=== PATIENT | female | born 1985 | race Caucasian/White ===

== ENCOUNTER → 2023-02-08 | Outpatient (CLI) | payer BC, SELFPAY ==
[2023-02-08 08:32] LABS: Absolute Lymphocyte Count 1.43 X10^3/uL (0.83-4.51); Absolute Neutrophil Count 3.6 X10^3/uL (2.0-7.7); Basophil# 0.02 X10^3/uL; Basophil% 0.4 % (0-1); Eosinophils% 1.8 % (0-5); Hematocrit 41.8 % (37-47); Hemoglobin 13.5 g/dL (12.0-15.0); Lymphocyte # 1.43 X10^3/ul (0.83-4.51); Lymphocyte % 26.3 % (19-41); Mean Corp Hgb Conc 32.3 g/dL (32-36); Mean Corpuscular Hgb 29.8 pg (27.0-32.0); Mean Corpuscular Volume 92.3 fL (81-99); Mean Platelet Vol. 11.2 fl (6.2-12.0); Monocyte# 0.24 X10^3/uL; Monocyte% 4.4 % (0-10); NRBC Flagged by Analyzer 0 % (0-5); Neutrophil # 3.63 X10^3/uL (2.7-7.7); Neutrophil % 66.9 % (47-70); Platelet Count 192 K/mm3 (150-450); RBC Distribution Width CV 12.4 % (11.6-14.6); RBC Distribution Width SD 42.3 fl (35.1-43.9); Red Blood Count 4.53 M/mm3 (4.2-5.4); White Blood Count 5.4 K/mm3 (4.4-11.0)
[2023-02-08 08:48] LABS: Hemoglobin A1c 5.3 % (3.8-5.6)
[2023-02-08 08:54] LABS: ALB/GLOB Ratio 1.1 RATIO (0.9-2.4); AST(SGOT) 9 U/L (15-37); Alanine Aminotransfer ALT/SGPT 20 U/L (13-56); Albumin, Serum 3.9 g/dL (3.2-5.0); Alkaline Phosphatase 58 U/L (45-117); Anion Gap 2 (5-15); BUN 12 mg/dL (7-18); BUN/Creat Ratio 13.7 RATIO (10-20); Calcium,Total 8.8 mg/dL (8.5-10.1); Chloride 106 mmol/L (98-107); Cholesterol 203 mg/dL (200); Creatinine, Serum 0.88 mg/dL (0.55-1.02); EST Glomerular Filtration Rate 76 mL/min (>60); Est Glom Filt Rate - Afr Amer 92 mL/min (>60); Globulin 3.6 g/dL (2.2-4.2); Glucose 108 mg/dL (74-106); High Density Lipoprotein 49 mg/dL; Protein, Total 7.5 g/dL (6.4-8.2); Sodium Level 137 mmol/L (136-145); Thyroid Stim Hormone (TSH) 2.91 uIU/mL (0.358-3.74); Triglycerides 168 mg/dL; Very Low Density Lipoprotein 34 mg/dL (5-40)
[2023-02-08 09:48] LABS: Vitamin D,25 Hydroxy 54.4 ng/mL
== END | disposition home or self-care (01) ==
PROVIDERS: PCP Internal Medicine; Referring Provider Obstetrics & Gynecology; Visit Provider Obstetrics & Gynecology
DX: E66.9 Obesity, unspecified (principal)
CPT/HCPCS: 36415; 80053; 80061; 82306; 83036; 84443; 85025

== ENCOUNTER → 2023-07-21 | Outpatient (CLI) | payer BC, SELFPAY ==
[2023-07-21 10:57] LABS: Absolute Lymphocyte Count 1.24 X10^3/uL (0.83-4.51); Absolute Neutrophil Count 2.8 X10^3/uL (2.0-7.7); Basophil# 0.02 X10^3/uL; Basophil% 0.5 % (0-1); Eosinophil# 0.05 X10^3/uL; Eosinophils% 1.2 % (0-5); Hematocrit 42.1 % (37-47); Hemoglobin 13.3 g/dL (12.0-15.0); Lymphocyte # 1.24 X10^3/ul (0.83-4.51); Lymphocyte % 28.6 % (19-41); Mean Corp Hgb Conc 31.6 g/dL (32-36); Mean Corpuscular Hgb 28.8 pg (27.0-32.0); Mean Corpuscular Volume 91.1 fL (81-99); Mean Platelet Vol. 11.7 fl (6.2-12.0); Monocyte# 0.27 X10^3/uL; Monocyte% 6.2 % (0-10); NRBC Flagged by Analyzer 0 % (0-5); Neutrophil # 2.75 X10^3/uL (2.7-7.7); Neutrophil % 63.3 % (47-70); Platelet Count 212 K/mm3 (150-450); Red Blood Count 4.62 M/mm3 (4.2-5.4); White Blood Count 4.3 K/mm3 (4.4-11.0)
[2023-07-21 11:28] LABS: Vitamin D,25 Hydroxy 55.3 ng/mL
[2023-07-21 11:46] LABS: ALB/GLOB Ratio 1.1 RATIO (0.9-2.4); AST(SGOT) 14 U/L (15-37); Alanine Aminotransfer ALT/SGPT 16 U/L (13-56); Alkaline Phosphatase 58 U/L (45-117); Anion Gap 4 (5-15); BUN 15 mg/dL (7-18); BUN/Creat Ratio 19.8 RATIO (10-20); Calcium,Total 9.7 mg/dL (8.5-10.1); Chloride 107 mmol/L (98-107); Creatinine, Serum 0.76 mg/dL (0.55-1.02); EST Glomerular Filtration Rate 90 mL/min (>60); Est Glom Filt Rate - Afr Amer 109 mL/min (>60); Globulin 3.6 g/dL (2.2-4.2); Glucose 97 mg/dL (74-106); Potassium 3.6 mmol/L (3.5-5.1); Protein, Total 7.6 g/dL (6.4-8.2); Sodium Level 140 mmol/L (136-145)
== END | disposition home or self-care (01) ==
LOC: LAB 09:56
PROVIDERS: PCP Internal Medicine; Referring Provider Nurse Practitioner Family; Visit Provider Nurse Practitioner Family
DX: E88.810 Metabolic syndrome (principal)
CPT/HCPCS: 36415; 80053; 82306; 85025

== ENCOUNTER → 2024-03-05 | Outpatient (CLI) | payer BC, SELFPAY ==
--- NOTE | 2024-03-05 11:46 | RAD_ITS ---
HISTORY: sick. TECHNIQUE: XR Chest 2 Views. COMPARISON: 03/09/2016. FINDINGS: CARDIOMEDIASTINAL BORDERS: Cardiac silhouette within normal limits in size. Mediastinal contour unremarkable. LUNGS: Radiographically clear. PLEURA: No pleural effusion or pneumothorax seen. OSSEOUS STRUCTURES: Unremarkable. RAD/Chest PA and Lateral IMPRESSION: No acute cardiopulmonary process identified. Electronically Signed: Babita Mistry MD at 12:45 EST ,
== END | disposition home or self-care (01) ==
PROVIDERS: PCP Internal Medicine; Referring Provider Physician Assistant; Visit Provider Physician Assistant
DX: R05.9 Cough, unspecified (principal)
CPT/HCPCS: 71046

== ENCOUNTER → 2024-05-02 | Outpatient (CLI) | payer BC, SELFPAY ==
[2024-05-02 08:29] LABS: Absolute Lymphocyte Count 1.18 X10^3/uL (0.83-4.51); Absolute Neutrophil Count 2.3 X10^3/uL (2.0-7.7); Basophil# 0.02 X10^3/uL; Basophil% 0.5 % (0-1); Eosinophil# 0.07 X10^3/uL; Eosinophils% 1.8 % (0-5); Hematocrit 41.7 % (37-47); Hemoglobin 13.4 g/dL (12.0-15.0); Lymphocyte # 1.18 X10^3/ul (0.83-4.51); Mean Corp Hgb Conc 32.1 g/dL (32-36); Mean Corpuscular Hgb 28.9 pg (27.0-32.0); Mean Corpuscular Volume 90.1 fL (81-99); Mean Platelet Vol. 10.4 fl (6.2-12.0); Monocyte# 0.23 X10^3/uL; NRBC Flagged by Analyzer 0 % (0-5); Neutrophil # 2.31 X10^3/uL (2.7-7.7); Neutrophil % 60.7 % (47-70); Platelet Count 212 K/mm3 (150-450); RBC Distribution Width CV 13.2 % (11.6-14.6); RBC Distribution Width SD 43.5 fl (35.1-43.9); Red Blood Count 4.63 M/mm3 (4.2-5.4); White Blood Count 3.8 K/mm3 (4.4-11.0)
[2024-05-02 09:08] LABS: ALB/GLOB Ratio 1.1 RATIO (0.9-2.4); AST(SGOT) 12 U/L (15-37); Alanine Aminotransfer ALT/SGPT 19 U/L (13-56); Albumin, Serum 3.9 g/dL (3.2-5.0); Alkaline Phosphatase 55 U/L (45-117); Anion Gap 3 (5-15); BUN 14 mg/dL (7-18); BUN/Creat Ratio 19.1 RATIO (10-20); Chloride 108 mmol/L (98-107); Cholesterol 204 mg/dL (200); Creatinine, Serum 0.73 mg/dL (0.55-1.02); EST Glomerular Filtration Rate 93 mL/min (>60); Est Glom Filt Rate - Afr Amer 113 mL/min (>60); Globulin 3.5 g/dL (2.2-4.2); Glucose 100 mg/dL (74-106); High Density Lipoprotein 53 mg/dL; Potassium 3.9 mmol/L (3.5-5.1); Protein, Total 7.4 g/dL (6.4-8.2); Sodium Level 138 mmol/L (136-145); Triglycerides 127 mg/dL; Very Low Density Lipoprotein 25 mg/dL (5-40)
[2024-05-03 14:43] LABS: Vitamin D,25 Hydroxy 40.4 ng/mL
== END | disposition home or self-care (01) ==
LOC: PSN 07:52
PROVIDERS: PCP Internal Medicine; Referring Provider Nurse Practitioner Family; Visit Provider Nurse Practitioner Family
DX: E66.89 Other obesity not elsewhere classified (principal); E88.810 Metabolic syndrome; E78.9 Disorder of lipoprotein metabolism, unspecified; R53.83 Other fatigue
CPT/HCPCS: 36415; 80053; 80061; 82306; 85025; 93005

== ENCOUNTER → 2024-05-31 | Outpatient (CLI) | payer BC, SELFPAY ==
--- NOTE | 2024-05-31 09:33 | RAD_ITS ---
EXAM: XR Left Ribs, 2 Views CLINICAL INDICATION: RIB INJURY TECHNIQUE: Frontal and oblique views of the left ribs. COMPARISON: No relevant prior studies available. FINDINGS: LUNGS AND PLEURAL SPACES: Unremarkable as visualized. No consolidation. No pneumothorax. BONES/JOINTS: Unremarkable. No displaced rib fractures. RAD/Ribs Unil 2V No CXR IMPRESSION: No displaced rib fractures. Reading [facility]
== END | disposition home or self-care (01) ==
LOC: MTRAD 09:32
PROVIDERS: PCP Internal Medicine; Referring Provider Physician Assistant Surgical; Visit Provider Physician Assistant Surgical
DX: S29.9XXA Unspecified injury of thorax, initial encounter (principal)
CPT/HCPCS: 71100

== ENCOUNTER → 2024-11-02 | Outpatient (CLI) | payer BC, SELFPAY ==
--- NOTE | 2024-11-02 08:58 | BI_ITS ---
EXAM: DIAG MAMM W/CAD, BILAT; BREAST LIMITED UNILATERAL; BILAT BRST DAMARI STAND ALONE 11/02/2024 CLINICAL HISTORY: F, Age 39 y/o , SCREEN FOR BREAST CANCER; LUMP; ABN MAMM TECHNIQUE: DIAG MAMM W/CAD, BILAT; BREAST LIMITED UNILATERAL; BILAT BRST DAMARI STAND ALONE. COMPARISON: Baseline examination, no priors. FINDINGS: MAMMOGRAM: TISSUE DENSITY: The breasts are heterogeneously dense, which may obscure small masses. The mammogram demonstrates that the patient has dense breasts. Supplemental screening with whole breast ultrasound or MRI may be considered for further evaluation. Left breast: There are triangle skin markers indicating the area of palpable concern in the central lower left breast. Underlying the skin markers are no suspicious mammographic findings. Otherwise, there are no suspicious findings in the left breast. Right breast: There is an oval circumscribed mass in the retroareolar right breast. ULTRASOUND: Left breast: Ultrasound performed of the area of patient's palpable concern in the left breast at 5 o'clock to 5:30 o'clock 8 cm from the nipple demonstrates no suspicious sonographic findings. Right breast: Ultrasound performed of the retroareolar right breast demonstrates an oval circumscribed hypoechoic mass measuring 1.6 x 1.3 x 1.0 cm. This likely represents a fibroadenoma. This correlates with the mammographic finding. BI/DIAG MAMM W/CAD, BILAT IMPRESSION: 1. There are no suspicious mammographic or sonographic findings in the area of patient's concern in the left breast. There is no evidence of malignancy in the left breast. 2. Probably benign mass in the retroareolar right breast, which likely represe nts a fibroadenoma. Recommend short interval six-month diagnostic ultrasound of the right breast to further evaluate. OVERALL FINAL ASSESSMENT BI-RADS 3: PROBABLY BENIGN. RECOMMENDATION: 6 Month Follow-up A letter with findings and recommendations will be mailed to the patient. Reading Location: [id number]
--- OUTSIDE RECORDS SUMMARY | 2024-11-02 09:38 | XMS RPT_ITS | CCD ---
Author Organization [facility] Care Team Providers Care Director Of Sports Medicine Name Role Phone Ronnie Underwoodn Janes Admitting Unavailable DennisbradOrlando perez Attending Unavailable No Doctor Assigned, Nodr Primary Care Unavail able Oberhauser, Marlon L Attending Unavailable No Doctor Assigned, Nodr Primary Care Unavail able Oberhauser, Marlon L Attending Unavailable No Doctor Assigned, Nodr Primary Care Unavail able Oberhauser, Marlon L Attending Unavailable No Doctor Assigned, Nodr Primary Care Unavail able Oberhauser, Marlon L Unavailable Unavailable Unavailable Unavailable Unavailable Oberhauser, Marlon L Unavailable Roberto Manzano Unavailable Unavailable OBERHAUSER, MARLON L Primary Care Unavailable Oberhauser Marlon RUBIN Primary Care Provider Oberhauser Isaías RUBINn L Unavailable OBERHAUSER, MARLON L Attending Unavailable OBERHAUSER, MARLON L Referring Unavailable OBERHAUSER, MARLON L Primary Care Unavailable OBERHAUSER, MARLON L Primary Care Unavailable SUDHA, MARLON E Attending Unavailable OBERHAUSER, MARLON L Primary Care Unavailable SUDHA, MARLON E Attending Unavailable OBERHAUSER, MARLON L Primary Care Unavailable SUDHA, MARLON E Attending Unavailable Oberhauser Dr. Marlon RUBIN Primary Care Provider Dr. Marlon Shepherd DO Referring Provider Taylor Palma Attending Provider Brannon Pan Attending Provider [phone] Brannon Pan Referring Provider Taylor Palma Referring Provider Charly BASILIO, Dr. Stephenson Attending Provider Perry Mancia Attending Provider Perry Mancia Referring Provider Cora RUBIN, Dr. Gomez Primary Care Provider Obercastro RUBIN, Dr. Gomez Referring Provider Gracia NOLASCO-Taylor Murdock Attending Provider Obercastro RUBIN, Dr. Gomez Primary Care Provider Cora RUBIN, Dr. Gomez Referring Provider Gracia NOLASCO-CTaylor Attending Provider Obtaylor DO, Dr. Gomez Primary Care Provider Cora RUBIN, Dr. Gomez Referring Provider Gracia NOLASCO-Taylor Murdock Attending Provider Cora RUBIN, Dr. Gomez Primary Care Provider Cora RUBIN, Dr. Gomez Referring Provider Gracia NOLASCO-Taylor Murdock Attending Provider Taylor Fagan Attending Unavailable Oberhauser, Marlon Referring Unavailable Oberhauser, Marlon Primary Care Unavailable Oberhauser, Marlon Primary Care Unavailable Oberhauser, Marlon Referring Unavailable Taylor Fagan Attending Unavailable Oberhauser, Marlon Primary Care Unavailable Oberhauser, Marlon Referring Unavailable Seema Desir NP Attending Unavailable Taylor Fagan Referring Unavailable Seema Parks Attending Unavailable Oberhauser, Marlon Primary Care Unavailable Taylor Fagan Attending Unavailable Oberhauser, Marlon Referring Unavailable Oberhauser, Marlon Primary Care Unavailable Oberhauser, Marlon Referring Unavailable Taylor Fagan Attending Unavailable Oberhauser, Marlon Primary Care Unavailable Oberhauser, Marlon Primary Care Unavailable Oberhauser, Marlon Referring Unavailable Taylor Fagan Attending Unavailable Taylor Fagan Attending Unavailable Oberhauser, Marlon Primary Care Unavailable Oberhauser, Marlon Referring Unavailable Oberhauser, Marlon Referring Unavailable Oberhauser, Marlon Primary Care Unavailable Taylor Fagan Attending Unavailable Oberhauser, Marlon Referring Unavailable Oberhauser, Marlon Primary Care Unavailable Brannon Pan Attending Unavailable Oberhauser, Marlon Referring Unavailable Oberhauser, Marlon Primary Care Unavailable Taylor Fagan Attending Unavailable Taylor Fagan Referring Unavailable Oberhauser, Marlon Primary Care Unavailable Taylor Fagan Attending Unavailable Taylor Fagan Attending Unavailable Oberhauser, Marlon Referring Unavailable Oberhauser, Marlon Primary Care Unavailable Perry Mancia Attending Unavailable Oberhauser, Marlon Referring Unavailable Oberhauser, Marlon Primary Care Unavailable Taylor Fagan Referring Unavailable Care Physician, No Primary Primary Care Unava ilable Taylor Fagan Attending Unavailable Perry Mancia Referring Unavailable Perry Mancia Attending Unavailable Oberhauser, Marlon Primary Care Unavailable Oberhauser, Marlon Primary Care Unavailable Brannon Pan Referring Unavailable Brannon Pan Attending Unavailable Taylor Fagan Attending Unavailable Oberhauser, Marlon Primary Care Unavailable Oberhauser, Marlon Referring Unavailable Taylor Fagan Attending Unavailable Oberhauser, Marlon Primary Care Unavailable Oberhauser, Marlon Referring Unavailable Taylor Fagan Attending Unavailable Oberhauser, Marlon Primary Care Unavailable Oberhauser, Marlon Referring Unavailable Oberhauser, Marlon Primary Care Unavailable Taylor Fagan Attending Unavailable Oberhauser, Marlon Referring Unavailable Medications Current Medications Medication Drug Class(es) Dates Sig (Normalized) Sig (Original) [id number] 200 actuat albuterol 0.09 mg/actuat metered dose inhaler (5 sources) beta2-Adrenergic Agonist Start: 02-23-2024 take 1-2 puff(s) by inhalation every four hours in the evening for wheezing albuterol 90 mcg/actuation inhaler Indications: Acute bronchitis, unspecified organism Inhale 1-2 puffs every 4 hours if needed for wheezing or shortness of breath. 6.7 g 02/23/2024 3:38 PM EST 02/23/2024 Active Start: 03-21-2021 End: 03-30-2021 take 2 puff(s) by inhalation every four hours as needed for wheezing albuterol 90 mcg/inh inhalation aerosol ; 2 puff(s) inhaled every 4 hours, As Needed for wheezing or shortness of breath Quantity: 1 Refills: 0 Ordered: 21-Mar-2021 Marlon Presley Start: 21-Mar-2021 End: 30-Mar-2021 Generic Substitution Allowed Comments: For inhalation only.It is very important that you take or use this exactly as directed. Do not skip doses or discontinue unless directed by your doctor.Obtain medical advice before taking any non-prescription drugs as some may affect the action of this medication.Shake well before use. Start: 03-20-2021 End: 07-01-2021 take 1-2 puff(s) by inhalation every six hours as needed Albuterol Sulfate HFA 108 (90 Base) MCG/ACT Inhalation Aerosol Solution INHALE 1 TO 2 PUFFS EVERY 6 HOURS NEEDED. Quantity: 1 Refills: 0 Ordered: 20-Mar-2021 Marlon Shepherd DO Start : 20-Mar-2021 End : 01-Jul-2021 Complete Comment on above: For inhalation only. It is very important that you take or use this exactly as directed. Do not skip doses or discontinue unless directed by your doctor.Obtain medical advice before taking any non-prescription drugs as some may affect the action of this medication.Shake well before use. clobetasol propionate 0.5 mg/ml topical solution (2 sources) Corticosteroid Start: clobetasol (Temovate) 0.05 % external solution Apply to any areas of psoriasis on the scalp or ears 1x daily as needed 50 mL 6 07/21/2023 1:04 PM EDT 07/14/2023 Active dextromethorphan hydrobromide 3 mg/ml / promethazine hydrochloride 1.25 mg/ml oral solution (2 sources) Phenothiazine, Uncompetitive L-tctjmx-J-aspartate Receptor Antagonist, Sigma-1 Agonist Start: take 5 mL by mouth every six hours in the evening for cough promethazine-DM (Phenergan-DM) 6.25-15 mg/5 mL syrup Indications: Acute bronchitis, unspecified organism Take 5 mL by mouth every 6 hours if needed for cough. *caution - can cause drowsiness* 120 mL 02/23/2024 3:38 PM EST 02/23/2024 Active doxycycline monohydrate 100 mg oral capsule (3 sources) Tetracycline-class Drug Start: End: take 1 capsule by mouth twice daily in the evening doxycycline (Monodox) 100 mg capsule Indications: Acute bronchitis, unspecified organism Take 1 capsule (100 mg) by mouth 2 times a day for 10 days. Take with a full glass of water and do not lie down for at least 30 minutes after. 20 capsule 02/23/2024 3:38 PM EST 02/23/2024 03/04/2024 Active Start: 07-01-2021 take 1 tablet by ruben th twice daily Doxycycline Hyclate 100 MG Oral Tablet TAKE 1 TABLET TWICE DAILY UNTIL GONE. Quantity: 14 Refills: 0 Ordered: 01-Jul-2021 Orlando Underwood PA-C Start : 01-Jul-2021 Active Start: 02-07-2019 End: 02-13-2019 take 1 tablet by mouth twice daily doxycycline hyclate 100 mg oral tablet ; 1 tab(s) orally 2 times a day Quantity: 14 Refills: 0 Ordered: 07-Feb-2019 Dylan Denny Start: 07-Feb-2019 End: 13-Feb-2019 Status: Other Generic Substitution Allowed Comments: Avoid prolonged or excessive exposure to direct and/or artificial sunlight while taking this medication.Do not take this drug if you are .Finish all this medication unless otherwise directed by prescriber.Medication should be taken with plenty of water. Comment on above: Avoid prolonged or e xcessive exposure to direct and/or artificial sunlight while taking this medication.Do not take this drug if you are .Finish all this medication unless otherwise directed by prescriber.Medication should be taken with plenty of water. ELDERBERRY FRUIT (5 sources) ELDERBERRY FRUIT ORAL Take by mouth. Active ELDERBERRY FRUIT ORAL Take by mouth. 0 Active fluconazole 150 mg oral tablet (2 sources) Azole Antifungal Start: 02-23-2024 End: 02-24-2024 take 1 tablet by mouth once in the evening fluconazole (Diflucan) 150 mg tablet Indications: Acute bronchitis, unspecified organism Take 1 tablet (150 mg) by mouth 1 time for 1 dose. Take at first sign of yeast infection. 1 tablet 02/23/2024 3:38 PM EST 02/23/2024 02/24/2024 Active Start: 03-21-2021 End: 03-21-2021 take 1 tablet by mouth once Diflucan 150 mg oral table t ; 1 tab(s) orally once at first sign of yeast infection; can repeat in 72 hours if symptoms persist Quantity: 2 Refills: 0 Ordered: 21-Mar-2021 Marlon Presley Start: 21-Mar-2021 End: 21-Mar-2021 Generic Substitution Allowed Comments: Do not take this drug if you are .Finish all this medication unless otherwise directed by prescriber. Comment on above: Do not take this radha g if you are .Finish all this medication unless otherwise directed by prescriber. levocetirizine dihydrochloride 5 mg oral tablet (14 sources) Histamine-1 Receptor Antagonist Start: take 1 tablet by mouth once daily Levocetirizine (Xyzal) 5 mg tablet Active 5 mg PO DAILY September 09, 2021 12:00am Xyzal 5 MG TABS Use as directed. Quantity: 0 Refills: 0 Ordered: 01-Sep-2018 DO Active Multivitamin preparation (1 source) Start: 09-09-2021 take 1 tablet by mouth once daily Multivitamin Active 1 TABLET PO DAILY September 08, 2021 11:00pm Multivitamin tablet (5 sources) Start: 09-09-2021 Multivitamin t ablet Active 1 {tbl} PO DAILY September 09, 2021 12:00am multivitamin tablet,chewable (5 sources) multivitamin tablet,chewable Chew. Active multivitamin tab let,chewable Chew. 0 Active phentermine hydrochloride 37.5 mg oral tablet (20 sources) Sympathomimetic Amine Anorectic Start: 07-26-2024 End: 09-18-2024 take 1 tablet by mouth once daily Phentermine (Adipex-P) 37.5 mg tablet Active 37.5 mg PO daily 12 04September 18, 2024 9:17am BMI 29.7 Start: 03-29-2024 End: 07-26-2024 Phentermine (Adipex-P) 37.5 mg tablet Discontinued 18.75 mg PO daily 16 May 31, 2024 11:35am July 26, 2024 8:54am BMI 29.7 Start: 05-27-2023 End: 03-05-2024 take 1 tablet by mouth once daily Phentermine (Adipex-P) 37.5 mg tablet Discontinued 37.5 mg PO daily 30 0 February 08, 2024 5:34pm March 05, 2024 12:33pm BMI 30 Start: 02-14-2023 End: 05-27-2023 Phentermine (Adipex-P) 37.5 mg tablet Discontinued 18.75 mg PO daily 15 May 16, 2023 12:33pm May 27, 2023 10:09am BMI 31 predniSONE 10 mg oral tablet (3 sources) Start: 02-23-2024 predniSONE (De ltasone) 10 mg tablet Indications: Acute bronchitis, unspecified organism Take 6 tabs daily x1 day, then take 5 tabs daily x1 day, then take 4 tabs daily x1 day, then take 3 tabs daily x1 day, then take 2 tabs daily x1 day, then take 1 tab daily x1 day. Take with a meal. 21 tablet 02/23/2024 3:38 PM EST 02/23/2024 Active Start: 10-21-2022 End: 06-14-2023 take 2 tablets by mouth three times daily, then take 2 tablets by mouth twice daily, then take 2 tablets by mouth once daily predniSONE (Deltasone) 10 mg tablet TAKE 2 TABS ORALLY 3 TIMES A DAY FOR 4 DAYS, THEN TAKE 2 TABS 2 TIMES A DAY FOR 4 DAYS, THEN 2 TABS DAILY FOR 4 DAYS 48 tablet 0 10/21/2022 06/14/2023 Discontinued (Therapy completed) sulfamethoxazole 800 mg / trimethoprim 160 mg oral tablet (1 source) Dihydrofolate Reductase Inhibitor Antibacterial, Sulfonamide Antimicrobial Start: 03-22-2024 End: 04-01-2024 take 1 tablet by mouth twice daily in the evening sulfamethoxazole-trimethoprim (Bactrim DS) 800-160 mg tablet Indications: Cellulitis of right breast Take 1 tablet by mouth 2 times a day for 10 days. Take with a meal. 20 tablet 03/22/2024 5:12 PM EST 03/22/2024 04/01/2024 Active SUMAtriptan 50 mg oral tablet (4 sources) Serotonin-1b and Serotonin-1d Receptor Agonist End: 06-10-2022 SUMAtriptan (Imitrex) 50 mg tablet Take by mouth. 0 06/10/2022 Discontinued (Therapy completed) SUMAtriptan Succ inate 50 MG Oral Tablet TAKE DIRECTED. Quantity: 0 Refills: 0 Ordered: 01-Sep-2018 DO Active triamcinolone acetonide 0.055 mg/actuat metered dose nasal spray (16 sources) Corticosteroid Start: 06-27-2024 Triamcinolone Acetonide (Nasacort) 55 mcg aerosol,spray Active 2 NMA INTRANASAL daily June 27, 2024 12:00am administer into each nostril Start: 09-09-2021 End: 03-05-2024 Triamcinolone Acetonide (Adriano acort) 55 mcg aerosol,spray Discontinued 2 NMA INTRANASAL DAILY September 09, 2021 12:00am March 05, 2024 12:33pm administer into each nostril Start: 09-09-2021 take 1 spray(s) nasa l route once daily Triamcinolone Acetonide (Nasacort) 55 mcg aerosol,spray Active 2 SPRAY INTRANASAL DAILY September 08, 2021 11:00pm administer into each nostril Start: 07-01-2021 triamcinolone (Nasacort) 55 mcg nasal inhaler Administer into affected nostril(s). 07/01/2021 Active Start: 07-01-2021 Nasacort Aller gy 24HR 55 MCG/ACT Nasal Aerosol USE DIRECTED Quantity: 1 Refills: 0 Ordered: 01-Jul-2021 Orlando Underwood PA-C Start : 01-Jul-2021 Active zyzal (1 source) zyzal Quantity: 0 Refills: 0 Ordered: 07-Feb-2019 Stefani Dumas Status: Other Generic Substitution Allowed Completed/Discontinued Medications Medication Drug Class(es) Dates Sig (Normalized) Sig (Original) Albuterol Sulfate 90 mcg/actuation HFA aerosol inhaler (5 sources) Start: 03-05-2024 End: 06-27-2024 Albuterol Sulfate 90 mcg/actuation HFA aerosol inhaler Discontinued INHALATION March 05, 2024 1:00am June 27, 2024 8:36am Start: 03-05-2024 Albuterol Sulf ate 90 mcg/actuation HFA aerosol inhaler Active INHALATION March 05, 2024 1:00am amoxicillin 875 mg / clavulanate 125 mg oral tablet (2 sources) Penicillin-class Antibacterial Start: 01-25-2020 End: 01-15-2021 take 1 tablet by mouth once daily Amoxicillin-Pot Clavulanate 875-125 MG Oral Tablet TAKE 1 TABLET EVERY 12 HOURS DAILY. Quantity: 14 Refills: 0 Ordered: 30-May-2020 Marlon Shepherd DO Start : 30-May-2020 End : 15-Jan-2021 Complete APAP CAPS (3 sources) APAP CAPS Use as directed. Quantity: 0 Refills: 0 Ordered: 01-Sep-2018 DO Active Ascorbic Acid-Elderberry Fruit (Airborne (Elderberry)) 100-50 mg tablet,chewable (6 sources) Start: 09-09-2021 End: 09-15-2022 Ascorbic Acid-Elderberry Fruit (Airborne (Elderberry)) 100-50 mg tablet,chewable Discontinued {tbl} PO September 09, 2021 12:00am September 15, 2022 8:43am Start: 09-09-2021 End: 09-15-2022 Ascorbic Acid-Elderberry Fru it (Airborne (Elderberry)) 100-50 mg tablet,chewable Discontinued TABLET PO September 08, 2021 11:00pm September 15, 2022 7:43am azithromycin 250 mg oral tablet (7 sources) Macrolide Antimicrobial Start: 03-05-2024 End: 03-29-2024 Azithromycin 250 mg tablet Discontinued 250 mg PO .COMPLEX 12 0 March 05, 2024 1:00am March 29, 2024 12:07pm 2 tablets (500 mg) on day 1, then 1 tablet daily on days 2 through 11 Start: 03-21-2021 End: 03-25-2021 Zithromax Z-Jovon 250 mg oral tablet ; 2 tab(s) by mouth at once on day 1, then 1 tablet once a day on days 2-5 Quantity: 6 Refills: 0 Ordered: 21-Mar-2021 Marlon Presley Start: 21-Mar-2021 End: 25-Mar-2021 Generic Substitution Allowed Comments: Do not take dairy products, antacids, or iron preparations within one hour of this medication.Finish all this medication unless otherwise directed by prescriber. Comment on above: Do not take dairy pr oducts, antacids, or iron preparations within one hour of this medication.Finish all this medication unless otherwise directed by prescriber. benzonatate 200 mg oral capsule (9 sources) Non-narcotic Antitussive Start: 03-05-20 End: 03-29-19 take 1 capsule by mouth three times daily as needed for cough Benzonatate 200 mg capsule Discontinued 200 mg PO THREE TIMES A DAY as needed for cough 20 0 March 05, 2024 1:00am March 29, 2024 12:07pm Start: 03-21-2021 End: 03-30-2021 take 2 capsules by mouth every eight hours as needed benzonatate 100 mg oral capsule ; 1-2 cap(s) orally every 8 hours, As Needed for cough Quantity: 60 Refills: 0 Ordered: 21-Mar-2021 Marlon Presley Start: 21-Mar-2021 End: 30-Mar-2021 Generic Substitution Allowed Comments: May cause drowsiness. Alcohol may intensify this effect. Use care when operating dangerous machinery.Swallow whole. Do not crush. Start: 03-20-2021 End: 07-01-2021 take 1 capsule by mouth three times daily as needed Benzonatate 100 MG Oral Capsule TAKE 1 CAPSULE 3 TIMES DAILY NEEDED. Quantity: 30 Refills: 3 Ordered: 20-Mar-2021 Marlon Shepherd DO Start : 20-Mar-2021 End : 01-Jul-2021 Complete Comment on above: May cause drowsiness . Alcohol may intensify this effect. Use care when operating dangerous machinery.Swallow whole. Do not crush. biotin 5 mg oral capsule (6 sources) Start : 09-09 End: 03-05 take 1 capsule by mouth once daily Biotin 5 mg capsule Discontinued 5 mg PO DAILY September 09, 2021 12:00am March 05, 2024 12:33pm calcium carbonate 1500 mg / cholecalciferol 500 unt oral capsule (6 sources) Vitamin D Start : 09-09 End: 03-05 Calcium Carbonate-Vitamin D3 (Calcium 600 With Vitamin D3) 600 mg-12.5 mcg (500 unit) capsule Discontinued NMA PO September 09, 2021 12:00am March 05, 2024 12:33pm ciprofloxacin 500 mg oral tablet (1 source) Quinolone Antimicrobial Start : 05-03 End: 05-12 take 1 tablet by mouth twice daily Cipro 500 mg oral tablet ; 1 tab(s) orally 2 times a day Quantity: 20 Refills: 0 Ordered: 03-May-2020 Jose Daniels Start: 03-May-2020 End: 12-May-2020 Status: Other Generic Substitution Allowed Comments: Avoid prolonged or excessive exposure to direct and/or artificial sunlight while taking this medication.Check with your doctor before becoming .Do not take dairy products, antacids, or iron preparations within one hour of this medication.Finish all this medication unless otherwise directed by prescriber.Medication should be taken with plenty of water. Comment on above: Avoid prolonged or e xcessive exposure to direct and/or artificial sunlight while taking this medication.Check with your doctor before becoming .Do not take dairy products, antacids, or iron preparations within one hour of this medication.Finish all this medication unless otherwise directed by prescriber.Medication should be taken with plenty of water. cyclobenzaprine hydrochloride 10 mg oral tablet (5 sources) Muscle Relaxant Start : 05-31 End: 06-05 take 1 tablet by mouth three times daily as needed for muscle spasms Cyclobenzaprine 10 mg tablet Discontinued 10 mg PO THREE TIMES A DAY as needed for muscle spasm 20 5 0 May 31, 2024 12:00am June 04, 2024 12:00am June 05, 2024 12:12am 12 hr guaiFENesin 600 mg extended release oral tablet (5 sources) Start : 03-05 End: 06-27 take 1 tablet by mouth twice daily, then take 1 tablet by mouth every twelve hours Guaifenesin (Mucinex) 600 mg tablet extended release 12hr Discontinued 600 mg PO TWICE A DAY March 05, 2024 1:00am June 27, 2024 8:36am methylPREDNISolone 4 mg oral tablet (5 sources) Corticosteroid Start : 05-31 End: 06-06 take 1 tablet by mouth once Methylprednisolone (Medrol (Jovon)) 4 mg tablets,dose pack Discontinued 4 mg PO per package directions 21 6 0 May 31, 2024 12:00am June 05, 2024 12:00am June 06, 2024 12:11am mometasone furoate 0.05 mg/actuat metered dose nasal spray (3 sources) Corticosteroid End: 07-01 Nasonex 50 MCG/ACT SUSP Use as directed. Quantity: 0 Refills: 0 Ordered: 01-Jul-2021 DO End : 01-Jul-2021 Complete Nasonex 50 MCG/A CT SUSP Use as directed. Quantity: 0 Refills: 0 Ordered: 01-Sep-2018 DO Active naproxen 500 mg oral tablet (6 sources) Nonsteroidal Anti-inflammatory Drug Start: 03-09-2016 End: 09-09-2021 take 1 tablet by mouth twice daily Naproxen (Naprosyn) 500 MG tablet Discontinued 500 mg PO TWICE A DAY March 09, 2016 1:00am September 09, 2021 8:45am Problems Active Problems Problem Classification Problem Date Documented Da te Episodic/Chronic Abdominal pain (3 sources) Pain in pelvis; Translations: [Pelvic and perineal pain] Onset: 10-31-2024 09-18-2024 Episodic Comment on above: resolved as of today Acute bronchitis (5 sources) Acute bronchitis; Translations: [Acute bronchitis] Onset: 02-23-2024 03-21-2021 Episodic Asthma (10 sources) Reactive airway disease; Translations: [Asthma, unspecified type, unspecified] Onset: 06-01-2022 06-14-2023 Chronic Menstrual disorders (3 sources) Irregular menstruation, unspecified; Translations: [Irregular periods] Onset: 06-11-2022 Chronic Nonmalignant breast conditions (6 sources) Cellulitis of breast; Translations: [Mastitis without abscess] Onset: 03-22-2024 03-22-2024 Episodic Other lower respiratory disease (6 sources) Cough; Translations: [Cough] 03-05-2024 Episodic Other nervous system disorders (3 sources) H/O: migraine; Translations: [Personal history of other disorders of nervous system and sense organs] Episodic Other nutritional; endocrine; and metabolic disorders (9 sources) Obesity; Translations: [Other obesity] 07-21-2023 Chronic Comment on above: Nutrition plan: Anson snyder calorie restricted nutritional plan 1200 dulce. but no less than 1000. Currently at 1776. Discussed calorie deficit; Myfitnesspal-continue to track as able; protein Approx 95g protein maintain; carbs 200; limit carbs in the next month--doing better with this. Adding variety to her diet; doing okay with this. . Medication plan: Increase phentermine to full tab. EKG stable. Monitor for side effects. control- vasectomy. Behavior intervention: Continue myfitnesspal; limit caffeine intak e in morning until after breakfast. Sleep: routine; make so this is consistent in timing- doing well with this. Exercise plan: [place] steps [place] farm; tredmill occasionally; Added small weights; doing well with this. Getting about 7,000 steps in a day. NEAT activity; resistance training. Nutrition plan: [place]son wang[place]vin calorie restricted nutritional plan 1200 dulce. but no less than 1000. Currently at 1776. Discussed calorie deficit; (has not been able to track much) [employer]fitnesspal-continue to track as able; protein Approx 95g protein maintain; carbs 200; limit carbs in the next month. Adding variety to her diet; doing okay with this. . Medication plan: Phentermine full tab. EKG stable. Monitor for side effects. control- vasectomy. Behavior intervention: Continue myfitnesspal; limit caffeine intake in morning until after breakfast. Sleep: routine; make so this is consistent in timing- doing well with this. Exercise plan: Getting steps around the farm; Add in small weights when able; Getting about 7,000 steps in a day. NEAT activity. Other nutritional; endocrine; and metabolic disorders (20 sources) Cholesterol level - finding; Translations: [Disorder of lipoprotein metabolism, unspecified] 05-01-2024 Chronic Comment on above: recommend heart heal thy diet and weight reduction; last check remains stable. Other nutritional; endocrine; and metabolic disorders (20 sources) Metabolic syndrome X; Translations: [Metabolic syndrome] 02-14-2023 Chronic Comment on above: recommend 5-10% weig ht reduction. elevated fasting glucose, h/o GDM WC 97cm Other nutritional; endocrine; and metabolic disorders (18 sources) Body mass index 30+ - obesity; Translations: [Body mass index (BMI) 30.0-30.9, adult] 05-01-2024 Chronic Comment on above: SW- 211 02/14; 192 lb currently; back up to 201 today 05/01/24. Initial goal- s/p 5% weight reduction within 3 months of nutritional and medication intervention recommendations.initial obesity assessment lab panel reviewed-maintenance labs reviewed. nitial goal- 5% weight reduction within 3 months of nutritional and medication intervention recommendations.initial obesity assessment lab panel ordered SW- Initial goal- 5% weight reduction within 3 months of nutritional and medication intervention recommendations.initial obesity assessment lab panel ordered Other nutritional; endocrine; and metabolic disorders (1 source) Disorder of lipoprotein metabolism, unspecified; Translations: [Disorder of lipoprotein metabolism, unspecified] Onset: 03-05-2024 Chronic Other nutritional; endocrine; and metabolic disorders (1 source) Metabolic syndrome; Translations: [Metabolic syndrome] Onset: 03-05-2024 Chronic Other nutritional; endocrine; and metabolic disorders (1 source) Body mass index (BMI) 30.0-30.9, adult; Translations: [Body mass index [BMI] 30.0-30.9, adult] Onset: 03-05-2024 Chronic Other nutritional; endocrine; and metabolic disorders (3 sources) H/O: obesity; Translations: [Personal history of other endocrine, metabolic, and immunity disorders] Episodic Other nutritional; endocrine; and metabolic disorders (2 sources) Other symptoms and signs concerning food and fluid intake; Translations: [Other symptoms and signs concerning food and fluid intake] Onset: 06-11-2022 Episodic Other nutritional; endocrine; and metabolic disorders (20 sources) Overweight in adulthood with body mass index of 25 or more but less than 30; Translations: [Body mass index (BMI) 29.0-29.9, adult] Onset: 06-14-2023 06-14-2023 Episodic Comment on above: 02/14; 191 to day; down additional 3 pounds. Total loss 10%; 196lb; back up to 201lbs today (05/01/24)--down to 196lbs. Initial goal- s/p 5% weight reduction within 3 months of nutritional and medication intervention recommendations. Additional 5% goal within the next 3 months. initial obesity assessment lab panel reviewed; maintenance labs reviewed 04/2024; reviewed and stable. Nutrition plan: Balanced calorie restricted nutritional plan 1200 dulce. but no less than 1000. Currently at 1776. Discussed calorie deficit; Myfitnesspal-continue to track as able; protein Approx 95g protein; carbs 200; limit carbs in the next month--doing better with this. Switch up foods and add variety to her diet. Switch up to adding more vegetables to diet. Medication plan: Continue low dosing of phentermine (18.75mg) at this time. EKG stable; okay to increase if needed in the future. Monitor for side effects. control- vasectomy. Behavior intervention: Continue myfitnesspal; limit caffeine intake in morning until after breakfast. Sleep: routine; make so this is consistent in timing-doing well with this. Exercise plan: incorporate Treadmill at 3.5 currently; added small weights; doing well with this. Getting about 7,000 steps in a day. NEAT activity; resistance training. 02/14; 191 to day; down additional 3 pounds. Total loss 10%; 196lb; back up to 201lbs today (05/01/24)--down to 196lbs. Initial goal- s/p 5% weight reduction within 3 months of nutritional and medication intervention recommendations. Additional 5% goal within the next 3 months. initial obesity assessment lab panel reviewed; maintenance labs reviewed 04/2024; reviewed and stable. Nutrition plan: Balanced calorie restricted nutritional plan 1200 dulce. but no less than 1000. Currently at 1776. Discussed calorie deficit; Myfitnesspal-continue to track as able; protein Approx 95g protein maintain; carbs 200; limit carbs in the next month--doing better with this. Switch up foods and add variety to her diet. Switch up to adding more vegetables to diet. Medication plan: Continue low dosing of phentermine (18.75mg) at this time. EKG stable; okay to increase if needed in the future. Monitor for side effects. control- vasectomy. Behavior intervention: Continue myfitnesspal; limit caffeine intake in morning until after breakfast. Sleep: routine; make so this is consistent in timing- doing well with this. Exercise plan: Getting steps around the farm; tredmill occasionally; Added small weights; doing well with this. Getting about 7,000 steps in a day. NEAT activity; resistance training. 02/14; 191 to day; down additional 3 pounds. Total loss 10%; 196lb; back up to 201lbs today (05/01/24)--down to 196lbs. Initial goal- s/p 5% weight reduction within 3 months of nutritional and medication intervention recommendations. Additional 5% goal within the next 3 months. initial obesity assessment lab panel reviewed; maintenance labs reviewed 04/2024; reviewed and stable. Nutrition plan: Balanced calorie restricted nutritional plan 1200 dulce. but no less than 1000. Currently at 1776. Discussed calorie deficit; Myfitnesspal-continue to track as able; protein Approx 95g protein maintain; carbs 200; limit carbs in the next month--doing better with this. Adding variety to her diet; doing okay with this. . Medication plan: Increase phentermine to full tab. EKG stable. Monitor for side effects. control- vasectomy. Behavior intervention: Continue myfitnesspal; limit caffeine intake in morning until after breakfast. Sleep: routine; make so this is consistent in timing- doing well with this. Exercise plan: Getting steps around the farm; tredmill occasionally; Added small weights; doing well with this. Getting about 7,000 steps in a day. NEAT activity; resistance training. 02/14; 191 to day; down additional 3 pounds. Total loss 10%; 196lb; back up to 201lbs today (05/01/24)--down to 196lbs. Initial goal- s/p 5% weight reduction within 3 months of nutritional and medication intervention recommendations. Additional 5% goal within the next 3 months. initial obesity assessment lab panel reviewed; maintenance labs reviewed 04/2024; reviewed and stable. 02/14; curren t 197 lbs Initial goal- s/p 5% weight reduction within 3 months of nutritional and medication intervention recommendations. Additional 5% goal within the next 3 months. initial obesity assessment lab panel reviewed; maintenance labs reviewed 04/2024; reviewed and stable. Other screening for suspected conditions (not mental disorders or infectious disease) (4 sources) Encounter for screening for lipoid disorders; Translations: [Patient encounter status] Onset: 06-11-2022 Episodic Other upper respiratory disease (6 sources) Seasonal allergy; Translations: [Other seasonal allergic rhinitis] 09-09-2021 Chronic Unclassified (1 source) Other obesity not elsewhere classified; Translations: [Other obesity not elsewhere classified] Onset: 05-17-2024 Unclassified (1 source) Cough, unspecified; Translations: [Cough, unspecified] Onset: 03-29-2024 Viral infection (2 sources) Disease caused by 2019-nCoV 03-21-2021 Comment on above: COUGH POST COVID X 1 MONTH Past or Other Problems Problem Classification Problem Date Documented Date Episodic/Chronic Conditions associated with dizziness or vertigo (3 sources) Dizziness; Translations: [Dizziness and giddiness] Onset: 06-17-2023 06-17-2023 Episodic Diabetes mellitus without complication (20 sources) Hyperglycemia; Translations: [Impaired fasting glucose] Onset: 03-05-2024 02-14-2023 Episodic Comment on above: nl HgA1C. Headache; including migraine (8 sources) Migraine with aura; Translations: [Migraine with aura, not intractable, without status migrainosus] Onset: 09-15-2017 Resolved: 06-10-2022 06-14-2023 Chronic Malaise and fatigue (20 sources) Other fatigue; Translations: [Fatigue] Onset: 06-10-2022 Episodic Comment on above: nl cbc vit d and tsh Other injuries and conditions due to external causes (1 source) Unspecified injury of thorax, initial encounter; Translations: [Unspecified injury of thorax, initial encounter] Onset: 06-07-2024 Episodic Other nutritional; endocrine; and metabolic disorders (3 sources) Body mass index (BMI) 29.0-29.9, adult; Translations: [Body mass index (BMI) 29.0-29.9, adult] Onset: 06-14-2023 Episodic Other nutritional; endocrine; and metabolic disorders (1 source) Failure to lose weight; Translations: [Other symptoms and signs concerning food and fluid intake] 06-10-2022 Episodic Other skin disorders (6 sources) Folliculitis; Translations: [Other specified diseases of hair and hair follicles] Onset: 06-01-2022 Resolved: 06-10-2022 06-10-2022 Episodic Other upper respiratory infections (8 sources) Sinusitis; Translations: [Unspecified sinusitis (chronic)] Onset: 06-01-2022 Resolved: 06-10-2022 06-10-2022 Chronic Other upper respiratory infections (14 sources) Streptococcal sore throat; Translations: [Streptococcal sore throat] Onset: 06-01-2022 Resolved: 06-10-2022 06-10-2022 Episodic Superficial injury; contusion (10 sources) Contusion of chest; Translations: [Contusion of unspecified front wall of thorax, initial encounter] Onset: 05-31-2024 05-31-2024 Episodic Unclassified (6 sources) Normal hemoglobin A1c level; Translations: [Normal hemoglobin A1c level] 02-08-2023 Unclassified (5 sources) Onset: 06-10-2022 06-10-2022 Results Test Name Value Interpretation Reference Range Facility Senior Analytical Chemist Office Visit Reporton 10-31-2024 Senior Analytical Chemist Office Visit Report [facility] [address], [address] [place] [address] OFFICE VISIT Date of Service: 10/31/24 MR#: [id number] Acct: [id number] Name: STEFANI SANTOS Rep #: [id number] : 1985 Provider: AALIYAH Roberts Age/Sex: 39/F Location: [facility] [place], [place] Status: Signed Intake Vital Signs 09/18/24 08:37 10/31/24 13:03 Height 5 ft 8 in 5 ft 8 in Weight: 197 lb 6 oz 194 lb BMI 29.9 29.5 BP 124/82 H 138/92 H Pulse 80 87 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 Is patient in pain?: No Allergies No Known Allergies Allergy (Verified 10/31/24 13:06) Medications ???Medication ???Instructions ???Recorded ???Confirmed ???Type levocetirizine 5 mg tablet (Xyzal) 5 mg PO DAILY 09/09/21 10/31/24 History multivitamin 1 tab PO DAILY 09/09/21 10/31/24 H istory triamcinolone acetonide 55 mcg 2 spray intranasal QDAY 06/27/24 0 10/31/24 History nasal spray aerosol (Nasacort) phentermine 37.5 mg tablet 37.5 mg PO QDAY #30 tabs 10/31/24 10/31/24 Rx (Adipex-P) Is last menstrual period known: Yes Last Menstrual Period: 10/16/24 Post menopausal: No Patient : No : No [facility] Medical History Normal hemoglobin A1c level ASCUS with positive high risk HPV SERA I (cervical intraepithelial neoplasia I) Surgical History S/P S/P wisdom tooth extraction S/P cholecystectomy Family History Mother Hypertension Kidney disease CLL (chronic lymphocytic leukemia) Melanoma Father Hyperlipidemia Grandfather Myocardial infarction Grandmother Dementia Other Colon cancer Social History Smoking Status: Former smoker alcohol intake: current details: occasionally substance use type: does not use caffeine: Yes what type of physical activity do you participate in: walking and weight training frequency: 3-4 times per week seatbelt use: always do you feel safe at home: Yes additional social history: - Rufino History 3 Elective abortions Hx Para 2 Spontaneous abortions Hx # Term Pregnancies Ectopic pregnancies Hx # Pregnancies Multiple births # of living children Past Pregnancies Del. Date Name GA/Weeks Outcome Route Bth Weight Gen Labor Lgth Anesthesia Del [facility] Provider FOB Unknown Sergey Unknown Cruz HPI Encounter for routine gynecological examination Details: STEFANI SANTOS is a 39 year old who presents for annual exam. She is also in weight management program; continues to take Phentermine full tab and doing well with this--she is in need of refills. She reports no side effects for this and doing well. Taking compliantly. She continues with her formal nutrition plan as well as exercise. Last PAP: 2020; normal. HPV neg History of abnormal PAP: SERA I in 2014 with hx HPV positive per patient; normal PAPs since. Last mammogram: due History of abnormal mammogram: n/a Colon cancer screening: age 44 Other preventative health care screenings: Marlon Shepherd. Female Reproductive History Last Menstrual Period: 10/16/24 Cycle Length: 21-35 Bleeding Duration: 5 Questions: metrorrhagia: No, sexually active: Yes (vasectomy), dyspareunia: No and PCB: No ROS Const Constitutional: Denies chills, fatigue, fever(s), headache(s) or weight loss Eyes Eyes: Denies change in vision ENT ENT: Denies dizziness Cardio Card: Denies chest pain at rest or palpitations Resp Resp: Denies cough or dyspnea GI GI: Denies abdominal pain, constipation or nausea : Denies difficulty voiding, dysuria, hematuria, pelvic pain, prolapse symptoms, urinary incontinence, vaginal discharge, vaginal dryness, vaginal odor or vaginal pruritus Skin Skin/Breast: Denies alopecia or rash Neuro Neuro: Denies dizziness Psych Psych: Denies anxiety or depression Endo Endo: Denies cold intolerance, excessive sweating or heat intolerance Exam Const General: cooperative, healthy appearing, comfortable and no acute distress Nutritional Appearance: well nourished Orientation: alert HENMT Head: normal to inspection and normocephalic Ears: hearing grossly normal bilaterally and external ears normal Nose: external nose normal Face and sinus: normal facial exam Eyes General: appearance normal, both eyes and all related structures Neck Neck: normal visual inspection, full ROM and no lymphadenopathy Thyroid: thyroid normal Chest Chest palpation inspection: normal inspection of the chest Breast inspection: normal inspection of the breasts and normal inspection of the axillae Breast palpation: norm (more content not included)... Normal [facility] Senior Analytical Chemist Office Visit Reporton 09-18-2024 Senior Analytical Chemist Office Visit Report [facility]'s [address], [address] [place] [address] OFFICE VISIT Date of Service: 09/18/24 MR#: [id number] Acct: [id number] Name: STEFANI SANTOS Rep #: [id number] : 1985 Provider: AALIYAH Roberts Age/Sex: 39/F Location: [facility] [place] [place] Status: Signed with Addenda ADDENDUM by AALIYAH Fagan on 09/18/24 at 0920 Assessment and Plan Assessment and Plan (1) Elevated fasting glucose: Status: Acute Comment: nl HgA1C. (2) Borderline high cholesterol: Status: Acute Comment: recommend heart healthy diet and weight reduction; last check remains stable. (3) Metabolic syndrome: Status: Acute Comment: recommend 5-10% weight reduction. elevated fasting glucose, h/o GDM WC 97cm (4) Fatigue: Status: Acute Comment: nl cbc vit d and tsh (5) BMI 29.0-29.9,adult: Status: Acute Comment: SW- 211 02/14; current 197 lbs Initial goal- s/p 5% weight reduction within 3 months of nutritional and medication intervention recommendations. Additional 5% goal within the next 3 months. initial obesity assessment lab panel reviewed; maintenance labs reviewed 04/2024; reviewed and stable. (6) Obesity, unspecified: Status: Acute Comment: Nutrition plan: Balanced calorie restricted nutritional plan 1200 dulce. but no less than 1000. Currently at 1776. Discussed calorie deficit; (has not been able to track much) Myfitnesspal- continue to track as able; protein Approx 95g protein maintain; carbs 200; limit carbs in the next month. Adding variety to her diet; doing okay with this. . Medication plan: Phentermine full tab. EKG stable. Monitor for side effects. control- vasectomy. Behavior intervention: Continue myfitnesspal; limit caffeine intake in morning until after breakfast. Sleep: routine; make so this is consistent in timing- doing well with this. Exercise plan: Getting steps around the farm; Add in small weights when able; Getting about 7,000 steps in a day. NEAT activity. (7) Pelvic pain: Status: Acute Comment: resolved as of today Plan: Ultrasound ordered; symptoms associated with possible ovarian rupture. Ensure stability. 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 Required: No Is patient in pain?: No Allergies No Known Allergies Allergy (Verified 09/18/24 08:34) Medications ???Medication ???Instructions ???Recorded ???Confirmed ???Type levocetirizine 5 mg tablet (Xyzal) 5 mg PO DAILY 09/09/21 09/18/24 History multivitamin 1 tab PO DAILY 09/09/21 09/18/24 H istory triamcinolone acetonide 55 mcg 2 spray intranasal QDAY 06/27/24 0 09/18/24 History nasal spray aerosol (Nasacort) phentermine 37.5 mg tablet 37.5 mg PO QDAY #30 tabs 09/18/24 09/18/24 Rx (Adipex-P) Last Menstrual Period: 12/14/23 Zika: Zika virus screening: Negative : No Have you fallen in the past year?: No PFSH PFSH Medical History Normal hemoglobin A1c level ASCUS with positive high risk HPV SERA I (cervical intraepithelial neoplasia I) Surgical History S/P S/P wisdom tooth extraction S/P cholecystectomy Family History Mother Hypertension Kidney disease CLL (chronic lymphocytic leukemia) Melanoma Father Hyperlipidemia Grandfather Myocardial infarction Grandmother Dementia Other Colon cancer Social History Smoking Status: Former smoker alcohol intake: current details: occasionally substance use type: does not use caffeine: Yes what type of physical activity do you participate in: walking and weight training frequency: 3-4 times per week seatbelt use: always do you feel safe at home: Yes additional social history: - Rufino History 3 Elective abortions Hx Para 2 Spontaneous abortions Hx # Term Pregnancies Ectopic pregnancies Hx # Pregnancies Multiple births # of living children Past Pregnancies Del. Date Name GA/Weeks Outcome Route Bth Weight Gen Labor Lgth Anesthesia Del Locatn Provider FOB Unknown Sergey Unknown Cruz HPI 8 wk f/u Details: STEFANI SANTOS is a 39 year old Female presenting for a weight management follow up; she has had a hard time keep track (more content not included)... Normal [facility] Office Visit Reporton 2024 Office Visit Report [facility] [address] [place] [address] OFFICE VISIT Date of Service: 08/23/24 MR#: [id number] Acct: [id number] Patient: STEFANI SANTOS Rep #: [id number] : 1985 Provider: AALIYAH Roberts Age/Sex: 39/F Location: [facility] [place] [place] Status: Signed Intake Vital Signs 07/26/24 08:15 08/23/24 08:31 Height 5 ft 8 in 5 ft 8 in Weight: 198 lb 195 lb BMI 30.1 29.6 BP 132/82 H 137/85 H Pulse 90 80 Intake Visit Reasons: 4 wk FU Chief Complaint: BP/HR/Weight check Tomb Maker Helper Required: No Is patient in pain?: No Allergies No Known Allergies Allergy (Verified 08/23/24 08:30) Medications ???Medication ???Instructions ???Recorded ???Confirmed ???Type levocetirizine 5 mg tablet (Xyzal) 5 mg PO DAILY 09/09/21 08/23/24 History multivitamin 1 tab PO DAILY 09/09/21 08/23/24 H istory triamcinolone acetonide 55 mcg 2 spray intranasal QDAY 06/27/24 0 08/23/24 History nasal spray aerosol (Nasacort) phentermine 37.5 mg tablet 37.5 mg PO QDAY #30 tabs 07/26/24 08/23/24 Rx (Adipex-P) Post menopausal: No Patient : No Have you fallen in the past year?: No Nurse's Note: Patient came into office for HR/BP/Weight check. She has continued to decrease her weight. She is not sure if she needs refill on Adipex. She will go home and look at pill bottle and will send portal message if she does. Questionnaires Weight Management Follow-Up What nutritional plan/diet are you following?: Low carb How are you tracking your food intake?: MyFitnessPal On average, how many days a week are you recording your food intake?: 3 How many days a week are you staying within your recommended intake goals?: 3 What is your current weekly exercise?: Weights/kettlebell On a scale of 1-10, how difficult is it to follow your current weight management plan?: 3 What are you struggling most with right now in following your weight loss plan?: Seeing a difference in appearance Are there any changes we need to make to your current plan right now?: No Side Effects: No Chest Pain, No Palpitations, No Increased Heart Rate, No Irregular Heart Rhythm, No Increased Blood Pressure, No Change in breathing patterns, No Kidney Stones, No Change in vision, No Insomnia, No Difficulty with memory/speech, No Numbness in hands/feet, No New onset severe fatigue, No Nausea/vomiting, No Constipation and No Depressed mood Are there any side effects interfering with quality of life enough you would want to stop medication?: No What's improved for you since losing weight and making your lifestyle change?: Overall energy is still increasing Is there anything else we can help you with on your weight loss journey today?: No 08/23/24 1102 Date Taylor Costa Signature: Date (if applicable) CC: Normal [facility] Senior Analytical Chemist Office Visit Reporton 07-26-2024 Senior Analytical Chemist Office Visit Report [facility], [facility] [address] [place] [address] OFFICE VISIT Date of Service: 07/26/24 MR#: [id number] Acct: [id number] Name: TOMSTEFANI DE LEON Rep #: [id number] : 1985 Provider: AALIYAH Roberts Age/Sex: 39/F Location: [facility] [place], [place] Status: Signed Intake Vital Signs 05/31/24 10:52 05/31/24 11:27 07/26/24 08:13 07/26/24 08:15 Height 5 ft 8 in 5 ft 8 in 5 ft 8 in 5 ft 8 in Weight: 196 lb 199 lb 6 oz 198 lb BMI 29.7 30.3 30.1 BP 137/85 H 128/87 H 132/82 H Pulse 97 77 90 Pulse Source Monitor Intake Visit Reasons: 8wk check 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 Maker Helper Required: No Is patient in pain?: No Allergies No Known Allergies Allergy (Verified 07/26/24 08:12) Medications ???Medication ???Instructions ???Recorded ???Confirmed ???Type levocetirizine 5 mg tablet (Xyzal) 5 mg PO DAILY 09/09/21 07/26/24 History multivitamin 1 tab PO DAILY 09/09/21 07/26/24 H istory triamcinolone acetonide 55 mcg 2 spray intranasal QDAY 06/27/24 0 07/26/24 History nasal spray aerosol (Nasacort) phentermine 37.5 mg tablet 37.5 mg PO QDAY #30 tabs 07/26/24 07/26/24 Rx (Adipex-P) Last Menstrual Period: 12/14/23 PFSH PFSH Medical History Normal hemoglobin A1c level ASCUS with positive high risk HPV SERA I (cervical intraepithelial neoplasia I) Surgical History S/P S/P wisdom tooth extraction S/P cholecystectomy Family History Mother Hypertension Kidney disease CLL (chronic lymphocytic leukemia) Melanoma Father Hyperlipidemia Grandfather Myocardial infarction Grandmother Dementia Other Colon cancer Social History Smoking Status: Former smoker alcohol intake: current details: occasionally substance use type: does not use caffeine: Yes what type of physical activity do you participate in: walking and weight training frequency: 3-4 times per week seatbelt use: always do you feel safe at home: Yes additional social history: - Rufino History 3 Elective abortions Hx Para 2 Spontaneous abortions Hx # Term Pregnancies Ectopic pregnancies Hx # Pregnancies Multiple births # of living children Past Pregnancies Del. Date Name GA/Weeks Outcome Route Bth Weight Infant Gen Labor Lgth Anesthesia Del Locatn Provider FOB Unknown Sergey Unknown Cruz HPI 8wk check Details: STEFANI SANTOS is a 39 year old Female presenting for a weight management follow up; she has been focusing on resistance training the past 8 weeks. She reports she is also going to do some measurements. She has been keeping mindful tracking of her nutrition. 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 Taking phentermine 1/2 tab--occasionally takes a full tab. She is doing well with this. Denies side effects and feeling well. Female Reproductive History Last Menstrual Period: 12/14/23 ROS Const Reports as per HPI, Denies difficulty sleeping, Denies excessive sweating, Denies fatigue and Denies fever(s) Eyes Denies change in vision and Denies diplopia ENT Denies dizziness Card Denies chest pain, Denies dyspnea, Denies dyspnea on exertion and Denies palpitations Resp Denies chest congestion, Denies cough, Denies dyspnea and Denies dyspnea on exertion GI Reports as per HPI, Denies abdominal pain and Denies constipation Musc Denies numbness Neuro No confusion, No dizziness, No memory loss and No numbness Psych Denies confusion, Denies depression, Denies memory loss, Denies mood swings and Denies suicidal ideation Endo Denies excessive sweating, Denies fatigue, Denies palpitations and Reports other (denies symptoms of hypoglycemia) Exam Const General: cooperative, healthy appearing, comfortable and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 Fasting Glucose resu lt from 100 to 125 mg/dL suggests IMPAIRED HOMEOSTASIS per A.D.A. criteria. Hematocrit Auto (Bld) [Volum e fraction]Ordered By: Taylor Fagan on 05-02-2024 Hematocrit (Bld) [Volume fraction] 41.7 % 37-47 [facility] Hemoglobin measurementOrdere d By: Taylor Fagan on 05-02-2024 Hemoglobin (Bld) [Mass/Vol] 13.4 g/dL 12.0-15.0 [facility] High density lipoprotein (HD L) measurementOrdered By: Taylor Fagan on 05-02-2024 Cholesterol in HDL [Mass/Vol] 53 mg/dL >40 [facility] Comment on above: The drugs N-Acetylcy steine and Metamizole may falsely depress this assay. Reference Range HDL <40 mg/dL Low HDL Cholesterol HDL >or= 60 mg/dL High HDL Cholesterol Immature granulocytes/100 WB C Auto (Bld)Ordered By: Taylro Fagan on 05-02-2024 Immature granulocytes/100 WBC (Bld) 0.000 % 0.0-0.9 [facility] Comment on above: IG% - Immature Granu locytes (promyelocytes, myelocytes and metamyelocytes) > 1% indicates that a LEFT SHIFT is Present. Laboratory - Chemistry and C hemistry - challengeOrdered By: Taylor Fagan on 05-02-2024 AST [Catalytic activity/Vol] 12 U/L Low 15-37 [facility] Lipid Profileon 05-02-2024 Cholesterol [Mass/Vol] 204 mg/dL High 200 [facility] Comment on above: Result Comment: <200 mg/dL Desirable 200-240 mg/dL Borderline >240 mg/dL High Risk Performed By: #### L 506.1000, L100.0100, L500.4100, L500.4050 ####[facility] [address] [place], [address] Cholesterol in HDL [Mass/Vol] 53 mg/dL Normal [facility] Comment on above: Result Comment: The drugs N-Acetylcysteine and Metamizole may falsely depress this assay. Reference Range HDL <40 mg/dL Low HDL Cholesterol HDL >or= 60 mg/dL High HDL Cholesterol Performed By: #### L 506.1000, L100.0100, L500.4100, L500.4050 ####[facility] [address] [place], [address] Cholesterol in LDL [Mass/Vol] 126 mg/dL Normal 0-130 [facility] Comment on above: Performed By: #### L 506.1000, L100.0100, L500.4100, L500.4050 ####[facility] [address] [place], [address] Cholesterol in VLDL [Mass/Vol] 25 mg/dL Normal 5-40 [facility] Comment on above: Performed By: #### L 506.1000, L100.0100, L500.4100, L500.4050 ####[facility] [address] [place], [address] Triglyceride [Mass/Vol] 127 mg/dL Normal [facility] Comment on above: Result Comment: The drugs N-Acetylcysteine and Metamizole may falsely depress this assay. Serum Triglycerides Reference Interval Normal <150 mg/dL Borderline high 150 - 199 mg/dL High 200 - 499 mg/dL Very High > or = 500 mg/dL Performed By: #### L 506.1000, L100.0100, L500.4100, L500.4050 ####[facility] [address] [place], [address] Low density lipoprotein (LDL ) cholesterol measurementOrdered By: Taylor Fagan on 05-02-2024 Cholesterol in LDL [Mass/Vol] 126 mg/dL 0-130 [facility] Lymphocytes Auto (Unsp spec) [#/Vol]Ordered By: Taylor Fagan on 05-02-2024 Lymphocytes (Bld) [#/Vol] 1.18 10*3/uL 0.83-4.51 [facility] Lymphocytes/100 WBC Auto (Un sp spec)Ordered By: Talyor Fagan on 05-02-2024 Lymphocytes/100 WBC (Bld) 31.0 % 19-41 [facility] MCV (mean corpuscular volume ) determinationOrdered By: Taylor Fagan on 05-02-2024 MCV (RBC) [Entitic vol] 90.1 fL 81-99 [facility] Mean corpuscular hemoglobin (MCH) determinationOrdered By: Taylor Fagan on 05-02-2024 MCH (RBC) [Entitic mass] 28.9 pg 27.0-32.0 [facility] Mean corpuscular hemoglobin concentration (MCHC) determinationOrdered By: Taylor Fagan on 05-02-2024 MCHC (RBC) [Mass/Vol] 32.1 g/dL 32-36 [facility] Mean platelet volume determi nationOrdered By: Taylor Fagan on 05-02-2024 Platelet mean volume (Bld) [Entitic vol] 10.4 fL 6.2-12.0 [facility] Monocyte percentageOrdered B y: Taylor Fagan on 05-02-2024 Monocytes/100 WBC (Bld) 6.0 % 0-10 [facility] Neutrophil percentageOrdered By: Taylor Fagan on 05-02-2024 Neutrophils/100 WBC (Bld) 60.7 % 47-70 [facility] Nucleated red blood cell per centageOrdered By: Taylor Fagan on 05-02-2024 Nucleated RBC/100 WBC (Bld) [Ratio] 0 % 0-5 [facility] Platelet countOrdered By: Kat Fagan on 05-02-2024 Platelets (Bld) [#/Vol] 212 10*3/uL 150-450 [facility] Potassium measurementOrdered By: Taylor Fagan on 05-02-2024 Potassium [Moles/Vol] 3.9 mmol/L 3.5-5.1 [facility] RBC Auto (Bld) [#/Vol]Ordere d By: Taylor Fagan on 05-02-2024 RBC (Bld) [#/Vol] 4.63 10*6/uL 4.2-5.4 [facility] Serum anion gap measurementO rdered By: Taylor Fagan on 05-02-2024 Anion gap [Moles/Vol] 3 mmol/L Low 5-15 [facility] Serum globulin measurementOr dered By: Taylor Fagan on 05-02-2024 Globulin (S) [Mass/Vol] 3.5 g/dL 2.2-4.2 [facility] Serum or plasma alanine forbes otransferase (ALT) measurementOrdered By: Taylor Fagan on 05-02-2024 ALT [Catalytic activity/Vol] 19 U/L 13-56 [facility] Serum or plasma albumin georgina urement (mass/volume)Ordered By: Taylor Fagan on 05-02-2024 Albumin [Mass/Vol] 3.9 g/dL 3.2-5.0 [facility] Serum or plasma alkaline kun sphatase measurementOrdered By: Taylor Fagan on 05-02-2024 ALP [Catalytic activity/Vol] 55 U/L 45-117 [facility] Serum or plasma calcium georgina urement (mass/volume)Ordered By: Taylor Fagan on 05-02-2024 Calcium [Mass/Vol] 9.0 mg/dL 8.5-10.1 [facility] Serum or plasma cholesterol measurement (mass/volume)Ordered By: Taylor Fagan on 05-02-2024 Cholesterol [Mass/Vol] 204 mg/dL High <200 [facility] Comment on above: <200 mg/dL Desirable 200-240 mg/dL Borderline >240 mg/dL High Risk Serum or plasma creatinine m easurement (mass/volume)Ordered By: Taylor Fagan on 05-02-2024 Creatinine [Mass/Vol] 0.73 mg/dL 0.55-1.02 [facility] Comment on above: The validity of the calculated GFR & GFRAA in patients over 70 years has not been determined. Clinical correlation is essential. Serum or plasma urea nitroge n measurement (mass/volume)Ordered By: Taylor Fagan on 05-02-2024 Urea nitrogen [Mass/Vol] 14 mg/dL 7-18 [facility] Sodium levelOrdered By: Lynda Fagan on 05-02-2024 Sodium [Moles/Vol] 138 mmol/L 136-145 [facility] Total proteinOrdered By: Shaheen Fagan on 05-02-2024 Protein [Mass/Vol] 7.4 g/dL 6.4-8.2 [facility] Triglycerides measurementOrd ered By: Taylor Fagan on 05-02-2024 Triglyceride [Mass/Vol] 127 mg/dL <199 [facility] Comment on above: The drugs N-Acetylcy steine and Metamizole may falsely depress this assay.Serum Triglycerides Reference Interval Normal <150 mg/dL Borderline high 150 - 199 mg/dL High 200 - 499 mg/dL Very High > or = 500 mg/dL Very low density lipoprotein (VLDL) cholesterol measurementOrdered By: Taylor Fagan on 05-02-2024 Very low density lipoprotein (VLDL) cholesterol measurement 25 mg/dL 5-40 [facility] VLDL Cholesterol 25 mg/dL -40 [facility] White blood cell (WBC) count Ordered By: Taylor Fagan on 05-02-2024 WBC (Bld) [#/Vol] 3.8 10*3/uL Low 4.4-11.0 [facility] Senior Analytical Chemist Office Visit Reporton 05-01-2024 Senior Analytical Chemist Office Visit Report [facility]'[address], [address] [place] [address] OFFICE VISIT Date of Service: 05/01/24 MR#: [id number] Acct: [id number] Name: STEFANI SANTOS Rep #: [id number] : 1985 Provider: AALIYAH Roberts Age/Sex: 39/F Location: [facility] [place], [place] Status: Signed Intake Vital Signs 03/29/24 10:41 05/01/24 10:38 05/01/24 10:43 Height 5 ft 8 in 5 ft 8 in 5 ft 8 in Weight: 201 lb 4 oz BMI 30.6 BP 115/81 H 133/87 H 129/84 H Pulse 90 118 H 94 Intake Visit Reasons: 1 M FU Tomb Maker Helper Required: No Is patient in pain?: No Allergies No Known Allergies Allergy (Verified 05/01/24 10:38) Medications ???Medication ???Instructions ???Recorded ???Confirmed ???Type levocetirizine 5 mg tablet (Xyzal) 5 mg PO DAILY 09/09/21 05/01/24 History multivitamin 1 tab PO DAILY 09/09/21 05/01/24 H istory albuterol sulfate 90 mcg/actuation inhalation 03/05/24 05/01/24 His tory aerosol inhaler guaifenesin 600 mg tablet, 600 mg PO BID 03/05/24 05/01/24 Hi story extended release 12 hr (Mucinex) phentermine 37.5 mg tablet 18.75 mg (1/2 x 37.5 mg) PO QDAY 0 05/01/24 05/01/24 Rx (Adipex-P) #16 tabs Last Menstrual Period: 12/14/23 Zika: Zika virus screening: Negative Have you fallen in the past year?: No PFSH PFSH Medical History Normal hemoglobin A1c level ASCUS with positive high risk HPV SERA I (cervical intraepithelial neoplasia I) Surgical History S/P S/P wisdom tooth extraction S/P cholecystectomy Family History Mother Hypertension Kidney disease CLL (chronic lymphocytic leukemia) Melanoma Father Hyperlipidemia Grandfather Myocardial infarction Grandmother Dementia Other Colon cancer Social History Smoking Status: Former smoker alcohol intake: current details: occasionally substance use type: does not use caffeine: Yes what type of physical activity do you participate in: walking and weight training frequency: 3-4 times per week seatbelt use: always do you feel safe at home: Yes additional social history: - Rufino History 3 Elective abortions Hx Para 2 Spontaneous abortions Hx # Term Pregnancies Ectopic pregnancies Hx # Pregnancies Multiple births # of living children Past Pregnancies Del. Date Name GA/Weeks Outcome Route Bth Weight Infant Gen Labor Lgth Anesthesia Del [facility] Provider FOB Unknown Sergey Unknown Cruz HPI 1 M FU Details: STEFANI SANTOS is a 39 year old Female presenting for a weight management follow up. She is discouraged today as she feels she is making good nutrition changes/choices; engaging in the recommended exercise; and following good sleep/behavior modifications--yet--h er weight is climbing. She is taking 1/2 tab phent. compliantly. No side effects associated with this but she is feeling down due to weight gain. Female Reproductive History Last Menstrual Period: 12/14/23 ROS Const Reports as per HPI, Denies difficulty sleeping, Denies excessive sweating, Denies fatigue and Denies fever(s) Eyes Denies change in vision and Denies diplopia ENT Denies dizziness Card Denies chest pain, Denies dyspnea, Denies dyspnea on exertion and Denies palpitations Resp Denies chest congestion, Reports cough (post viral), Denies dyspnea and Denies dyspnea on exertion GI Reports as per HPI, Denies abdominal pain and Denies constipation Musc Denies numbness Neuro No confusion, No dizziness, No memory loss and No numbness Psych Denies confusion, Denies depression, Denies memory loss, Denies mood swings and Denies suicidal ideation Endo Denies excessive sweating, Denies fatigue, Denies palpitations and Reports other (denies symptoms of hypoglycemia) Exam Const General: cooperative, healthy appearing, comfortable and no acute distress Orientation: alert [facility] Head: normal to inspection and normocephalic Ears: hearing grossly normal bilaterally and external ears normal Nose: external nose normal Face and sinus: normal facial exam Eyes General: appearance normal, both eyes and all related structures Resp Effort Inspection: normal respiratory effort Auscultation: clear to auscultation bilaterally Cardio Rate: regular rate Rhythm: regular rhythm Heart Sounds: S1 normal and S2 normal GI Inspection: normal to inspection and non-distended Palpation: soft, no hepatosplenomegaly and no guarding Musc Other: gross motor intact no deficits, full bilateral strength Skin General: no rashes or lesions noted Neuro General: patient alert, moves all extremit (more content not included)... Normal [facility] Senior Analytical Chemist Office Visit Reporton 03-29-2024 Senior Analytical Chemist Office Visit Report [facility]'[address], [address] [place] [address] OFFICE VISIT Date of Service: 03/29/24 MR#: [id number] Acct: [id number] Name: STEFANI SANTOS Rep #: [id number] : 1985 Provider: AALIYAH Roberts Age/Sex: 38/F Location: [facility] [place], [place] Status: Signed Intake Vital Signs 03/05/24 11:40 03/29/24 10:34 03/29/24 10:41 Height 5 ft 8 in 5 ft 8 in 5 ft 8 in Weight: 192 lb 196 lb BMI 29.2 29.7 BP 132/84 H 140/83 H 115/81 H Position Sitting Pulse 117 H 105 H 90 Temp 98.1 F Pulse Oximetry (%) 98 Oxygen Delivery Method room air Intake Visit Reasons: WEIGHT MANAGEMENT CHECK Tomb Maker Helper Required: No Is patient in pain?: No Allergies No Known Allergies Allergy (Verified 03/29/24 10:34) Medications ???Medication ???Instructions ???Recorded ???Confirmed ???Type levocetirizine 5 mg tablet (Xyzal) 5 mg PO DAILY 09/09/21 03/29/24 History multivitamin 1 tab PO DAILY 09/09/21 03/29/24 History albuterol sulfate 90 mcg/actuation inhalation 03/05/24 03/29/24 History aerosol inhaler guaifenesin 600 mg tablet, 600 mg PO BID 03/05/24 03/29/24 History extended release 12 hr (Mucinex) phentermine 37.5 mg tablet 18.75 mg (1/2 x 37.5 mg) PO QDAY 03/29/24 03/29/24 Rx (Adipex-P) #16 tabs Last Menstrual Period: 12/14/23 [facility] PFS Medical History Normal hemoglobin A1c level ASCUS with positive high risk HPV SERA I (cervical intraepithelial neoplasia I) Surgical History S/P S/P wisdom tooth extraction S/P cholecystectomy Family History Mother Hypertension Kidney disease CLL (chronic lymphocytic leukemia) Melanoma Father Hyperlipidemia Grandfather Myocardial infarction Grandmother Dementia Other Colon cancer Social History Smoking Status: Former smoker alcohol intake: current details: occasionally substance use type: does not use caffeine: Yes what type of physical activity do you participate in: walking and weight training frequency: 3-4 times per week seatbelt use: always do you feel safe at home: Yes additional social history: - Rufino History 3 Elective abortions Hx Para 2 Spontaneous abortions Hx # Term Pregnancies Ectopic pregnancies Hx # Pregnancies Multiple births # of living children Past Pregnancies Del. Date Name GA/Weeks Outcome Route Bth Weight Gen Labor Lgth Anesthesia Del Locatn Provider FOB Unknown Sergey Unknown Cruz HPI WEIGHT MANAGEMENT CHECK Details: STEFANI SANTOS is a 38 year old Female presenting for a weight management overall feeling better from an illness standpoint. She is now currently on treatment for an infection from a bite (bactr im). She reports she has restarted taking the phentermine this past week and has finally been able to restart focusing on tracking her nutrition as well as slowly getting back into exercise as she can tolerate. Female Reproductive History Last Menstrual Period: 12/14/23 ROS Const Reports as per HPI, Denies difficulty sleeping, Denies excessive sweating, Denies fatigue and Denies fever(s) Eyes Denies change in vision and Denies diplopia ENT Denies dizziness Card Denies chest pain, Denies dyspnea, Denies dyspnea on exertion and Denies palpitations Resp Denies chest congestion, Reports cough (post viral), Denies dyspnea and Denies dyspnea on exertion GI Reports as per HPI, Denies abdominal pain and Denies constipation Musc Denies numbness Neuro No confusion, No dizziness, No memory loss and No numbness Psych Denies confusion, Denies depression, Denies memory loss, Denies mood swings and Denies suicidal ideation Endo Denies excessive sweating, Denies fatigue, Denies palpitations and Reports other (denies symptoms of hypoglycemia) Exam Const General: cooperative, healthy appearing, comfortable and no acute distress Orientation: alert [facility] Head: normal to inspection and normocephalic Ears: hearing grossly normal bilaterally and external ears normal Nose: external nose normal Face and sinus: normal facial exam Eyes General: appearance normal, both eyes and all related structures Resp Effort Inspection: normal respiratory effort Auscultation: clear to auscultation bilaterally Cardio Rate: regular rate Rhythm: regular rhythm Heart Sounds: S1 normal and S2 normal GI Inspection: normal to inspection and non-distended Palpation: soft, no hepatosplenomegaly and no guarding Musc Other: gross motor intact no deficits, full bilateral strength Skin General: no rashes or lesions noted Ne (more content not included)... Normal [facility] Chest PA and Lateralon 03-05 Chest PA and Lateral [facility] [address] [place], [place] [id number] Chest PA and Lateral MR#: [id number] Acct: [id number] Name: STEFANI SANTOS Rep #: [id number] : 1985 F 38 From: Babita simpson MD PCP: Dr. Marlon Shepherd, DO Status: REG CLI Study: Chest PA and Lateral Date of Exam: 03/05/24 Exam# [id number] Ordering Dr: Brannon Pacheco [id number] HISTORY: sick. TECHNIQUE: XR Chest 2 Views. COMPARISON: 03/09/2016. FINDINGS: CARDIOMEDIASTINAL BORDERS: Cardiac silhouette within normal limits in size. Mediastinal contour unremarkable. LUNGS: Radiographically clear. PLEURA: No pleural effusion or pneumothorax seen. OSSEOUS STRUCTURES: Unremarkable. RAD/Chest PA and Lateral IMPRESSION: No acute cardiopulmonary process identified. Electronically Signed: Babita Mistry MD at 12:45 EST , CC: Dr. Marlon Shepherd DO; ARCELIA Navarrete Hand Coper: Signed Normal [facility] Senior Analytical Chemist Office Visit Reporton 03-05-2024 Senior Analytical Chemist Office Visit Report [facility]'s [address], [address] [place] [address] OFFICE VISIT Date of Service: 03/05/24 MR#: [id number] Acct: [id number] Name: STEFANI SANTOS Rep #: [id number] : 1985 Provider: AALIYAH Roberts Age/Sex: 38/F Location: [facility] [place], [place] Status: Signed Intake Vital Signs 02/07/24 08:30 03/05/24 10:00 03/05/24 10:06 Height 5 ft 8 in 5 ft 8 in 5 ft 8 in Weight: 192 lb 8 oz 192 lb 6 oz BMI 29.2 29.2 BP 132/81 H 143/90 H Pulse 93 102 H Intake Visit Reasons: 4 wk med check Chief Complaint: med check Tomb Maker Helper Required: No Is patient in pain?: No Allergies No Known Allergies Allergy (Verified 03/05/24 10:00) Medications ???Medication ???Instructions ???Recorded ???Confirmed ???Type biotin 5 mg capsule 5 mg PO DAILY 09/09/21 03/05/24 History calcium 600 mg (as cap PO 09/09/21 03/05/24 History carbonate)-vitamin D3 12.5 mcg (500 unit) capsule (Calcium with Vit D3) levocetirizine 5 mg tablet (Xyzal) 5 mg PO DAILY 09/09/21 03/05/24 History multivitamin 1 tab PO DAILY 09/09/21 03/05/24 History triamcinolone acetonide 55 mcg 2 spray intranasal DAILY 09/09/21 03/05/24 History nasal spray aerosol (Nasacort) phentermine 37.5 mg tablet 37.5 mg PO QDAY #30 tabs 02/08/24 03/05/24 Rx (Adipex-P) Last Menstrual Period: 12/14/23 Zika: Zika virus screening: Negative : No Have you fallen in the past year?: No PFSH PFSH Medical History Normal hemoglobin A1c level ASCUS with positive high risk HPV SERA I (cervical intraepithelial neoplasia I) Surgical History S/P S/P wisdom tooth extraction S/P cholecystectomy Family History Mother Hypertension Kidney disease CLL (chronic lymphocytic leukemia) Melanoma Father Hyperlipidemia Grandfather Myocardial infarction Grandmother Dementia Other Colon cancer Social History Smoking Status: Former smoker alcohol intake: current details: occasionally substance use type: does not use caffeine: Yes what type of physical activity do you participate in: walking and weight training frequency: 3-4 times per week seatbelt use: always do you feel safe at home: Yes additional social history: - Rufino History 3 Elective abortions Hx Para 2 Spontaneous abortions Hx # Term Pregnancies Ectopic pregnancies Hx # Pregnancies Multiple births # of living children Past Pregnancies Del. Date Name GA/Weeks Outcome Route Bth Weight Gen Labor Lgth Anesthesia Del Locatn Provider FOB Unknown Sergey Unknown Cruz HPI 4 wk med check Details: STEFANI SANTOS is a 38 year old Female presenting for a weight management follow up. She has been unable to follow nutritional plan due to being ill. She has also been sporadic in taking her medication due to illness. Was seen in urgent care for cough, congestion approx 2 weeks ago and given doxycycline and inhaler. Finished last dose yesterday. Continues with cough today. She was also given prednisone and inhaler. Female Reproductive History Last Menstrual Period: 12/14/23 ROS Const Reports as per HPI, Denies difficulty sleeping, Denies excessive sweating, Reports fatigue (illness) and Denies fever(s) Eyes Denies change in vision and Denies diplopia ENT Denies dizziness Card Denies chest pain, Denies dyspnea, Denies dyspnea on exertion, Denies palpitations and Reports rapid heart rate (since being ill; on steroids) Resp Reports chest congestion, Reports cough, Denies dyspnea and Denies dyspnea on exertion GI Reports as per HPI, Denies abdominal pain and Denies constipation Musc Denies numbness Neuro No confusion, No dizziness, No memory loss and No numbness Psych Denies confusion, Denies depression, Denies memory loss, Denies mood swings and Denies suicidal ideation Endo Denies excessive sweating, Reports fatigue (illness), Denies palpitations and Reports other (denies symptoms of hypoglycemia) Exam Const General: cooperative, comfortable, no acute distress and ill appearing Orientation: alert and awake HENMT Head: normal to inspection and normocephalic Ears: hearing grossly normal bilaterally and external ears normal Nose: external nose normal Face and sinus: normal facial exam Eyes General: appearance normal, both eyes and all related structures Resp Effort Inspection: normal respiratory effort, able to speak in complete sentences, symmetric chest movement and cough Auscultation: clear to auscultation bilaterally Cardio Rate: regular rate and tachycardic Rhythm: regu (more content not included)... Normal [facility] Urgent Care Visit Reporton 1 05-06-2023 Urgent Care Visit Report [facility] [address], [address] [place] [address] OFFICE VISIT Date of Service: 03/05/24 MR#: [id number] Acct: [id number] Name: STEFANI SANTOS Rep #: [id number] : 1985 Provider: ARCELIA Navarrete Age/Sex: 38/F Location: [facility] Status: Signed Intake Vital Signs 03/05/24 10:06 03/05/24 11:40 Height 5 ft 8 in 5 ft 8 in Weight: 192 lb BMI 29.2 BP 132/84 H Position Sitting Pulse 117 H Temp 98.1 F Temp Source Oral Pulse Oximetry (%) 98 Oxygen Delivery Method room air Intake Visit Reasons: COUGH/CHEST LAMBERTO Allergies No Known Allergies Allergy (Verified 03/05/24 11:40) Medications ???Medication ???Instructions ???Recorded ???Confirmed ???Type levocetirizine 5 mg tablet (Xyzal) 5 mg PO DAILY 09/09/21 03/05/24 History multivitamin 1 tab PO DAILY 09/09/21 03/05/24 History albuterol sulfate 90 mcg/actuation inhalation 03/05/24 03/05/24 History aerosol inhaler azithromycin 250 mg tablet 250 mg PO .COMPLEX #12 tabs 03/05/24 03/05/24 Rx benzonatate 200 mg capsule 200 mg PO TID PRN cough #20 caps 03/05/24 03/05/24 Rx guaifenesin 600 mg tablet, 600 mg PO BID 03/05/24 03/05/24 History extended release 12 hr (Mucinex) Nurse's Note: Patient has cough, chest congestion. Patient was DX with Pneumonia 11 days ago and was placed on a AB. Patient took all her AB but still has this cough. [facility] Medical History Normal hemoglobin A1c level ASCUS with positive high risk HPV SERA I (cervical intraepithelial neoplasia I) Surgical History S/P S/P wisdom tooth extraction S/P cholecystectomy Family History Mother Hypertension Kidney disease CLL (chronic lymphocytic leukemia) Melanoma Father Hyperlipidemia Grandfather Myocardial infarction Grandmother Dementia Other Colon cancer Social History Smoking Status: Former smoker alcohol intake: current details: occasionally substance use type: does not use caffeine: Yes what type of physical activity do you participate in: walking and weight training frequency: 3-4 times per week seatbelt use: always do you feel safe at home: Yes additional social history: - Rufino HPI HPI Details: STEFANI SANTOS, is a 38 F who presents to the office today for [facility] evaluation at the [facility] for approximately 2-1/2-week history of progressively worsening right facial pressure/congestion with purulent postnasal drip/cough. No complaints of fever, chills, myalgias, fatigue, runny nose, or nausea/vomiting/diarr hea. No complaints of chest pain/shortness of breath/dyspnea on exertion. Previously treated and at another urgent care 11 days ago with doxycycline noticing some improvement though symptoms progressively started worsening once again about 4 5 days ago. Non-smoker. Declining all POC screening. No close contacts with similar complaints. No other associated symptoms and no other alleviating/aggravati ng factors. ROS Const Constitutional: No other (as above) Exam Const General: cooperative, healthy appearing and no acute distress Nutritional Appearance: average body habitus Orientation: alert, awake and oriented x3 HENMT Head: normal to inspection Ears: hearing grossly normal bilaterally, external ears normal, TM's normal bilaterally and EAC's normal Nose: external nose normal, nares normal, septum normal and no nasal discharge Face and sinus: normal facial exam, sinuses nontender (Though right maxillary fullness to palpation) and face symmetric Mouth: oral mucosae normal, lip normal, tongue normal and oropharynx normal Throat: posterior oropharynx normal, tonsils normal, uvula midline and postnasal drainage (Purulent) Eyes General: appearance normal, both eyes and all related structures Neck Neck: normal visual inspection, full ROM, no meningeal signs, supple and lymphadenopathy (Bilateral anterior cervical lymph node swelling/tender to palpation) Neck mass: No Thyroid: thyroid normal Chest Chest palpation inspection: normal inspection of the chest Resp Effort Inspection: normal respiratory effort and able to speak in complete sentences Auscultation: Bilateral: Clear to Auscultation Cardio Palpation: normal PMI Rate: regular rate Rhythm: regular rhythm Heart Sounds: S1 normal, S2 normal, no gallops, no murmurs and no rubs Pulses: radial pulses present GI Inspection: normal to inspection Skin General: no rashes or lesions noted Neuro General: patient alert, patient awake and patient oriented x3 Cognition: normal cognition Speech: speech normal Psych Appearance: grossly normal Men (more content not included)... Normal [facility] Office Visit Reporton 2023 Office Visit Report [facility] [address] [place] [address] OFFICE VISIT Date of Service: 02/07/24 MR#: [id number] Acct: [id number] Patient: STEFANI SANTOS Rep #: [id number] : 1985 Provider: AALIYAH Roberts Age/Sex: 38/F Location: [facility] [place] [place] Status: Signed Intake Vital Signs 01/11/24 08:22 02/07/24 08:30 Height 5 ft 8 in 5 ft 8 in Weight: 192 lb 8 oz BMI 29.2 BP 132/81 H Pulse 93 Intake Visit Reasons: 4 WK MED CHECK Chief Complaint: Weight/BP/HR check Tomb Maker Helper Required: No Is patient in pain?: No Allergies No Known Allergies Allergy (Verified 02/07/24 08:29) Medications ???Medication ???Instructions ???Recorded ???Confirmed ???Type biotin 5 mg capsule 5 mg PO DAILY 09/09/21 02/07/24 History calcium 600 mg (as cap PO 09/09/21 02/07/24 History carbonate)-vitamin D3 12.5 mcg (500 unit) capsule (Calcium with Vit D3) levocetirizine 5 mg tablet (Xyzal) 5 mg PO DAILY 09/09/21 02/07/24 History multivitamin 1 tab PO DAILY 09/09/21 02/07/24 History triamcinolone acetonide 55 mcg 2 spray intranasal DAILY 09/09/21 02/07/24 History nasal spray aerosol (Nasacort) phentermine 37.5 mg tablet 37.5 mg PO QDAY #30 tabs 02/08/24 02/08/24 Rx (Adipex-P) Post menopausal: No Patient : No Have you fallen in the past year?: No Nurse's Note: Patient was here today for weight/BP/HR check. There is not much change in weight loss in the last month and in her questionnaire this is what she said she struggled the most with is actually losing weight. She has been on Adipex for awhile now and a full tablet for several months. I talked to her about changing/adding medication. She states this has been briefly discussed. I did advise checking with her insurance if any other medication is covered with her insurance. She does have upcoming appointment with provider. Questionnaires Weight Management Follow-Up What nutritional plan/diet are you following?: low carb How are you tracking your food intake?: Myfitness pal On average, how many days a week are you recording your food intake?: 3 How many days a week are you staying within your recommended intake goals?: 3 What is your current weekly exercise?: weights and treadmill On a scale of 1-10, how difficult is it to follow your current weight management plan?: 2 What are you struggling most with right now in following your weight loss plan?: losing weight Are there any changes we need to make to your current plan right now?: NA Side Effects: No Chest Pain, No Palpitations, No Increased Heart Rate, No Irregular Heart Rhythm, No Increased Blood Pressure, No Change in breathing patterns, No Kidney Stones, No Change in vision, No Insomnia, No Difficulty with memory/speech, No Numbness in hands/feet, No New onset severe fatigue, No Nausea/vomiting, No Constipation and No Depressed mood Are there any side effects interfering with quality of life enough you would want to stop medication?: No What's improved for you since losing weight and making your lifestyle change?: Energy and ability to play with kids Is there anything else we can help you with on your weight loss journey today?: No 02/08/24 1636 Date Taylor Costa Signature: Date (if applicable) CC: Normal [facility] Senior Analytical Chemist Office Visit Reporton 01-11-2024 Senior Analytical Chemist Office Visit Report [facility] [address], [address] [place] [address] OFFICE VISIT Date of Service: 01/11/24 MR#: [id number] Acct: [id number] Name: STEFANI SANTOS Rep #: [id number] : 1985 Provider: AALIYAH Roberts Age/Sex: 38/F Location: [facility] [place] [place] Status: Signed Intake Vital Signs 11/03/23 13:07 12/14/23 13:13 01/11/24 08:21 01/11/24 08:22 Height 5 ft 8 in 5 ft 8 in 5 ft 8 in 5 ft 8 in Weight: 193 lb 6 oz BMI 29.4 BP 127/78 H Pulse 93 Intake Visit Reasons: 8 wk follow up Chief Complaint: 8 wk med check Tomb Maker Helper Required: No Is patient in pain?: No Allergies No Known Allergies Allergy (Verified 01/11/24 08:22) Medications ???Medication ???Instructions ???Recorded ???Confirmed ???Type biotin 5 mg capsule 5 mg PO DAILY 09/09/21 01/11/24 History calcium 600 mg (as cap PO 09/09/21 01/11/24 History carbonate)-vitamin D3 12.5 mcg (500 unit) capsule (Calcium with Vit D3) levocetirizine 5 mg tablet (Xyzal) 5 mg PO DAILY 09/09/21 01/11/24 History multivitamin 1 tab PO DAILY 09/09/21 01/11/24 History triamcinolone acetonide 55 mcg 2 spray intranasal DAILY 09/09/21 01/11/24 History nasal spray aerosol (Nasacort) phentermine 37.5 mg tablet 37.5 mg PO QDAY #30 tabs 01/11/24 01/11/24 Rx (Adipex-P) Last Menstrual Period: 12/14/23 PFSH PFSH Medical History Normal hemoglobin A1c level ASCUS with positive high risk HPV SERA I (cervical intraepithelial neoplasia I) Surgical History S/P S/P wisdom tooth extraction S/P cholecystectomy Family History Mother Hypertension Kidney disease CLL (chronic lymphocytic leukemia) Melanoma Father Hyperlipidemia Grandfather Myocardial infarction Grandmother Dementia Other Colon cancer Social History Smoking Status: Former smoker alcohol intake: current details: occasionally substance use type: does not use caffeine: Yes what type of physical activity do you participate in: walking and weight training frequency: 3-4 times per week seatbelt use: always do you feel safe at home: Yes additional social history: - Rufino History 3 Elective abortions Hx Para 2 Spontaneous abortions Hx # Term Pregnancies Ectopic pregnancies Hx # Pregnancies Multiple births # of living children Past Pregnancies Del. Date Name GA/Weeks Outcome Route Bth Weight Gen Labor Lgth Anesthesia Del Locatn Provider FOB Unknown Sergey Unknown Cruz HPI 8 wk follow up Details: STEFANI SANTOS is a 38 year old Female presenting for a weight management follow up. She is down 1 pound from her 4 week NV check. 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 She reports she is in a tractor for a good part of her day. She continues to exercise in the morning, has a routine diet. Eating a lot of the same foods every day. Female Reproductive History Last Menstrual Period: 12/14/23 Cycle Length: 21-35 ROS Const Reports as per HPI, Denies difficulty sleeping, Denies excessive sweating, Denies fatigue (new onset severe) and Denies fever(s) Eyes Denies change in vision and Denies diplopia ENT Denies dizziness Card Denies chest pain, Denies dyspnea, Denies dyspnea on exertion, Denies palpitations and Denies rapid heart rate Resp Denies dyspnea and Denies dyspnea on exertion GI Reports as per HPI, Denies abdominal pain and Denies constipation Musc Denies numbness Neuro No confusion, No dizziness, No memory loss and No numbness Psych Denies confusion, Denies depression, Denies memory loss, Denies mood swings and Denies suicidal ideation Endo Denies excessive sweating, Denies fatigue (new onset severe), Denies palpitations and Reports other (denies symptoms of hypoglycemia) Exam Const General: cooperative, healthy appearing, comfortable and no acute distress Orientation: alert HENAK Head: normal to inspection and normocephalic Ears: hearing grossly normal bilaterally and external ears normal Nose: external nose normal Face and sinus: normal facial exam Eyes General: appearance normal, both eyes and all related structures Resp Effort Inspection: normal respiratory effort Auscultation: clear to auscultation bilaterally Cardio Rate: regular rate Rhythm: regular rhythm Heart Sounds: S1 normal and S2 normal GI Inspection: normal to inspection and non-distended Palpation: soft, no hepatosplenomegaly and no guarding Musc Other: gross motor intact no deficits, full bilateral strength Skin Gener (more content not included)... Normal [facility] Senior Analytical Chemist Office Visit Reporton 12-14-2023 Senior Analytical Chemist Office Visit Report [facility] [address], [address] [place] [address] OFFICE VISIT Date of Service: 12/14/23 MR#: [id number] Acct: [id number] Name: STEFANI SANTOS Rep #: [id number] : 1985 Provider: AALIYAH Roberts Age/Sex: 38/F Location: [facility] [place] [place] Status: Signed Intake Vital Signs 11/03/23 13:07 12/14/23 13:13 Height 5 ft 8 in 5 ft 8 in Weight: 194 lb 4 oz BMI 29.5 BP 123/80 H Pulse 85 Intake Visit Reasons: 4 wk fu Chief Complaint: weight management Tomb Maker Helper Required: No Is patient in pain?: No Allergies No Known Allergies Allergy (Verified 12/14/23 13:12) Medications ???Medication ???Instructions ???Recorded ???Confirmed ???Type biotin 5 mg capsule 5 mg PO DAILY 09/09/21 12/14/23 History calcium 600 mg (as cap PO 09/09/21 12/14/23 History carbonate)-vitamin D3 12.5 mcg (500 unit) capsule (Calcium with Vit D3) levocetirizine 5 mg tablet (Xyzal) 5 mg PO DAILY 09/09/21 12/14/23 History multivitamin 1 tab PO DAILY 09/09/21 12/14/23 History triamcinolone acetonide 55 mcg 2 spray intranasal DAILY 09/09/21 12/14/23 History nasal spray aerosol (Nasacort) phentermine 37.5 mg tablet 37.5 mg PO QDAY #30 tabs 12/14/23 12/14/23 Rx (Adipex-P) Last Menstrual Period: 08/31/23 PFSH PFSH Medical History Normal hemoglobin A1c level ASCUS with positive high risk HPV SERA I (cervical intraepithelial neoplasia I) Surgical History S/P S/P wisdom tooth extraction S/P cholecystectomy Family History Mother Hypertension Kidney disease CLL (chronic lymphocytic leukemia) Melanoma Father Hyperlipidemia Grandfather Myocardial infarction Grandmother Dementia Other Colon cancer Social History Smoking Status: Former smoker alcohol intake: current details: occasionally substance use type: does not use caffeine: Yes what type of physical activity do you participate in: walking and weight training frequency: 3-4 times per week seatbelt use: always do you feel safe at home: Yes additional social history: - Rufino History 3 Elective abortions Hx Para 2 Spontaneous abortions Hx # Term Pregnancies Ectopic pregnancies Hx # Pregnancies Multiple births # of living children Past Pregnancies Del. Date Name GA/Weeks Outcome Route Bth Weight Gen Labor Lgth Anesthesia Del Locatn Provider FOB Unknown Sergey Unknown Cruz HPI 4 wk fu Details: STEFANI SANTOS is a 38 year old Female presenting for a weight management follow up; she recently was involved with the [facility]. 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 She reports she is still taking medication compliantly. Female Reproductive History Last Menstrual Period: 08/31/23 Assessment and Plan Assessment and Plan (1) BMI 29.0-29.9,adult: Status: Acute Comment: SW- 211 02/14; 191 today; down additional 3 pounds. Total loss 10%; today 12/14/23 up 194. Recently at [facility] with some hinderances to diet. Initial goal- s/p 5% weight reduction within 3 months of nutritional and medication intervention recommendations. Additional 5% goal within the next 3 months. initial obesity assessment lab panel reviewed; maintenance labs reviewed 08/04. Nutrition plan: Balanced calorie restricted nutritional plan [id number] dulce. Myfitnesspal-continue to track as able; protein approx 95g protein; carbs 200; limit carbs in the next month Medication plan: Continue full tab 37.5mg phentermine; tolerating well. Consider decrease of dose next appt. control- vasectomy. Behavior intervention: Continue myfitnesspal; limit caffeine intake in morning until after breakfast. Exercise plan: incorporate Treadmill; add weights. Limited cardio however foot improved; doing better from that standpoint and able to incorporate more steps. NEAT activity; resistance training. (2) BMI 30.0-30.9,adult: Status: Acute Comment: - 02/14 Initial goal- s/p 5% weight reduction within 3 months of nutritional and medication intervention recommendations. initial obesity assessment lab panel reviewed-maintenance labs ordered today. (3) Fatigue: Status: Acute Comment: nl cbc vit d and tsh (4) Metabolic syndrome: Status: Acute Comment: recommend 5-10% weight reduction. elevated fasting glucose, h/o GDM WC 97cm (5) Borderline high cholesterol: Status: Acute Comment: recommend heart healthy diet and weight reduction; will recheck labs at next visit in 3 months. (6) Elevated fasting glucose: Status: Acute Comment: nl HgA1C. (7) Other obes (more content not included)... Normal [facility] Senior Analytical Chemist Office Visit Reporton 11-03-2023 Senior Analytical Chemist Office Visit Report [facility] [address], [address] [place] [address] OFFICE VISIT Date of Service: 11/03/23 MR#: [id number] Acct: [id number] Name: STEFANI SANTOS Rep #: [id number] : 1985 Provider: AALIYAH Roberts Age/Sex: 38/F Location: [facility] [place] [place] Status: Signed Intake Vital Signs 07/21/23 09:00 09/22/23 11:25 11/03/23 13:06 11/03/23 13:07 Height 5 ft 8 in 5 ft 8 in 5 ft 8 in 5 ft 8 in Weight: 191 lb 2 oz BMI 29.0 BP 123/84 H Pulse 96 Intake Visit Reasons: 3 MO FU Chief Complaint: weight management Tomb Maker Helper Required: No Is patient in pain?: No Allergies No Known Allergies Allergy (Verified 11/03/23 13:06) Medications ???Medication ???Instructions ???Recorded ???Confirmed ???Type biotin 5 mg capsule 5 mg PO DAILY 09/09/21 11/03/23 History calcium carbonate 600 mg-vitamin cap PO 09/09/21 11/03/23 History D3 12.5 mcg (500 unit) capsule (Calcium 600 with Vitamin D3) levocetirizine 5 mg tablet (Xyzal) 5 mg PO DAILY 09/09/21 11/03/23 History multivitamin 1 tab PO DAILY 09/09/21 11/03/23 History triamcinolone acetonide 55 mcg 2 spray intranasal DAILY 09/09/21 11/03/23 History nasal spray aerosol (Nasacort) phentermine 37.5 mg tablet 37.5 mg PO QDAY #30 tabs 11/03/23 11/03/23 Rx (Adipex-P) Last Menstrual Period: 08/31/23 Have you fallen in the past year?: No PFSH PFSH Medical History Normal hemoglobin A1c level ASCUS with positive high risk HPV SERA I (cervical intraepithelial neoplasia I) Surgical History S/P S/P wisdom tooth extraction S/P cholecystectomy Family History Mother Hypertension Kidney disease CLL (chronic lymphocytic leukemia) Melanoma Father Hyperlipidemia Grandfather Myocardial infarction Grandmother Dementia Other Colon cancer Social History Smoking Status: Former smoker alcohol intake: current details: occasionally substance use type: does not use caffeine: Yes what type of physical activity do you participate in: walking and weight training frequency: 3-4 times per week seatbelt use: always do you feel safe at home: Yes additional social history: - Rufino History 3 Elective abortions Hx Para 2 Spontaneous abortions Hx # Term Pregnancies Ectopic pregnancies Hx # Pregnancies Multiple births # of living children Past Pregnancies Del. Date Name GA/Weeks Outcome Route Bth Weight Gen Labor Lgth Anesthesia Del Locatn Provider FOB Unknown Sergey Unknown Cruz HPI 3 MO FU Details: STEFANI SANTOS is a 38 year old Female presenting for a weight management follow up. She is doing well and down additional 3 pounds. She reports compliancy to medication intake. Happy with her results. Feels her clothes are fitting better and feeling good about herself. She reports no issues or concerns. Female Reproductive History Last Menstrual Period: 08/31/23 ROS Const Reports as per HPI, Denies difficulty sleeping, Denies excessive sweating, Denies fatigue (new onset severe) and Denies fever(s) Eyes Denies change in vision and Denies diplopia ENT Denies dizziness Card Denies chest pain, Denies dyspnea, Denies dyspnea on exertion, Denies palpitations and Denies rapid heart rate Resp Denies dyspnea and Denies dyspnea on exertion GI Reports as per HPI, Denies abdominal pain and Denies constipation Musc Denies numbness Neuro No confusion, No dizziness, No memory loss and No numbness Psych Denies confusion, Denies depression, Denies memory loss, Denies mood swings and Denies suicidal ideation Endo Denies excessive sweating, Denies fatigue (new onset severe), Denies palpitations and Reports other (denies symptoms of hypoglycemia) Exam Const General: cooperative, healthy appearing, comfortable and no acute distress Orientation: alert HENMT Head: normal to inspection and normocephalic Ears: hearing grossly normal bilaterally and external ears normal Nose: external nose normal Face and sinus: normal facial exam Eyes General: appearance normal, both eyes and all related structures Resp Effort Inspection: normal respiratory effort Auscultation: clear to auscultation bilaterally Cardio Rate: regular rate Rhythm: regular rhythm Heart Sounds: S1 normal and S2 normal GI Inspection: normal to inspection and non-distended Palpation: soft, no hepatosplenomegaly and no guarding Musc Other: gross motor intact no deficits, full bilateral strength Skin General: no rashes or lesions noted Neuro General: patient alert, moves all extremities (more content not included)... Normal [facility] POCT Group A Streptococcus, PCR manually resultedOrdered By: Lisa Fernandez on 06-17-2023 S. pyogenes DNA JEMIMA+probe Ql (Throat) Not detected Not Detected [facility] Absolute lymphocyte countOrd ered By: Elyssa Ruiz on 02-08-2023 Lymphocytes Auto (Unsp spec) [#/Vol] 1.43 10*3/uL 0.83-4.51 [facility] Basophil percentageOrdered B y: Elyssa Ruiz on 02-08-2023 Basophils/100 WBC (Bld) 0.4 % 0-1 [facility] Bilirubin [Mass/Vol] 0.60 mg/dL 0.20-1.00 [facility] Comment on above: For patients on eltr ombopag therapy, use of Dimension [place] TBIL is not recommended. Chloride [Moles/Vol] 106 mmol/L 98-107 [facility] Cholesterol [Mass/Vol] 203 mg/dL <200 [facility] Comment on above: <200 mg/dL Desirable 200-240 mg/dL Borderline >240 mg/dL High Risk Eosinophils/100 WBC (Bld) 1.8 % 0-5 [facility] Glucose [Mass/Vol] 108 mg/dL 74-106 [facility] Comment on above: Fasting Glucose resu lt from 100 to 125 mg/dL suggests IMPAIRED HOMEOSTASIS per A.D.A. criteria. Neutrophils (Bld) [#/Vol] 3.6 10*3/uL 2.0-7.7 [facility] Neutrophils/100 WBC (Bld) 66.9 % 47-70 [facility] [facility] Potassium [Moles/Vol] 4.0 mmol/L 3.5-5.1 [facility] Protein [Mass/Vol] 7.5 g/dL 6.4-8.2 [facility] Sodium [Moles/Vol] 137 mmol/L 136-145 [facility] Triglyceride [Mass/Vol] 168 mg/dL <199 [facility] Comment on above: The drugs N-Acetylcy steine and Metamizole may falsely depress this assay.Serum Triglycerides Reference Interval Normal <150 mg/dL Borderline high 150 - 199 mg/dL High 200 - 499 mg/dL Very High > or = 500 mg/dL WBC (Bld) [#/Vol] 5.4 10*3/uL 4.4-11.0 [facility] Blood erythrocytes count (nu mber/volume)Ordered By: Elyssa Ruiz on 02-08-2023 RBC (Bld) [#/Vol] 4.53 10*6/uL 4.2-5.4 [facility] Blood hemoglobin measurement (mass/volume)Ordered By: Elyssa Ruiz on 02-08-2023 Hemoglobin (Bld) [Mass/Vol] 13.5 g/dL 12.0-15.0 [facility] Blood lymphocytes/100 leukoc ytesOrdered By: Elyssa Ruiz on 02-08-2023 Lymphocytes/100 WBC (Bld) 26.3 % 19-41 [facility] Blood monocytes/100 leukocyt esOrdered By: Elyssa Ruiz on 02-08-2023 Monocytes/100 WBC (Bld) 4.4 % 0-10 [facility] Blood platelet mean volumeOr dered By: Elyssa Ruiz on 02-08-2023 Platelet mean volume (Bld) [Entitic vol] 11.2 fL 6.2-12.0 [facility] Determination of erythrocyte mean corpuscular volume (MCV)Ordered By: Elyssa Ruiz on 02-08-2023 MCV (RBC) [Entitic vol] 92.3 fL 81-99 [facility] Hematocrit Auto (Bld) [Volum e fraction]Ordered By: Elyssa Ruiz on 02-08-2023 Hematocrit (Bld) [Volume fraction] 41.8 % 37-47 [facility] Laboratory - Chemistry and C hemistry - challengeOrdered By: Elyssa Ruiz on 02-08-2023 ALP [Catalytic activity/Vol] 58 U/L 45-117 [facility] ALT [Catalytic activity/Vol] 20 U/L 13-56 [facility] CO2 [Moles/Vol] 29.0 mmol/L 21.0-32.0 [facility] Globulin (S) [Mass/Vol] 3.6 g/dL 2.2-4.2 [facility] Urea nitrogen/Creatinine [Mass ratio] 13.7 mg/mg 10-20 [facility] Laboratory - Hematology and Cell countsOrdered By: Elyssa Ruiz on 02-08-2023 Erythrocyte distribution width (RBC) [Entitic vol] 42.3 fL 35.1-43.9 [facility] Erythrocyte distribution width (RBC) [Ratio] 12.4 % 11.6-14.6 [facility] Immature granulocytes/100 WBC (Bld) 0.200 % 0.0-0.9 [facility] Comment on above: IG% - Immature Granu locytes (promyelocytes, myelocytes and metamyelocytes) > 1% indicates that a LEFT SHIFT is Present. MCH (RBC) [Entitic mass] 29.8 pg 27.0-32.0 [facility] Nucleated RBC/100 WBC (Bld) [Ratio] 0 % 0-5 [facility] ([facility]BC) [Mass/Vol]Or dered By: Elyssa Ruiz on 02-08-2023 MCHC (RBC) [Mass/Vol] 32.3 g/dL 32-36 [facility] No Panel InformationOrdered By: Elyssa Ruiz on 02-08-2023 Estimated GFR (MDRD) Amer 92 mL/min >60 [facility] Comment on above: GFR Calc Estimated GFR (MDRD) Non-Af Amer 76 mL/min >60 [facility] Comment on above: Non- GFR Calc Thyroid Stimulating Hormone (TSH) 2.91 uIU/mL 0.358-3.74 [facility] Vitamin D 25-Hydroxy 54.4 ng/mL [facility] Comment on above: Vitamin D 25(OH) Sta tus Range Deficiency <20 ng/mL (50nmol/L) Insufficiency 20 - 30 ng/mL (50 - 75 nmol/L) Sufficiency 30 - 100 ng/mL (75 - 250 nmol/L) Toxicity >100 ng/mL (>250 nmol/L) Platelets bldOrdered By: Cal Ruiz on 02-08-2023 Platelets (Bld) [#/Vol] 192 10*3/uL 150-450 [facility] Serum or plasma albumin georgina urement (mass/volume)Ordered By: Elyssa Ruiz on 02-08-2023 Albumin [Mass/Vol] 3.9 g/dL 3.2-5.0 [facility] Serum or plasma albumin/glob ulin mass ratioOrdered By: Elyssa Ruiz on 02-08-2023 Albumin/Globulin [Mass ratio] 1.1 {ratio} 0.9-2.4 [facility] Serum or plasma calcium georgina urement (mass/volume)Ordered By: Elyssa Ruiz on 02-08-2023 Calcium [Mass/Vol] 8.8 mg/dL 8.5-10.1 [facility] Serum or plasma cholesterol in HDL measurement (mass/volume)Ordered By: Elyssa Ruiz on 02-08-2023 Cholesterol in HDL [Mass/Vol] 49 mg/dL >40 [facility] Comment on above: The drugs N-Acetylcy steine and Metamizole may falsely depress this assay. Reference Range HDL <40 mg/dL Low HDL Cholesterol HDL >or= 60 mg/dL High HDL Cholesterol Serum or plasma cholesterol in VLDL measurement (mass/volume)Ordered By: Elyssa Ruiz on 02-08-2023 Cholesterol in VLDL [Mass/Vol] 34 mg/dL 5-40 [facility] Serum or plasma creatinine m easurement (mass/volume)Ordered By: Elyssa Ruiz on 02-08-2023 Creatinine [Mass/Vol] 0.88 mg/dL 0.55-1.02 [facility] Comment on above: The validity of the calculated GFR & GFRAA in patients over 70 years has not been determined. Clinical correlation is essential. Serum or plasma low density lipoprotein (LDL) cholesterol measurement (mass/volume)Ordered By: Elyssa Ruiz on 02-08-2023 Cholesterol in LDL [Mass/Vol] 120 mg/dL 0-130 [facility] Serum or plasma urea nitroge n measurement (mass/volume)Ordered By: Elyssa Ruiz on 02-08-2023 Urea nitrogen [Mass/Vol] 12 mg/dL 7-18 [facility] Thin prep Papanicolaou smear with manual screeningOrdered By: Elyssa Ruiz on 02-08-2023 Thin prep Papanicolaou smear with manual screening 9 U/L 15-37 [facility] Thin prep Papanicolaou smear with manual screening 2 5-15 [facility] Whole blood hemoglobin A1c/t otal hemoglobin ratio (mass fraction)Ordered By: Elyssa Ruiz on 02-08-2023 HbA1c (Bld) [Mass fraction] 5.3 % 3.8-5.6 [facility] Comment on above: Normal < 5.7 % Predi abetic 5.7 - 6.4 % Diabetic >or= 6.5 % Please note range changes. CBC AND DIFFERENTIALon 06-11 % AUTOMATED IMMATURE GRAN 0.2 % Normal 0.0 - 0.9 [facility] Comment on above: Result Comment: Tamie ture Granulocyte Count (IG) includes promyelocytes, myelocytes and metamyelocytes but does not include bands. Percent differential counts (%) should be interpreted in the context of the absolute cell counts (cells/L). Performed By: #### C BCDF #### [address] [address] Basophils (Bld) [#/Vol] 0.02 10*3/uL Normal 0.00 - 0.1 0 [facility] Comment on above: Performed By: #### C BCDF #### [address] [address] Basophils/100 WBC (Bld) 0.5 % Normal 0.0 - 2.0 [facility] Comment on above: Performed By: #### C BCDF #### [address] [address] Eosinophils (Bld) [#/Vol] 0.09 10*3/uL Normal 0.00 - 0.70 [facility] Comment on above: Performed By: #### C BCDF #### [address] [address] Eosinophils/100 WBC (Bld) 2.1 % Normal 0.0 - 6.0 [facility] Comment on above: Performed By: #### C BCDF #### [address] [address] Erythrocyte distribution width (RBC) [Ratio] 12.7 % Normal 11.5 - 14.5 [facility] Comment on above: Performed By: #### C BCDF #### [address] [address] Hematocrit (Bld) [Volume fraction] 40.7 % Normal 36.0 - 46.0 [facility] Comment on above: Performed By: #### C BCDF #### [address] [address] Hemoglobin (Bld) [Mass/Vol] 12.9 g/dL Normal 12.0 - 16.0 [facility] Comment on above: Performed By: #### C BCDF #### [address] [address] Lymphocytes (Bld) [#/Vol] 1.33 10*3/uL Normal 1.20 - 4.80 [facility] Comment on above: Performed By: #### C BCDF #### [address] [address] Lymphocytes/100 WBC (Bld) 30.7 % Normal 13.0 - 44.0 [facility] Comment on above: Performed By: #### C BCDF #### [address] [address] MCHC (RBC) [Mass/Vol] 31.7 g/dL Low 32.0 - 36.0 [facility] Comment on above: Performed By: #### C BCDF #### [address] [address] MCV (RBC) [Entitic vol] 92 fL Normal 80 - 100 [facility] Comment on above: Performed By: #### C BCDF #### [address] [address] Monocytes (Bld) [#/Vol] 0.20 10*3/uL Normal 0.10 - 1.0 0 [facility] Comment on above: Performed By: #### C BCDF #### [address] [address] Monocytes/100 WBC (Bld) 4.6 % Normal 2.0 - 10.0 [facility] Comment on above: Performed By: #### C BCDF #### [address] [address] Neutrophils (Bld) [#/Vol] 2.68 10*3/uL Normal 1.20 - 7.70 [facility] Comment on above: Result Comment: Perc ent differential counts (%) should be interpreted in the context of the absolute cell counts (cells/L). Performed By: #### C BCDF #### [address] [address] Neutrophils/100 WBC (Bld) 61.9 % Normal 40.0 - 80.0 [facility] Comment on above: Performed By: #### C BCDF #### [address] [address] Platelets (Bld) [#/Vol] 173 10*3/uL Normal 150 - 450 [facility] Comment on above: Performed By: #### C BCDF #### [address] [address] RBC 4.44 x10E12/L Normal 4.00 - 5.20 [facility] Comment on above: Performed By: #### C BCDF #### [address] [address] WBC (Bld) [#/Vol] 4.3 10*3/uL Low 4.4 - 11.3 [facility] Comment on above: Performed By: #### C BCDF #### [address] [address] COMPREHENSIVE PANELon 2022 Albumin [Mass/Vol] 4.4 g/dL Normal 3.4 - 5.0 [facility] Comment on above: Performed By: #### C MP #### [address] [address] ALP [Catalytic activity/Vol] 46 U/L Normal 33 - 110 [facility] Comment on above: Performed By: #### C MP #### [address] [address] ALT [Catalytic activity/Vol] 10 U/L Normal 7 - 45 [facility] Comment on above: Result Comment: Yvonne ents treated with Sulfasalazine may generate falsely decreased results for ALT. Performed By: #### C MP #### [address] [address] Anion gap [Moles/Vol] 10 mmol/L Normal 10 - 20 [facility] Comment on above: Performed By: #### C MP #### [address] [address] AST [Catalytic activity/Vol] 13 U/L Normal 9 - 39 [facility] Comment on above: Performed By: #### C MP #### [address] [address] Bilirubin [Mass/Vol] 0.5 mg/dL Normal 0.0 - 1.2 [facility] Comment on above: Performed By: #### C MP #### [address] [address] Calcium [Mass/Vol] 9.0 mg/dL Normal 8.6 - 10.3 [facility] Comment on above: Performed By: #### C MP #### [address] [address] Chloride [Moles/Vol] 107 mmol/L Normal 98 - 107 [facility] Comment on above: Performed By: #### C MP #### [address] [address] Creatinine [Mass/Vol] 0.67 mg/dL Normal 0.50 - 1.05 [facility] Comment on above: Performed By: #### C MP #### [address] [address] eGFR FEMALE >90 Normal >90 [facility] Comment on above: Result Comment: CALC ULATIONS OF ESTIMATED GFR ARE PERFORMED USING THE 2020 CKD-EPI STUDY REFIT EQUATION WITHOUT THE RACE VARIABLE FOR THE IDMS-TRACEABLE CREATININE METHODS. https://jasn.asnjournals.org/content//ASN.123 4069673 Performed By: #### C MP #### [address] [address] Glucose [Mass/Vol] 93 mg/dL Normal 74 - 99 [facility] Comment on above: Performed By: #### C MP #### [address] [address] HCO3 (Bld) [Moles/Vol] 27 mmol/L Normal 21 - 32 [facility] Comment on above: Performed By: #### C MP #### [address] [address] Potassium [Moles/Vol] 4.0 mmol/L Normal 3.5 - 5.3 [facility] Comment on above: Performed By: #### C MP #### [address] [address] Protein [Mass/Vol] 6.5 g/dL Normal 6.4 - 8.2 [facility] Comment on above: Performed By: #### C MP #### [address] [address] Sodium [Moles/Vol] 140 mmol/L Normal 136 - 145 [facility] Comment on above: Performed By: #### C MP #### [address] [address] Urea nitrogen [Mass/Vol] 14 mg/dL Normal 6 - 23 [facility] Comment on above: Performed By: #### C MP #### [address] [address] FOLLICLE STIM. HORMONEon FOLLICLE STIM. HORMONE 5.9 IU/L Normal [facility] Comment on above: Result Comment: REF VALUES FOLLICULAR 2-12 MID-CYCLE 12-25 LUTEAL PHASE 2-12 MENOPAUSE 30-150 PREPUBERTY 50% ADULT ADULT MALE 2-10 INFANTS 0-1 Performed By: #### F SH #### [facility] [address] [place] [address] HEMOGLOBIN A1Con 06-11-2022 Glucose [Mass/Vol] 105 mg/dL Normal [facility] Comment on above: Performed By: #### H BA1E #### [address] [address] HbA1c (Bld) [Mass fraction] 5.3 % Normal [facility] Comment on above: Result Comment: Diag nosis of Diabetes-Adults Non-Diabetic: < or = 5.6% Increased risk for developing diabetes: 5.7-6.4% Diagnostic of diabetes: > or = 6.5% . Monitoring of Diabetes Age (y) Therapeutic Goal (%) Adults: >18 <7.0 Pediatrics: 13-18 <7.5 7-12 <8.0 0- 6 7.5-8.5 [place] [employer]. Diabetes Care 33(S1), Mar 2009. Performed By: #### H BA1E #### [address] [address] LIPID PANEL (CORONARY RISK 2 )on 06-11-2022 Cholesterol [Mass/Vol] 187 mg/dL Normal 0 - 199 [facility] Comment on above: Result Comment: . AGE DESIRABLE BORDERLINE HIGH HIGH 0-19 Y 0 - 169 170 - 199 >/= 200 20-24 Y 0 - 189 190 - 224 >/= 225 >24 Y 0 - 199 200 - 239 >/= 240 All ranges are based on fasting samples. Specific therapeutic targets will vary based on patient-specific cardiac risk. . Pediatric guidelines reference:Pediatrics 2011, 128(S5). Adult guidelines reference: NCEP ATPIII Guidelines, [place] 2001, 258:2486-97 . Venipuncture immediately after or during the administration of Metamizole may lead to falsely low results. Testing should be performed immediately prior to Metamizole dosing. Performed By: #### L IPID #### [address] [address] Cholesterol in HDL [Mass/Vol] 44.0 mg/dL Normal [facility] Comment on above: Result Comment: . AGE VERY LOW LOW NORMAL HIGH 0-19 Y < 35 < 40 40-45 ---- 20-24 Y ---- < 40 >45 ---- >24 Y ---- < 40 40-60 >60 . Performed By: #### L IPID #### [address] [address] Cholesterol in LDL [Mass/Vol] 116 mg/dL High 0 - 99 [facility] Comment on above: Result Comment: . NEAR BORD AGE DESIRABLE OPTIMAL HIGH HIGH VERY HIGH 0-19 Y 0 - 109 --- 110-129 >/= 130 ---- 20-24 Y 0 - 119 --- 120-159 >/= 160 ---- >24 Y 0 - 99 100-129 130-159 160-189 >/=190 . Performed By: #### L IPID #### [address] [address] Cholesterol in VLDL [Mass/Vol] 27 mg/dL Normal 0 - 40 [facility] Comment on above: Performed By: #### L IPID #### [address] [address] Cholesterol.total/Choles terol in HDL [Mass ratio] 4.3 {ratio} Normal [facility] Comment on above: Result Comment: REF VALUES DESIRABLE < 3.4 HIGH RISK > 5.0 Performed By: #### L IPID #### [address] [address] Triglyceride [Mass/Vol] 133 mg/dL Normal 0 - 149 [facility] Comment on above: Result Comment: . AGE DESIRABLE BORDERLINE HIGH HIGH VERY HIGH 0 D-90 D 19 - 174 ---- ---- ---- 91 D- 9 Y 0 - 74 75 - 99 >/= 100 ---- 10-19 Y 0 - 89 90 - 129 >/= 130 ---- 20-24 Y 0 - 114 115 - 149 >/= 150 ---- >24 Y 0 - 149 150 - 199 200- 499 >/= 500 . Venipuncture immediately after or during the administration of Metamizole may lead to falsely low results. Testing should be performed immediately prior to Metamizole dosing. Performed By: #### L IPID #### [place] [id number] LUTEINIZING HORMONEon 2022 LUTEINIZING HORMONE 5.6 IU/L Normal [facility] Comment on above: Result Comment: REF VALUES FOLLICULAR PHASE 1.9-12.5 MID-CYCLE 8.7-76.3 LUTEAL PHASE 0.5-16.9 POST MENOPAUSE 5.0-55.2 CHILDREN 0- 6.0 ADULT MALE 18-70 1.5- 9.3 ADULT MALE >70 3.1-34.6 Performed By: #### L H #### [facility] [address] [place] [id number] Lab Specimen Source Normal [facility] Comment on above: Performed By: #### L H #### [facility] [address] [place] [address] Performed By: #### F SH #### [facility] [address] [place] [address] Performed By: #### C MP #### [address] [address] Performed By: #### L IPID #### [address] [address] Performed By: #### T HYDS #### [address] [address] Performed By: #### V TDOH #### [place] [id number] Performed By: #### C BCDF #### [place] [id number] Performed By: #### V TB12 #### [place] [id number] TSH WITH REFLEX TO FREE T4 I F ABNORMALon 06-11-2022 TSH Qn 1.67 m[IU]/L Normal 0.44 - 3.98 [facility] Comment on above: Result Comment: TSH testing is performed using different testing methodology at [facility] than at other [facility]. Direct result comparisons should only be made within the same method. Performed By: #### T HYDS #### [place] [id number] VITAMIN B12on 06-11-2022 Cobalamin (Vitamin B12) [Mass/Vol] 344 pg/mL Normal 211 - 911 [facility] Comment on above: Performed By: #### V TB12 #### [place] [id number] VITAMIN D, 25-HYDROXYon 05-14 VITAMIN D, 25-HYDROXY 55 ng/mL Normal [facility] Comment on above: Result Comment: . DEFICIENCY: < 20 NG/ML INSUFFICIENCY: 20-29 NG/ML SUFFICIENCY: 30-100 NG/ML THIS ASSAY ACCURATELY QUANTIFIES THE SUM OF VITAMIN D3, 25-HYDROXY AND VIT D2,25-HYDROXY. Performed By: #### V TDOH #### [address] [address] Office Visit (Internal Medic ine)on 07-01-2021 Follow-up visit Diagnoses/Problems Assessed Folliculitis (704.8) (L73.9) Orders Folliculitis Start: Doxycycline Hyclate 100 MG Oral Tablet; TAKE 1 TABLET TWICE DAILY UNTIL GONE Rx By: Orlando Underwood; Dispense: 7 Days ; #:14 Tablet; Refill: 0;For: Folliculitis; EZEQUIEL = N; Sent To: [facility] Patient Discussion/Summary Exam is consistent with folliculitis. Prescription for doxycycline. Recommend continue Bactroban on any that open. Follow-up as needed. Chief Complaint Patient here today to be seen for bilateral thigh AND leg skin irritation area with discomfort x 2 days. Patient states has been in the hot tub after shaving her legs. Patient has used OTC Mupirocin 2% cream last night that helped with the irritation. Patient denies any itching. History of Present IllnessPatient presents for evaluation of follicular eruptions. Patient reports shaving the legs and then entering a hot tub soon thereafter. Patient reports a couple painful, small, erythematous pustules in the bilateral medial thighs and lower legs. Patient started applying Bactroban which did improve symptoms. No other areas of concern. No other complaints. Review of Systems Constitutional: no fever. Skin: as noted in HPI. Active Problems Problems Pharyngitis due to Streptococcus pyogenes (034.0) (J02.0) Reactive airway disease (493.90) (J45.909) Sinus infection (473.9) (J32.9) Past Medical History Problems History of migraine (V12.49) (Z86.69) History of obesity (V12.29) (Z86.39) Surgical History Problems History of section History of Cholecystectomy History of [place] tooth extraction Family History Mother Family history of hypertension (V17.49) (Z82.49) Family history of kidney disease (V18.69) (Z84.1) Family history of leukemia (V16.6) (Z80.6) Social History Problems Alcohol use (V49.89) (Z72.89) Former smoker (V15.82) (Z87.891) Allergies NoKnown No Known Allergies Recorded By: Shelly Vieira; 09/01/2018 9:46:18 AM Current Meds Medication NameInstruction Albuterol Sulfate HFA 108 (90 Base) MCG/ACT Inhalation Aerosol SolutionINHALE 1 TO 2 PUFFS EVERY 6 HOURS NEEDED. APAP CAPSUse as directed. Benzonatate 100 MG Oral CapsuleTAKE 1 CAPSULE 3 TIMES DAILY NEEDED. Nasonex 50 MCG/ACT SUSPUse as directed. SUMAtriptan Succinate 50 MG Oral TabletTAKE DIRECTED. Xyzal 5 MG TABSUse as directed. Vitals Vital Signs Recorded: 01Jul2021 10:59AM Heart Rate82 [id number] Qocutqymc76 Height5 ft 8 in Xwyfrc039 lb 3.2 oz BMI Wzbaoevlzp70.29 kg/m2 BSA Calculated2.04 Tobacco Useb) No PHQ-2 #1. Over the last 2 weeks have you felt down, depressed or hopeless? (If yes, answer PHQ-9 below)No Fall Screeninga) No falls within the last year Physical Exam Constitutional General appearance: Alert and in no acute distress. Eyes Inspection of eyes: Sclera and conjunctiva were normal. Ears, Nose, Mouth, and Throat Ears: Auricles: Normal. Pulmonary Respiratory assessment: No respiratory distress, normal respiratory rhythm and effort. Skin Bilateral medial thighs with patches of small, tender, pustules; several other small patches on bilateral calves. Neurologic Cranial nerves: Nerves 2-12 were intact, no focal neuro defects. Signatures Electronically signed by : Orlando Underwood PA-C; Jul 01 2021 11:14AM EST (Author) Normal [facility] Tobacco Screening.on 022 Adult depression screening assessment No [facility] Work Phone: Fall risk assessment a) No falls within the last year [facility] Work Phone: Tobacco use status CP b) No M [facility] Work Phone: CNOVon 05-07-2020 CNOV Office Visit (OBGYWM ) STEFANI SANTOS ([id number]) 1985 F Date Time Provider Department 05/07/20 9:00 AM WENDI MEIER ([facility]) OBGYWM During your visit today, we recorded the following information about you: Blood pressure Weight Height Last Period 134/82 95.3 kg 1.727 m 03/28/20 Wendi Meier, SIDEROGRAPHER.ARIANNE 05/07/2020 9:59 AM Signed Lay Brother offered: Patient declines. Stefani is a 35 year old who presents for an annual gynecologic exam with complaints - abdominal cramping, not sure if it continuation of UTI symptoms or pre-menstrual. Treated for UTI last week, feels like she is now getting cramping like at the onset of UTI. Treated with Macrobid and symptoms resolved. Was prescribed Cipro for better coverage but did not take it. Menses: cycles every 30-35 days and 3-5 days of flow. Contraception: vasectomy HPV vaccine: No Last Pap: 2017 ASCUS HPV: 2017 HRHPV positive History of abnormal pap: Yes. 2017 Colposcopy CIN1 - did not have repeat Pap Last mammogram: never Sexually active: Yes Time with current partner: 13 years Pain with intercourse: No Postcoital bleeding: No OB History T2 L2 SAB1 TAB0 Ectopic0 Multiple0 Live Births2 PAST MEDICAL HISTORY Diagnosis Date - FRACTURE ELBOW - FRACTURE ANKLE - Gestational diabetes mellitus 01/11/2014 - Headache - Infertility, female - Miscarriage PAST SURGICAL HISTORY Procedure Laterality Date - DELIVERY ONLY 08/30/15 , low transverse - PAST SURGICAL HISTORY OF age 17 wisdom teeth extracted FAMILY HISTORY Problem Relation Age of Onset - Cancer Mother lymphoma - Hypertension Mother - Cancer Paternal Grandfather colon - Diabetes Paternal Grandfather - Lipids Paternal Grandfather - Heart Maternal Grandfather - Thyroid Maternal Grandmother SOCIAL HISTORY Social History Tobacco Use - Smoking status: Former Smoker Years: 2.00 Quit date: 08/14/2005 Years since quittin.7 - Smokeless tobacco: Never Used Substance Use Topics - Alcohol use: Yes Comment: occassional,NOT WHILE - Drug use: No REVIEW OF SYSTEMS Abdomen: No abdominal pain, nausea, vomiting, diarrhea, or constipation. No bloating, early satiety, indigestion, or increased flatulence. Bladder: No dysuria, gross hematuria, urinary frequency, urinary urgency, or incontinence. Breast: No breast lumps, nipple d/c, overlying skin changes, redness or skin retraction. Allergies and current medication updated:Yes EXAM: BP 134/82 Ht 5' 8 (1.73m) Wt 210 lb (95.3kg) LMP 03/28/2020 BMI 31.94 kg/(m2). GENERAL: pleasant, female in no apparent distress HEENT: Normocephalic, atraumatic, mucus membranes moist and no lesions NECK: Supple, full range of motion, no adenopathy and thyroid normal DERMATOLOGY: Normal, without lesions, non-icteric and non-hirsute BREAST: soft, non-tender, symmetric, no dominant mass, normal nipple-areolar complex, no lymphadenopathy and no nipple discharge CHEST: Normal inspiratory effort ABDOMEN: soft, non-tender and no masses PELVIC: external genitalia normal, normal Bartholin's glands, urethra, Yonah's glands, no vulvar lesions, no cervical lesions, good vaginal support, physiologic discharge present, normal appearing perineal body and perianal region, Nabothian cyst BIMANUAL: uterus normal size, shape and consistency, no adnexal masses and non-tender RECTOVAGINAL: deferred. NEURO: alert and oriented x3,exam grossly non-focal EXTREMITIES: normal ASSESSMENT/PLAN: 1) Health maintenance: Pap done with HPV. Mammogram starting age 40. Nutrition, exercise and routine health maintenance exams reviewed. Abdominal cramping - urine dip negative 2) Contraception: vasectomy. Contraceptive options reviewed and information provided. 3) STD screening: Declined STD check. 4) Follow up one year or sooner as needed Wendi Meier, LINDSEY.[employer]LING [employer] ASSEMBLER Referring Provider: SELF [200] Allergies As of Date: 05/07/2020 (No Known Allergies) Date Reviewed: 05/07/2020 Reviewed by: Wendi Meier - Fully Assessed Reason for Visit: Yearly Exam [187] Primary Visit Diagnosis:Encounter for gynecological examination (general) (routine) without abnormal findings [Z01.419] Other Visit Diagnoses:Papanicolao u smear of cervix with atypical squamous cells of undetermined significance (ASC-US) [R87.610] Cervical high risk human papillomavirus (HPV) DNA test positive [R87.810] Screening for HPV (human papillomavirus) [Z11.51] Abdominal cramping [R10.9] History of UTI [Z87.440] Order(s):PAP FLUID CERVICAL DIAGNOSTIC [8901520] Order #: [id number] UA DIP, URINE (POC) [[id number]] Order #: [id number]. #:[id number] Prescriptions as of 05/07/2020 Sig: ELDERBERRY ORAL Take by mouth. MULTIVITAMIN CHEWABLE TABLET Take by mouth. NASACORT NASAL Use in the nos (more content not included)... Normal [facility] HPV w/Genotypeon 05-07-2020 HPV HighRisk Other Negative for HPV DNA high risk types: 31,33,35,39,45,51,52, 56,58,59,66,68 by PCR. Normal [facility] Comment on above: Result Comment: This test was developed and its performance characteristics determined by [facility] [place] [facility] It has not been cleared or approved by the FDA. [facility] is regulated under CLIA as qualified to perform high-complexity testing. This test is used for clinical purposes. It should not be regarded as investigational or for research. Performed By: #### H PVHRR #### [place] [id number] [place] [phone] HPV HighRisk Type 16 Negative Normal [facility] Comment on above: Performed By: #### H PVHRR #### [place] [id number] [place] [phone] HPV HighRisk Type 18 Negative Normal [facility] Comment on above: Performed By: #### H PVHRR #### [place] [id number] [place] [phone] Vital Signs Date Time Vital Sign Value Performing Clinician Facility 10-31-2024 13:03-0400 Body height 172.[address] Marlon Shepherd DO Work Phone: [facility] 10-31-2024 13:03-0400 Body mass index (BMI) [Ratio] 29.5 kg/m2 Dr. Marlon Shepherd DO Work Phone: [facility] 10-31-2024 13:03-0400 Body weight 87.[address] Marlon Shepherd DO Work Phone: [facility] 10-31-2024 13:03-0400 Diastolic blood pressure 92 mm[Hg] Dr. Marlon Shepherd DO Work Phone: [facility] 10-31-2024 13:03-0400 Heart rate 87 /min Dr. Marlon Shepherd DO Work Phone: [facility] 10-31-2024 13:03-0400 Systolic blood pressure 138 mm[Hg] Dr. Marlon Shepherd DO Work Phone: [facility] 09-18-2024 08:37-0400 Body height 172.[address] Marlon Shepherd DO Work Phone: [facility] 09-18-2024 08:37-0400 Body mass index (BMI) [Ratio] 29.9 kg/m2 Dr. Marlon Shepherd DO Work Phone: [facility] 09-18-2024 08:37-0400 Body weight 89.[address] Marlon Shepherd DO Work Phone: [facility] 09-18-2024 08:37-0400 Diastolic blood pressure 82 mm[Hg] Dr. Marlon Shepherd DO Work Phone: [facility] 09-18-2024 08:37-0400 Heart rate 80 /min Dr. Marlon Shepherd DO Work Phone: [facility] 09-18-2024 08:37-0400 Systolic blood pressure 124 mm[Hg] Dr. aMrlon Shepherd DO Work Phone: [facility] 08-23-2024 08:31-0400 Body height 172.[address] Marlon Shepherd DO Work Phone: [facility] 08-23-2024 08:31-0400 Body mass index (BMI) [Ratio] 29.6 kg/m2 Dr. Marlon Shepherd DO Work Phone: [facility] 08-23-2024 08:31-0400 Body weight 88.[address] Marlon Shepherd DO Work Phone: [facility] 08-23-2024 08:31-0400 Diastolic blood pressure 85 mm[Hg] Dr. Marlon Shepehrd DO Work Phone: [facility] 08-23-2024 08:31-0400 Heart rate 80 /min Dr. Marlon Shepherd DO Work Phone: [facility] 08-23-2024 08:31-0400 Systolic blood pressure 137 mm[Hg] Dr. Marlon Shepherd DO Work Phone: [facility] 07-26-2024 08:15-0400 Body height 172.[address] Marlon Shepherd DO Work Phone: [facility] 07-26-2024 08:15-0400 Body mass index (BMI) [Ratio] 30.1 kg/m2 Dr. Marlon Shepherd DO Work Phone: [facility] 07-26-2024 08:15-0400 Body weight 89.[address] Marlon Shepherd DO Work Phone: [facility] 07-26-2024 08:15-0400 Diastolic blood pressure 82 mm[Hg] Dr. Marlon Shepherd DO Work Phone: [facility] 07-26-2024 08:15-0400 Heart rate 90 /min Dr. Marlon Shepherd DO Work Phone: [facility] 07-26-2024 08:15-0400 Systolic blood pressure 132 mm[Hg] Dr. Marlon Shepherd DO Work Phone: [facility] 05-31-2024 11:27-0400 Body mass index (BMI) [Ratio] 30.3 kg/m2 Dr. Marlon Shepherd DO Work Phone: [facility] 05-31-2024 11:27-0400 Body weight 90.[address] Marlon Shepherd DO Work Phone: [facility] 05-31-2024 11:27-0400 Diastolic blood pressure 87 mm[Hg] Dr. Marlon Shepherd DO Work Phone: [facility] 05-31-2024 11:27-0400 Heart rate 77 /min Dr. Marlon Shepherd DO Work Phone: [facility] 05-31-2024 11:27-0400 Systolic blood pressure 128 mm[Hg] Dr. Marlon Shepherd DO Work Phone: [facility] 05-31-2024 10:52-0400 Body mass index (BMI) [Ratio] 29.7 kg/m2 Dr. Marlon Shepherd DO Work Phone: [facility] 05-31-2024 10:52-0400 Body weight 88.[address] Marlon Shepherd DO Work Phone: [facility] 05-31-2024 10:52-0400 Diastolic blood pressure 85 mm[Hg] Dr. Marlon Shepherd DO Work Phone: [facility] 05-31-2024 10:52-0400 Heart rate 97 /min Dr. Marlon Shepherd DO Work Phone: [facility] 05-31-2024 10:52-0400 Systolic blood pressure 137 mm[Hg] Dr. Marlon Shepherd DO Work Phone: [facility] 05-31-2024 09:46-0400 Body temperature 98.3 [degF] Dr. Marlon Shepherd DO Work Phone: [facility] 05-31-2024 09:46-0400 Diastolic blood pressure 80 mm[Hg] Dr. Marlon Shepherd DO Work Phone: [facility] 05-31-2024 09:46-0400 Heart rate 100 /min Dr. Marlon Shepherd DO Work Phone: [facility] 05-31-2024 09:46-0400 SaO2% (BldA) [Mass fraction] 96 % Dr. Marlon Shepherd DO Work Phone: [facility] 05-31-2024 09:46-0400 Systolic blood pressure 124 mm[Hg] Dr. Marlon Shepherd DO Work Phone: [facility] 05-01-2024 10:43-0500 Diastolic blood pressure 84 mm[Hg] Dr. Marlon Shepherd DO Work Phone: [facility] 05-01-2024 10:43-0500 Heart rate 94 /min Dr. Marlon Shepherd DO Work Phone: [facility] 05-01-2024 10:43-0500 Systolic blood pressure 129 mm[Hg] Dr. Marlon Shepherd DO Work Phone: [facility] 05-01-2024 10:38-0500 Body mass index (BMI) [Ratio] 30.6 kg/m2 Dr. Marlon Shepherd DO Work Phone: [facility] 05-01-2024 10:38-0500 Body weight 91.[address] Marlon Shepherd DO Work Phone: [facility] 03-29-2024 10:41-0500 Diastolic blood pressure 81 mm[Hg] Dr. Marlon Shepherd DO Work Phone: [facility] 03-29-2024 10:41-0500 Heart rate 90 /min Dr. Marlon Shepherd DO Work Phone: [facility] 03-29-2024 10:41-0500 Systolic blood pressure 115 mm[Hg] Dr. Marlon Shepherd DO Work Phone: [facility] 03-29-2024 10:34-0500 Body mass index (BMI) [Ratio] 29.7 kg/m2 Dr. Marlon Shepherd DO Work Phone: [facility] 03-29-2024 10:34-0500 Body weight 88.[address] Marlon Shepherd DO Work Phone: [facility] 03-22-2024 16:27-0500 Body height 171.5 cm Marlon Presley SIDEROGRAPHER-[employer]SEMBLER Work Phone: 1(389)329-305745 [place] [address] 03-22-2024 16:27-0500 Body mass index (BMI) [Ratio] 29.32 kg/m2 Marlon Presley SIDEROGRAPHER-[employer]SEM[employer]ER Work Phone: 7(744)599-000550 [address] 03-22-2024 16:27-0500 Body temperature 98.01 [degF] Marlon Gilta SIDEROGRAPHER-[employer]SEMBLER Work Phone: 5(033)685-667550 [address] 03-22-2024 16:27-0500 Body weight 86.18 kg Marlon Presley SIDEROGRAPHER-[employer]SEM[employer]ER Work Phone: 4(605)280-[address] [place] [address] 03-22-2024 16:27-0500 Diastolic blood pressure 79 mm[Hg] Marlon Presley SIDEROGRAPHER-[employer] ASSEMBLER Work Phone: 5(431)811-646550 [address] 03-22-2024 16:27-0500 Heart rate 92 /min Marlon Presley SIDEROGRAPHER-[employer]ER Work Phone: 9(769)215-757358 [place] [address] 03-22-2024 16:27-0500 Respiratory rate 18 /min Marlon Presley SIDEROGRAPHER-[employer]ER Work Phone: 9(654)994-378058 [place] [address] 03-22-2024 16:27-0500 SaO2% (BldA) [Mass fraction] 98 % Marlon Presley SIDEROGRAPHER-[employer]SEMBLER Work Phone: 0(765)052-484150 [address] 03-22-2024 16:27-0500 Systolic blood pressure 132 mm[Hg] Marlon Presley SIDEROGRAPHER-[employer]ER Work Phone: 7(870)[phone] [place] [address] 03-05-2024 11:40-0500 Body mass index (BMI) [Ratio] 29.2 kg/m2 Dr. Marlon Shepherd DO Work Phone: [facility] 03-05-2024 11:40-0500 Body temperature 98.1 [degF] Dr. Marlon Shepherd DO Work Phone: [facility] 03-05-2024 11:40-0500 Body weight 87.[address] Marlon Shepherd DO Work Phone: [facility] 03-05-2024 11:40-0500 Diastolic blood pressure 84 mm[Hg] Dr. Marlon Shepherd DO Work Phone: [facility] 03-05-2024 11:40-0500 Heart rate 117 /min Dr. Marlon Shepherd DO Work Phone: [facility] 03-05-2024 11:40-0500 SaO2% (BldA) [Mass fraction] 98 % Dr. Marlon Shepherd DO Work Phone: [facility] 03-05-2024 11:40-0500 Systolic blood pressure 132 mm[Hg] Dr. Marlon Shepherd DO Work Phone: [facility] 03-05-2024 10:00-0500 Body mass index (BMI) [Ratio] 29.2 kg/m2 Dr. Marlon Shepherd DO Work Phone: [facility] 03-05-2024 10:00-0500 Body weight 87.[address] Marlon Shepherd DO Work Phone: [facility] 03-05-2024 10:00-0500 Diastolic blood pressure 90 mm[Hg] Dr. Marlon Shepherd DO Work Phone: [facility] 03-05-2024 10:00-0500 Heart rate 102 /min Dr. Marlon Shepherd DO Work Phone: [facility] 03-05-2024 10:00-0500 Systolic blood pressure 143 mm[Hg] Dr. Marlon Shepherd DO Work Phone: [facility] 02-23-2024 14:24-0500 Body mass index (BMI) [Ratio] 29.95 kg/m2 Marlon Sudha SIDEROGRAPHER[employer] ASSEMBLER Work Phone: [facility] 02-23-2024 14:24-0500 Body temperature 98.6 [degF] Marlon Sudha SIDEROGRAPHER[employer]SEMBLER Work Phone: [facility] 02-23-2024 14:24-0500 Body weight 89.36 kg Marlon Sudha SIDEROGRAPHER-[employer]SEM[employer]ER Work Phone: [facility] 02-23-2024 14:24-0500 Diastolic blood pressure 67 mm[Hg] Marlon Sudha SIDEROGRAPHER-[employer]SEMBLER Work Phone: [facility] 02-23-2024 14:24-0500 Heart rate 124 /min Marlon Sudha SIDEROGRAPHER-[employer] ASSEMBLER Work Phone: [facility] 02-23-2024 14:24-0500 Respiratory rate 16 /min Marlon Sudha SIDEROGRAPHER-[employer] ASSEMBLER Work Phone: [facility] 02-23-2024 14:24-0500 SaO2% (BldA) [Mass fraction] 97 % Marlon Sudha SIDEROGRAPHER-[employer] ASSEMBLER Work Phone: 4(796)862-692945 [place] [address] 02-23-2024 14:24-0500 Systolic blood pressure 124 mm[Hg] Marlon Sudha SIDEROGRAPHER-[employer] ASSEMBLER Work Phone: 1(958)[phone] [place] [address] 06-17-2023 11:42-0400 Body height 172.7 cm Marlon Sudha SIDEROGRAPHER[employer]ER Work Phone: [facility] 06-17-2023 11:42-0400 Body mass index (BMI) [Ratio] 29.97 kg/m2 Marlon Sudha SIDEROGRAPHER[employer]BLER Work Phone: [facility] 06-17-2023 11:42-0400 Body temperature 97.5 [degF] Marlon Sudha SIDEROGRAPHER[employer] ASSEMBLER Work Phone: [facility] 06-17-2023 11:42-0400 Body weight 89.4 kg Marlon Sudha SIDEROGRAPHER-[employer]ER Work Phone: [facility] 06-17-2023 11:42-0400 Diastolic blood pressure 85 mm[Hg] Marlon Sudha SIDEROGRAPHER[employer]SEMBLER Work Phone: [facility] 06-17-2023 11:42-0400 Heart rate 73 /min Marlon Sudha SIDEROGRAPHER-[employer]BLER Work Phone: [facility] 06-17-2023 11:42-0400 Respiratory rate 16 /min Marlon Sudha SIDEROGRAPHER[employer]ER Work Phone: [facility] 06-17-2023 11:42-0400 SaO2% (BldA) [Mass fraction] 100 % Marlon Sudha SIDEROGRAPHER[employer]ER Work Phone: [facility] 06-17-2023 11:42-0400 Systolic blood pressure 124 mm[Hg] Marlon Sudha SIDEROGRAPHER[employer] ASSEMBLER Work Phone: [facility] 06-14-2023 08:39-0400 Body height 172.7 cm Marlon Oberhauser DO Work Phone: [facility] 06-14-2023 08:39-0400 Body mass index (BMI) [Ratio] 29.95 kg/m2 Marlon Oberhauser DO Work Phone: [facility] 06-14-2023 08:39-0400 Body weight 89.36 kg Marlon Oberhauser DO Work Phone: [facility] 06-14-2023 08:39-0400 Diastolic blood pressure 81 mm[Hg] Marlon Oberhauser DO Work Phone: [facility] 06-14-2023 08:39-0400 Heart rate 83 /min Marlon Oberhauser DO Work Phone: [facility] 06-14-2023 08:39-0400 Systolic blood pressure 127 mm[Hg] Marlon Oberhauser DO Work Phone: [facility] 06-10-2022 09:37-0400 Body height 172.7 cm Marlon Oberhauser DO Work Phone: [facility] 06-10-2022 09:37-0400 Body mass index (BMI) [Ratio] 30.41 kg/m2 Marlon Oberhauser DO Work Phone: [facility] 06-10-2022 09:37-0400 Body weight 90.72 kg Marlon Oberhauser DO Work Phone: [facility] 06-10-2022 09:37-0400 Diastolic blood pressure 83 mm[Hg] Marlon Oberhauser DO Work Phone: [facility] 06-10-2022 09:37-0400 Heart rate 74 /min Marlon Oberhauser DO Work Phone: [facility] 06-10-2022 09:37-0400 Systolic blood pressure 126 mm[Hg] Marlon Oberhauser DO Work Phone: [facility] 07-01-2021 10:59-0400 Body height 172.72 cm Marlon L Oberhauser Work Phone: [facility] Work Phone: 07-01-2021 10:59-0400 Body mass index (BMI) [Ratio] 30.29 kg/m2 Marlon L Oberhauser Work Phone: [facility] Work Phone: 07-01-2021 10:59-0400 Body surface area Derived from formula 2.04 m2 Marlon L Oberhauser Work Phone: [facility] Work Phone: 07-01-2021 10:59-0400 Body weight 90.36 kg Marlon L Oberhauser Work Phone: [facility] Work Phone: 07-01-2021 10:59-0400 Diastolic blood pressure 80 mm[Hg] Marlon L Oberhauser Work Phone: [facility] Work Phone: 07-01-2021 10:59-0400 Heart rate 82 /min Marlon Ying Oberhauser Work Phone: [facility] Work Phone: 07-01-2021 10:59-0400 Systolic blood pressure 120 mm[Hg] Marlon Ying Oberhauser Work Phone: [facility] Work Phone: 03-21-2021 11:58-0500 Body height 170 cm Marlon Oberhauser Other Phone: [facility] 03-21-2021 11:58-0500 Body temperature 97.7 [degF] Marlon Oberjonathaner Other Phone: [facility] 03-21-2021 11:58-0500 Diastolic blood pressure 95 mm[Hg] Marlon Oberhauser Other Phone: [facility] 03-21-2021 11:58-0500 Heart rate 96 /min Marlon Longoriajonathandanis Other Phone: [facility] 03-21-2021 11:58-0500 Systolic blood pressure 145 mm[Hg] Marlon Oberhauser Other Phone: [facility] Encounters Encounter Date Encounter Type Care Provider Facility Start: 11-02-2024 ambulatory Taylor Fagan Facility :[facility] Start: 10-31-2024 End: 10-31-2024 Patient encounter procedure Taylor FISCHER -[facility] Work Phone: Start: 10-31-2024 End: 10-31-2024 Patient encounter status Taylor FISCHER [facility] Start: 10-31-2024 End: 10-31-[address] Marlon Shepherd DO Work Phone: -[facility] Start: 09-18-2024 End: 09-18-2024 Patient encounter procedure Taylor Fagan DATA WAREHOUSING ARCHITECT-C -[facility] Work Phone: Start: 09-18-2024 End: 09-18-[address] Marlon Shepherd DO Work Phone: -[facility] Start: 08-23-2024 End: 08-23-2024 Patient encounter procedure Taylor Fagan DATA WAREHOUSING ARCHITECT-C -[facility] Work Phone: Start: 08-23-2024 End: 08-23-[address] Marlon Shepherd DO Work Phone: [facility] Work Phone: Start: 07-26-2024 End: 07-26-2024 Patient encounter procedure Taylor Fagan NP-C -[facility] Work Phone: Start: 07-26-2024 End: 07-26-[address] Marlon Shepherd DO Work Phone: [facility] Work Phone: Start: 06-27-2024 End: 06-27-2024 Patient encounter procedure Taylor Fagan DATA WAREHOUSING ARCHITECT-C -[facility] Work Phone: Start: 06-27-2024 End: 06-27-2024 ambulatory Taylor Fagan Facility:[facility] Start: 05-31-2024 End: 05-31-2024 Patient encounter procedure Taylor Fagan DATA WAREHOUSING ARCHITECT-C -[facility] Work Phone: Start: 05-31-2024 End: 05-31-2024 ambulatory Taylor Fagan Facility:[facility] Start: 05-31-2024 End: 05-31-2024 Patient encounter procedure Perry Kimble MD -[facility] Work Phone: Start: 05-31-2024 End: 05-31-[address] Marlon Shepherd DO Work Phone: [facility] Work Phone: Start: 05-31-2024 End: 05-31-2024 ambulatory Perry PANIAGUA Facility:[facility] Start: 05-02-2024 End: 05-02-2024 ambulatory Taylor Fagan Facility:[facility] Start: 05-02-2024 End: 05-02-2024 Non-patient / Non-visit Dr. Seema Parks MD -[facility] Work Phone: Start: 05-02-2024 End: 05-02-2024 Patient encounter procedure Taylor Fagan NP-[facility] Work Phone: Start: 05-01-2024 End: 05-01-2024 Patient encounter procedure Taylor FISCHER -[facility] Work Phone: Start: 05-01-2024 End: 05-02-2024 ambulatory Taylor Fagan Facility:[facility] Start: 03-29-2024 End: 03-29-2024 Patient encounter procedure Taylor FISCHER -[facility] Work Phone: Start: 03-29-2024 End: 03-29-2024 ambulatory Marlon Shepherd Facility:[facility] Start: 03-22-2024 End: 03-22-2024 Patient encounter procedure Marlon Presley SIDEROGRAPHER[employer]BLER Work Phone: [facility] Comment on above: Cellulitis of right breast (Primary Dx) Start: 03-22-2024 End: 03[facility] Start: 03-05-2024 End: 03-05-2024 Patient encounter procedure Brannon Pacheco PA -[facility] Work Phone: Start: 03-05-2024 End: 03-05-2024 ambulatory Marlon Shepherd Facility:[facility] Start: 03-05-2024 End: 03-05-2024 Patient encounter procedure Taylor RODRIGUEZC -[facility] Work Phone: Start: 03-05-2024 End: 03-05-2024 ambulatory [facility] Facility:[facility] Start: 03-05-2024 End: 03-05-2024 ambulatory [facility] Facility:[facility] Start: 02-23-2024 End: 02-23-2024 Patient encounter procedure Marlon Presley SIDEROGRAPHER[employer] ASSEMBLER Work Phone: [facility] Comment on above: Acute bronchitis, un specified organism (Primary Dx) Start: 02-23-2024 End: 02-23-2024 ambulatory [facility] Start: 02-07-2024 End: 02-07-2024 ambulatory [facility] Facility:[facility] Start: 01-11-2024 End: 01-11-2024 ambulatory [facility] Facility:[facility] Start: 12-14-2023 End: 12-14-2023 ambulatory [facility] Facility:[facility] Start: 12-06-2023 ambulatory [facility] Fac[facility] ty:[facility] Start: 11-03-2023 End: 11-03-2023 ambulatory [facility] Facility:[facility] Start: 06-17-2023 End: 06-17-2023 Patient encounter procedure Marlon Presley SIDEROGR[employer]HER[employer] ASSEMBLER Work Phone: [facility] Comment on above: Acute pharyngitis, u nspecified etiology (Primary Dx); Acute upper respiratory infection; Dizziness Start: 06-17-2023 End: 06-17-2023 ambulatory [facility] Start: 06-14-2023 End: 06-14-2023 ambulatory [facility] Start: 06-14-2023 End: 06-14-2023 Periodic preventive med est patient 18-39 yrs Marlon Ying Vonjonathan DO Work Phone: [facility] Comment on above: Migraine with aura a nd without status migrainosus, not intractable (Primary Dx); Moderate persistent reactive airway disease without complication; BMI 29.0-29.9,adult Start: 02-08-2023 End: 02-08-2023 ambulatory [facility] Work Phone: Start: 02-08-2023 End: 02-08-2023 Patient encounter procedure [facility] Start: 06-11-2022 End: 06-12-2022 [facility] Start: 06-11-2022 End: 06-12-2022 Encounter for general adult medical examination without abnormal findings [facility] Start: 06-10-2022 Encounter for genera l adult medical examination without abnormal findings MARLON SHEPHERD [facility] Start: 06-10-2022 End: 06-10-2022 Office outpatient visit 25 minutes Marlon Ying Vonjonathandanis DO Work Phone: [facility] Comment on above: Healthcare maintenan ce (Primary Dx); Screening for lipid disorders; Other fatigue; Irregular periods; Unable to lose weight Start: 06-10-2022 End: 06-10-2022 Patient encounter status Marlon Perez Voncastro DO Work Phone: [facility] Work Phone: Start: 07-01-2021 Office outpatient vi sit 25 minutes Marlon Ying Vonjonathaner Work Phone: [facility] Work Phone: Start: 03-21-2021 End: 03-21-2021 Emergency department patient visit [facility] Start: 03-20-2021 AUDIT Marlon Ying Oberha user Work Phone: [facility] Work Phone: Start: 01-15-2021 AUDIT Marlon Ying Oberha user Work Phone: [facility] Work Phone: Start: 06-16-2018 End: 06-17-2018 Patient encounter procedure Marlon Ying Vonjonathandanis Facility:[facility] Start: 06-16-2018 Patient encounter procedure Marlon Ying Cora [facility] Start: 05-26-2018 End: 05-27-2018 Patient encounter procedure Marlon Shepherd [facility] Start: 05-09-2018 End: 05-09-2018 [facility] Procedures Date Procedure Procedure Detail Performing Clinician Start: 05-31-2024 X-ray of unilateral ribs, two views without x-ray of chest Dr. Marlon Shepherd DO Work Phone: Start: 05-02-2024 Measurement of renal function Dr. Marlon Shepherd DO Work Phone: Comment on above: GFR Calc Start: 05-02-2024 Vitamin D, 25-hydrox y measurement Dr. Marlon Shepherd DO Work Phone: Comment on above: Vitamin D 25(OH) Sta tus Range Deficiency <20 ng/mL (50nmol/L) Insufficiency 20 - 30 ng/mL (50 - 75 nmol/L) Sufficiency 30 - 100 ng/mL (75 - 250 nmol/L) Toxicity >100 ng/mL (>250 nmol/L) Start: 03-05-2024 X-ray of chest, PA a nd lateral views Dr. Marlon Shepherd DO Work Phone: Start: 06-17-2023 POCT GROUP A STREPTO COCCUS, PCR MARLON SHEPHERD Start: 06-17-2023 Iadna streptococcus group a amplified probe tq Marlon Presley SIDEROGRAPHER-[employer]LING [employer] M[employer] ASSEMBLER Work Phone: Start: 06-14-2023 FOLLOW UP IN FAMILY MEDICINE MARLON SHEPHERD Start: 06-11-2022 CBC W Auto Different ial panel - Blood MARLON SHEPHERD Start: 06-11-2022 Comprehensive metabo lic 2000 panel - Serum or Plasma MARLON SHEPHERD Start: 06-11-2022 Cyanocobalamin vitamin b-12 MARLON SHEPHERD Start: 06-11-2022 FOLLICLE STIMULATING HORMONE MARLON SHEPHERD Start: 06-11-2022 Hemoglobin A1c/Hemoglobin.total in Blood MARLON SHEPHERD Start: 06-11-2022 Lipid panel MARLON REGALADOUSER Start: 06-11-2022 LUTEINIZING HORMONE DESTINI AN CORA Start: 06-11-2022 TSH WITH REFLEX TO F REE T4 IF ABNORMAL MARLON SHEPHERD Start: 06-11-2022 VITAMIN D 25-HYDROXY,TOTAL MARLON SHEPHERD Start: 06-11-2022 Lipid 1996 panel - S rah or Plasma Marlon Shepherd DO Work Phone: section Marlon L Obe rhauser Work Phone: Cholecystectomy Marlon L Von castro Work Phone: Extraction of wisdom tooth Devang Perez Oberhausdanis Work Phone: Plan of Treatment Date Care Activity Detail Author Start: 2034 Zoster Vaccines (1 of 2) Zoste r Vaccines (1 of 2) [facility] Start: 06-12-2027 Lipid panel Lipid Panel [facility] Start: 07-01-2025 DTaP/Tdap/Td Vaccine s (3 - Td or Tdap) DTaP/Tdap/Td Vaccines (3 - Td or Tdap) [facility] Start: 07-01-2025 DTaP/Tdap/Td Vaccine s (4 - Td or Tdap) DTaP/Tdap/Td Vaccines (4 - Td or Tdap) [facility] Start: 06-11-2025 Diabetes mellitus screening Diabetes Screening [facility] Start: 06-14-2024 Yearly Adult Physical Yearly Adult P hysical [facility] Start: 06-13-2024 End: 06-13-2024 Patient encounter procedure 06/13/2024 8:40 AM EDT Office Visit [facility] [address] [place] [address] Marlon Shepherd DO [address] [facility] [place] [address] [facility] Start: 11-13-2023 COVID-19 Vaccine () COVID-19 Vaccine () [facility] Start: 11-13-2023 Influenza vaccination [facility] Start: 06-10-2022 End: 06-11-2023 25-hydroxyvitamin D3 [Mass/volume] in Serum or Plasma Vitamin D 25-Hydroxy,Total Lab Routine Other fatigue Expected: 06/10/2022 (Approximate), Expires: 06/11/2023 [facility] Work Phone: Comment on above: Expected: 06/10/2022 (Approximate), Expires: 06/11/2023 Start: 06-10-2022 End: 06-11-2023 CBC W Auto Differential panel - Blood CBC and Auto Differential Lab Routine Healthcare maintenance Expected: 06/10/2022 (Approximate), Expires: 06/11/2023 [facility] Work Phone: Comment on above: Expected: 06/10/2022 (Approximate), Expires: 06/11/2023 Start: 06-10-2022 End: 06-11-2023 Cobalamin (Vitamin B12) [Mass/volume] in Serum or Plasma Vitamin B12 Lab Routine Other fatigue Expected: 06/10/2022 (Approximate), Expires: 06/11/2023 [facility] Work Phone: Comment on above: Expected: 06/10/2022 (Approximate), Expires: 06/11/2023 Start: 06-10-2022 End: 06-11-2023 Comprehensive metabolic 2000 panel - Serum or Plasma Comprehensive Metabolic Panel Lab Routine Healthcare maintenance Expected: 06/10/2022 (Approximate), Expires: 06/11/2023 [facility] Service Area Work Phone: Comment on above: Expected: 06/10/2022 (Approximate), Expires: 06/11/2023 Start: 06-10-2022 End: 06-11-2023 Follitropin [Units/volume] in Serum or Plasma FSH Lab Routine Irregular periods Expected: 06/10/2022 (Approximate), Expires: 06/11/2023 [facility] Work Phone: Comment on above: Expected: 06/10/2022 (Approximate), Expires: 06/11/2023 Start: 06-10-2022 End: 06-11-2023 Hemoglobin A1c/Hemoglobin.total in Blood Hemoglobin A1C Lab Routine Unable to lose weight Expected: 06/10/2022 (Approximate), Expires: 06/11/2023 [facility] Work Phone: Comment on above: Expected: 06/10/2022 (Approximate), Expires: 06/11/2023 Start: 06-10-2022 End: 06-11-2023 Lipid 1996 panel - Serum or Plasma Lipid Panel Lab Routine Screening for lipid disorders Expected: 06/10/2022 (Approximate), Expires: 06/11/2023 [facility] Work Phone: Comment on above: Expected: 06/10/2022 (Approximate), Expires: 06/11/2023 Start: 06-10-2022 End: 06-11-2023 Lutropin [Units/volume] in Serum or Plasma Luteinizing hormone Lab Routine Irregular periods Expected: 06/10/2022 (Approximate), Expires: 06/11/2023 [facility] Work Phone: Comment on above: Expected: 06/10/2022 (Approximate), Expires: 06/11/2023 Start: 06-10-2022 End: 06-11-2023 TSH with reflex to Free T4 if abnormal TSH with reflex to Free T4 if abnormal Lab Routine Other fatigue Expected: 06/10/2022 (Approximate), Expires: 06/11/2023 [facility] Work Phone: Comment on above: Expected: 06/10/2022 (Approximate), Expires: 06/11/2023 Start: 11-12-2021 Influenza vaccination Influenza Vacc ine (#1) [facility] Start: 09-21-2017 DTaP/Tdap/Td Vaccine s (2 - Td or Tdap) DTaP/Tdap/Td Vaccines (2 - Td or Tdap) [facility] Start: 2005 Screening for malign ant neoplasm of cervix [facility] Start: 2003 Hepatitis B Vaccines (1 of 3 - 19+ 3-dose series) Hepatitis B Vaccines (1 of 3 - 19+ 3-dose series) [facility] Start: 2003 Pneumococcal Vaccine : Pediatrics and At-Risk Adult Patients (1 of 2 - PCV) Pneumococcal Vaccine: Pediatrics and At-Risk Adult Patients (1 of 2 - PCV) [facility] Start: 2002 Hepatitis C screening Hepatitis C [facility] Start: 1997 Varicella vaccination Varicell a Vaccines (1 of 2 - 13+ 2-dose series) [facility] Start: 1990 Pneumococcal Vaccine : Pediatrics (0 to 5 Years) and At-Risk Patients (6 to 64 Years) (1 - PCV) Pneumococcal Vaccine: Pediatrics (0 to 5 Years) and At-Risk Patients (6 to 64 Years) (1 - PCV) [facility] Start: 1990 Pneumococcal Vaccine : Pediatrics (0 to 5 Years) and At-Risk Patients (6 to 64 Years) (1 of 2 - PCV) Pneumococcal Vaccine: Pediatrics (0 to 5 Years) and At-Risk Patients (6 to 64 Years) (1 of 2 - PCV) [facility] Start: 1985 MMR Vaccines (1 of 1 - Standard series) MMR Vaccines (1 of 1 - Standard series) [facility] Start: 1985 Varicella vaccination Varicell a Vaccines (1 of 2 - 2-dose childhood series) [facility] Start: 1984 COVID-19 Vaccine (#1) COVID-19 Vacci ne (#1) [facility] Start: 1984 Hepatitis B Vaccines (1 of 3 - 3-dose series) Hepatitis B Vaccines (1 of 3 - 3-dose series) [facility] Start: 1984 HIV screening HIV Screening [facility] Start: 1984 Lipid panel Lipid Panel [facility] Start: 1984 Yearly Adult Physical Yearly Adult P hysical [facility] MG Breast - bilatera l Diagnostic [facility] Breast limited [facility] Immunizations Immunization Date Immunization Notes Care Provider Fa cility 07-02-2015 tetanus toxoid, reduced diphtheria toxoid, and acellular pertussis vaccine, adsorbed [facility] 01-01-2015 Influenza virus vaccine [facility] 12-21-2013 influenza, seasonal, injectable Marlon Shepherd Work Phone: [facility] Work Phone: 12-21-2013 influenza virus vaccine, unspecified formulation Marlon Presley SIDEROGRAPHER-[employer] ASSEMBLER Work Phone: [facility] Work Phone: 11-30-2013 tetanus toxoid, reduced diphtheria toxoid, and acellular pertussis vaccine, adsorbed Marlon Shepherd Work Phone: [facility] Work Phone: Payers Date Payer Category Payer Unknown [id number] 2023 Self-pay [id number] 2022 [employer] [place] [facility] Member Subscriber Plan / Payer (Effective 2022-Present) Name: Stefani Santos Relation to Subscriber: Self Name: Stefani Santos Payer ID: [id number] (NAIC) Type: Not on file Address: [place] [id number] 2018 Unknown 2014 Unknown [id number] 2012 Unknown [id number] 1984 Unknown [id number] 2..840.1.750548.3.579.2. 7 1984 Unknown [id number] 2..840.1.294815.3.579.2. 7 1984 Unknown [id number] 2..840.1.093771.3.579.2. 717 1984 Unknown [id number] 2.16.840.1.811980.3.579.2. 717 1984 Unknown [id number] 2.16.840.1.047931.3.579.2. 1245 1984 Unknown [id number] 2.16.840.1.197934.3.579.2. 1244 1984 Unknown [id number] 2.16.840.1.571987.3.579.2. 1243 1984 Unknown [id number] 2.16.840.1.273440.3.579.2. 1243 1984 Unknown [id number] 2.16.840.1.644761.3.579.2. 1243 Unknown [id number] 2.840.1.228573.3.579.2. 462 Unknown [id number] 2.840.1.975841.3.579.2. 462 Unknown [id number] 2.16840.1.191567.3.579.2. 462 Unknown [id number] 2.16840.1.996821.3.579.2. 462 Unknown [id number] 2.16.840.1.492337.3.579.2. 462 Unknown [id number] 2.840.1.624654.3.579.2. 462 Unknown [id number] 2.16840.1.937651.3.579.2. 462 Unknown [id number] 2.16.840.1.334475.3.579.2. 462 Unknown [id number] 2.16.840.1.788712.3.579.2. 462 Unknown [id number] 2.16.840.1.396954.3.579.2. 462 Unknown [id number] 2.16840.1.114930.3.579.2. 462 Unknown [id number] 2.16.840.1.920845.3.579.2. 462 Unknown [id number] 2.16.840.1.962561.3.579.2. 462 Unknown [id number] 2.16.840.1.707015.3.579.2. 462 Unknown [id number] 2.16.840.1.352948.3.579.2. 462 Unknown [id number] 2.16.840.1.761308.3.579.2. 462 Unknown [id number] 2.16.840.1.562987.3.579.2. 462 Unknown [id number] 2.16.840.1.812214.3.579.2. 462 Unknown [id number] 2.16.840.1.751486.3.579.2. 462 Unknown [id number] 2.16.840.1.043965.3.579.2. 462 Unknown [id number] 2.16.840.1.147757.3.579.2. 462 Social History Date Type Detail Facility Start: 06-10-2022 End: 06-14-2023 Alcohol use Alcohol use [facility] Work Phone: Start: 09-15-2022 Tobacco smokin g consumption unknown [facility] Start: 1985 Sex Assigned At Female [facility] Start: 06-10-2022 Tobacco smoking status NHIS Never smoked tobacco [facility] Work Phone: Start: 06-10-2022 End: 02-24-2024 Tobacco use and exposure Smokeless tobacco non-user [facility] Work Phone: Start: 06-14-2023 End: 03-22-2024 Alcohol intake Current drinker of alcohol (finding) [facility] Work Phone: Start: 06-10-2022 End: 06-14-2023 Tobacco use panel [facility] Work Phone: Start: 1985 [facility] Start: 05-31-2022 End: 03-22-2024 Exposure to SARS-CoV-2 (event) Not sure [facility] Start: 02-24-2024 End: 09-18-2024 Tobacco smoking status NHIS Ex-smoker [facility] Work Phone: History of tobacco use Current smoker [facility] Work Phone: History of tobacco use Cigarette Smoker [facility] Work Phone: Start: 06-07-2024 Sex Female (finding) [facility] Clinical Notes 05-07-2020 to 07-26-2024 Note Date & Type Note Facility 07-26-2024 Evaluation note Diagnosis Onset Date Resolution BMI 29.0-29.9,adult acute July 122024 8:07am Borderline high cholesterol acute July 26, 2024 8:07am Elevated fasting glucose acute July 26, 2024 8:07am Fatigue acute July 26, 2024 8:07am Metabolic syndrome acute July 262024 8:07am BMI 29.0-29.9,adult acute August 23, 2024 8:20am Borderline high cholesterol acute August 23, 2024 8:20am Elevated fasting glucose acute August 23, 2024 8:20am Fatigue acute August 23 8:20am Metabolic syndrome acute August 122024 8:20am BMI 29.0-29.9,adult acute September 18, 2024 8:32am Borderline high cholesterol acute September 18, 2024 8:32am Elevated fasting glucose acute September 18, 2024 8:32am Fatigue acute September 18, 2024 8:32am Metabolic syndrome acute September 182024 8:32am Obesity, unspecified acute September 18, 2024 8:32am Pelvic pain acute September 18 8:32am Encounter for routine gynecological examination noneactive October 31 12:56pm [facility] Work Phone: 1(245) 377-727403-20-2025 Evaluation note* Diagnosis Onset Date Resolution Status Admit Date Chest wall contusion acute Andrew h 20th, 2025 9:21am BMI 29.0-29.9,adult acute May 31, 2024 10:46am Borderline high cholesterol acute May 31, 2024 10:46am Elevated fasting glucose acute May 31, 2024 10:46am Fatigue acute May 31 10:46am Metabolic syndrome acute May 31, 2024 10:46am BMI 29.0-29.9,adult acute July 122024 8:07am Borderline high cholesterol acute July 26, 2024 8:07am Elevated fasting glucose acute July 26, 2024 8:07am Fatigue acute July 26, 2024 8:07am Metabolic syndrome acute July 262024 8:07am BMI 29.0-29.9,adult acute August 23, 2024 8:20am Borderline high cholesterol acute August 23, 2024 8:20am Elevated fasting glucose acute August 23, 2024 8:20am Fatigue acute August 23 8:20am Metabolic syndrome acute August 122024 8:20am BMI 29.0-29.9,adult acute September 18, 2024 8:32am Borderline high cholesterol acute September 18, 2024 8:32am Elevated fasting glucose acute September 18, 2024 8:32am Fatigue acute September 18, 2024 8:32am Metabolic syndrome acute September 182024 8:32am Obesity, unspecified acute September 18, 2024 8:32am [facility] Work Phone: 1(602) 462-819003-20-2025 Radiology Diagnostic study note [facility] Imaging Services [address] [place] [address] [id number] Ribs Unil 2V No CXR MR#: [id number] Acct: [id number] Name: STEFANI SANTOS Rep #: [id number] : 1985 F 39 From: Valorie Ashraf MD PCP: Dr. Marlon Shepherd, DO Status: R EG CLI Study:Ribs Unil 2V No CXR Date of Exam: 05/31/24 Exam# [id number] Ordering Dr: Collette Kimble PA PA EXAM: XR Left Ribs, 2 Views CLINICAL INDICATION: RIB INJURY TECHNIQUE: Frontal and oblique views of the left ribs. COMPARISON: No relevant prior studies available. FINDINGS: LUNGS AND PLEURAL SPACES: Unremarkable as visualized. No consolidation. No pneumothorax. BONES/JOINTS: Unremarkable. No displaced rib fractures. RAD/Ribs Unil 2V No CXR IMPRESSION: No displaced rib fractures. Reading [facility] CC: ARCELIA Silva; Dr. Marlon Shepherd, DO ~ Hand Coper: Signed [facility]02-18-2025 Evaluation note* Diagnosis Onset Date Resolution Status Admit Date BMI 29.0-29.9,adult acute 2024 10:08am Borderline high cholesterol acute May 01, 2024 10:08am Elevated fasting glucose acute May 01, 2024 10:08am Fatigue acute May 01, 2024 10:08am Metabolic syndrome acute 2024 10:08am Chest wall contusion acute 2024 9:21am BMI 29.0-29.9,adult acute May 31, 2024 10:46am Borderline high cholesterol acute May 31, 2024 10:46am Elevated fasting glucose acute May 31, 2024 10:46am Fatigue acute May 31 10:46am Metabolic syndrome acute May 31, 2024 10:46am BMI 29.0-29.9,adult acute July 122024 8:07am Borderline high cholesterol acute July 26, 2024 8:07am Elevated fasting glucose acute July 26, 2024 8:07am Fatigue acute July 26, 2024 8:07am Metabolic syndrome acute July 262024 8:07am [facility] Work Phone: 1(149) 631-441601-16-2025 Evaluation note* Diagnosis Onset Date Resolution Status Admit Date BMI 29.0-29.9,adult acute 2024 10:19am Borderline high cholesterol acute March 29, 2024 10:19am Elevated fasting glucose acute March 29, 2024 10:19am Fatigue acute March 29, 2024 10:19am Metabolic syndrome acute 2024 10:19am BMI 30.0-30.9,adult resolved 2024 10:19am BMI 29.0-29.9,adult acute Febru shannon2024 10:08am Borderline high cholesterol acute May 01, 2024 10:08am Elevated fasting glucose acute May 01, 2024 10:08am Fatigue acute May 01, 2024 10:08am Metabolic syndrome acute Februa 2024 10:08am Chest wall contusion acute 2024 9:21am BMI 29.0-29.9,adult acute May 31, 2024 10:46am Borderline high cholesterol acute May 31, 2024 10:46am Elevated fasting glucose acute May 31, 2024 10:46am Fatigue acute May 31 10:46am Metabolic syndrome acute May 31, 2024 10:46am BMI 29.0-29.9,adult acute July 122024 8:07am Borderline high cholesterol acute July 26, 2024 8:07am Elevated fasting glucose acute July 26, 2024 8:07am Fatigue acute July 26, 2024 8:07am Metabolic syndrome acute July 262024 8:07am [facility] Work Phone: 1(360) 808-800201-09-2025 History of Present illness Narrative* BELLE Francis - 03/22/2024 5:00 PM EST [facility] BELLE Francis Visit Note - 03/22/2024 5:03 PM This note was generated with voice recognition software and may contain errors including spelling, grammar, syntax, and misrecognization of what was dictated. Patient: Stefani Santos, , 38 y.o., female PCP: Marlon Shepherd, DO ALLERGIES: No Known Allergies CURRENT MEDICATIONS: Current Outpatient Medications Medication Instructions albuterol 90 mcg/actuation inhaler 1-2 puffs, inhalation, Every 4 hours PRN azithromycin (Zithromax) 250 mg tablet Take 2 tablets (500 mg) on day 1, then 1 tablet daily on days 2 through 11 benzonatate (Tessalon) 200 mg capsule Take 1 capsule (200 mg) orally three times a day As Needed for cough clobetasol (Temovate) 0.05 % external solution Apply to any areas of psoriasis on the scalp or ears1x daily as needed ELDERBERRY FRUIT ORAL Take by mouth. levocetirizine (Xyzal) 5 mg tablet Every evening multivitamin tablet,chewable Chew. phentermine (Adipex-P) 37.5 mg tablet 37.5 mg orally daily; BMI 30 predniSONE (Deltasone) 10 mg tablet Take 6 tabs daily x1 day, then take 5 tabs daily x1 day, then take 4 tabs daily x1 day, then take 3 tabs daily x1 day, then take 2 tabs daily x1 day, then take 1 tab daily x1 day. Take with a meal. promethazine-DM (Phenergan-DM) 6.25-15 mg/5 mL syrup 5 mL, oral, Every 6 hours PRN, *caution - can cause drowsiness* sulfamethoxazole-trimethoprim (Bactrim DS) 800-160 mg tablet 1 tablet, oral, 2 times daily, Take with a meal. triamcinolone (Nasacort) 55 mcg nasal inhaler Administer into affected nostril(s). PAST MEDICAL HX: Patient Active Problem List Diagnosis Reactive airway disease ([facility]) Fatigue Healthcare maintenance BMI 29.0-29.9,adult SURGICAL HX: Past Surgical History: Procedure Laterality Date OTHER SURGICAL HISTORY 09/01/2018 Cholecystectomy OTHER SURGICAL HISTORY 09/01/2018 section OTHER SURGICAL HISTORY 09/01/2018 [place] tooth extraction FAMILY HX: No pertinent history. SOCIAL HX: reports that she has quit smoking. Her smoking use included cigarettes. She has never used smokeless tobacco. . [place] has v[place]ctomy. CHIEF COMPLAINT: Chief Complaint Patient presents with Abscess Abscess on right breast red, hot to tough, streaking x 3-4 days HISTORY OF PRESENT ILLNESS: The history was obtained from patient. Stefani is a 38 y.o. female, whopresents with a chief complaint of a slightly swollen, painful, reddened, warm rash on her R breast- sxs started on Tuesday or Tuesday. Denies any known injury or precipitating factors, but wonders if sxs might be related to a bug bite. She has not had any drainage from the rash; since onset, the area in the center has become a little more purplish. Denies any fever, chills, body aches, malaise, nausea, vomiting, or other constitutional S/S. Has tried benadryl and Tylenol without much relief; has not tried any other OTC medications or conservative measures for management of symptoms. Denies any other complaints. Denies any possibility of - has vasectomy. No known history of MRSA or skin infection. Since 02/23/24, david has been on 1 round of Doxycycline and 2 courses of Z-pac for bronchitis/sinus infection, which seem to be resolving now. Reports she recently had a normal CXR. REVIEW OF SYSTEMS: 10 systems reviewed negative with exception of history of present illness as listed above. TODAY'S VITALS: BP 132/79 Pulse 92 Temp 36.7 C (98 F) Resp 18 Ht 1.715 m (5' 7.5) Wt 86.2 kg (190 lb) SpO2 98% BMI 29.32 kg/m PHYSICAL EXAMINATION: General: Pleasant female, alert and oriented, in no acute distress. Eyes: Eyes non-icteric; conjunctiva clear. HENT: Normocephalic. Neck: Supple; no lymphadenopathy Respiratory: Lungs are clear to auscultation, Respirations are easy and non- labored, Breath sounds are equal, Symmetrical chest wall expansion. Cardiovascular: Normal rate, Regular rhythm. Normal S1S2. No m/r/g. Musculoskeletal: Normal range of motion, normal strength, no joint tenderness or swelling. Integumentary: Kaufman, warm, dry. At ~3 o'clock position of R breast, has an approx 4x4 cm area of streaky erythema and tenderness, with very mild, superficial, quarter-sized area of firmness. At the center of area of erythema is a bb-sized area of ecchymosis. No fluctuance or pointing; no streaking or tenderness that extends beyond localized, noted area. No crusting or drainage. Breast (including areola/nipple) otherwise unremarkable. No palpable axillary lymphadenopathy. Neurologic: Alert, Oriented, Normal sensory, Normal motor function. Cognition and Speech: Oriented, Speech clear and coherent. Psychiatric: Cooperative, Appropriate mood & affect. Medical Decision Making LABORATORY or RADIOLOGICAL IMAGING ORDERS/RESULTS: None IMPRESSION/PLAN: Course: Worsening; stable 1. Cellulitis of right breast (Primary) - sulfamethoxazole-trimethoprim (Bactrim DS) 800-160 mg tablet; Take 1 tablet by mouth 2 times a day for 10 days. Take with a meal. Dispense: 20 tablet; Refill: 0 Sxs/exam consistent with Cellulitis, potentially secondary to insect bite, although reviewed other potential etiologies and stressed importance of close monitoring/follow up if symptoms not improvingover the next 48-72 hours. Although reluctant to utilize a 4th course of antibiotics (patient reports has recently been on 2 courses of Z-pac and 1 course of Doxycycline for sinusitis/bronchitis), inlight of degree of cellulitis, unable to avoid at this point. Patient will be discharged home with oral antibiotics - Bactrim - rx for 10 day course sent, but advised to stop at 7 days if symptoms resolved at that point. Strongly emphasized need to start probiotic/yogurt and to monitor for any s/sxs of antibiotic associated infections.. Instructed to take full course of Bactrim (start CELESTE), evenif symptoms resolve more quickly, to push fluids, rest, and to use appropriate over the counter medications for management of symptoms. Warm compresses may also be helpful. Should otherwise keep area clean/dry (use soap and water). Reviewed expectations for treatment and resolution of infection, aswell as red flags to watch for. Advised to follow-up with primary care provider in 24-48 hours for any increase in severity of symptoms, if not improving, or to seek care sooner if any additional concerns develop (fever, malaise, streaking, increased swelling/redness/induration/pain, etc). Patient agreed with plan of care; questions were encouraged and answered. Marlon Presley APRN-[employer]OWLING [employer] M[employer] ASSEMBLER Advanced Practice Provider [facility] documented in this [facility] Work Phone: 1(493) 758-987012-23-2024 Evaluation note* Diagnosis Onset Date Resolution Status Admit Date BMI 29.0-29.9,adult acute Decem ruben 2023 9:54am Borderline high cholesterol acute March 05, 2024 9:54am Cough acute March 05, 2024 9:54am Elevated fasting glucose acute March 05, 2024 9:54am Fatigue acute March 05, 2024 9:54am Metabolic syndrome acute Decemb er 2023 9:54am BMI 30.0-30.9,adult resolved Decem ruben 2023 9:54am BMI 29.0-29.9,adult acute Janua ry 2024 10:19am Borderline high cholesterol acute March 29, 2024 10:19am Elevated fasting glucose acute March 29, 2024 10:19am Fatigue acute March 29, 2024 10:19am Metabolic syndrome acute Januar y 2024 10:19am BMI 30.0-30.9,adult resolved Janua ry 2024 10:19am BMI 29.0-29.9,adult acute Febru shannon2024 10:08am Borderline high cholesterol acute May 01, 2024 10:08am Elevated fasting glucose acute May 01, 2024 10:08am Fatigue acute May 01, 2024 10:08am Metabolic syndrome acute Februa 2024 10:08am Chest wall contusion acute 2024 9:21am BMI 29.0-29.9,adult acute May 31, 2024 10:46am Borderline high cholesterol acute May 31, 2024 10:46am Elevated fasting glucose acute May 31, 2024 10:46am Fatigue acute May 31 10:46am Metabolic syndrome acute May 31, 2024 10:46am [facility] Work Phone: 1(203) 432-633212-12-2024 History of Present illness Narrative* BELLE Francis - 02/23/2024 2:45 PM EST [facility] Marlon Case Sudha, SIDEROGRAPHER-[employer] M[employer] ASSEMBLER Visit Note - 02/23/2024 3:12 PM This note was generated with voice recognition software and may contain errors including spelling, grammar, syntax, and misrecognization of what was dictated. Patient: Stefani Santos, , 38 y.o., female PCP: Marlon Shepherd, DO ALLERGIES: No Known Allergies CURRENT MEDICATIONS: Current Outpatient Medications Medication Instructions albuterol 90 mcg/actuation inhaler 1-2 puffs, inhalation, Every 4 hours PRN clobetasol (Temovate) 0.05 % external solution Apply to any areas of psoriasis on the scalp or ears1x daily as needed doxycycline (ADOXA) 100 mg, oral, 2 times daily, Take with a full glass of water and do not lie down for at least 30 minutes after. ELDERBERRY FRUIT ORAL Take by mouth. fluconazole (DIFLUCAN) 150 mg, oral, Once, Take at first sign of yeast infection. levocetirizine (Xyzal) 5 mg tablet Every evening multivitamin tablet,chewable Chew. phentermine (Adipex-P) 37.5 mg tablet 37.5 mg orally daily; BMI 30 predniSONE (Deltasone) 10 mg tablet Take 6 tabs PO daily x1 day, then take 5 tabs daily x1 day, then take 4 tabs daily x1 day, then take 3 tabs daily x1 day, then take 2 tabs daily x1 day, then take 1 tab daily x1 day. Take with a meal. promethazine-DM (Phenergan-DM) 6.25-15 mg/5 mL syrup 5 mL, oral, Every 6 hours PRN, *caution - can cause drowsiness* triamcinolone (Nasacort) 55 mcg nasal inhaler Administer into affected nostril(s). PAST MEDICAL HX: Patient Active Problem List Diagnosis Reactive airway disease ([facility]) Fatigue Healthcare maintenance BMI 29.0-29.9,adult SURGICAL HX: Past Surgical History: Procedure Laterality Date OTHER SURGICAL HISTORY 09/01/2018 Cholecystectomy OTHER SURGICAL HISTORY 09/01/2018 section OTHER SURGICAL HISTORY 09/01/2018 [place] tooth extraction FAMILY HX: No pertinent history. SOCIAL HX: Is a former smoker. . Employed - [employer]. CHIEF COMPLAINT: Chief Complaint Patient presents with URI Cough, chest congestion, sore throat, ear fullness x 1 week HISTORY OF PRESENT ILLNESS: The history was obtained from patient. Stefani is a 38 y.o. female, whopresents with a chief complaint of a sore throat, chest congestion, productive cough (pale yellow phlegm), hoarse voice, bilat ear pain/popping, and fatigue - sxs started last Tuesday. Denies any fever/chills, body aches, abdominal pain, chest pain, wheezing/shortness of breath, rashes, urinary symptoms, nausea/vomiting, and diarrhea. Denies any lightheadedness or dizziness; no changes in mental status. No swelling in legs. Appetite is normal; is able to eat and drink fluids without difficulty; denies loss of sense of taste or smell. Reports symptoms have gotten worse since onset. Has been taking Mucinex DM, Nyquil, Delsym, and plain Mucinex without much relief; no other yooe-tew-ovfashr medications or home remedies for symptom management. Her has been ill recently with similar sxs; no other known ill contacts. Has not received the COVID vaccine. Has not received this season's influenza vaccine.. Last known COVID infection was in 2020. Is a former smoker. No known history of asthma/COPD/respiratory issues. No recent antibiotic use. REVIEW OF SYSTEMS: 10 systems reviewed negative with exception of history of present illness as listed above. TODAY'S VITALS: BP 124/67 Pulse (!) 124 Temp 37 C (98.6 F) (Temporal) Resp 16 Wt 89.4 kg (197 lb) SpO2 97% BMI 29.95 kg/m Recheck HR: 89. PHYSICAL EXAMINATION: General: Mildly ill-appearing, well nourished female; alert and oriented; in no acute distress. Sitting comfortably on exam table. Non-dyspneic, but has hoarse voice. Eyes: Pupils equal, round and reactive to light. No conjunctival erythema; no scleral icterus. HENT: No frontal or maxillary sinus tenderness; + audible nasal congestion. Airway patent, TMs and ear canals clear/unremarkable bilaterally. Nasal mucosa mildly injected and edematous. Oral mucosa moist. Posterior pharynx mildly injected but without vesicles or oropharyngeal exudate. Uvula is midline. Managing oral secretions without difficulty. Neck: Supple. Mildly tender, mobile anterior cervical lymphadenopathy bilat. Trachea is midline. Respiratory: Respirations easy and unlabored, Breath sounds equal. Lungs with few faint, end-expiratory wheezes, but no rhonchi or rales. Has good air movement throughout. + semi-productive cough noted. Non-dyspneic with ambulation; able to maintain SpO2. Cardiovascular: Normal rate, Regular rhythm. Normal S1S2. No m/r/g. No peripheral edema. Gastrointestinal: Soft, non-tender, non-distended; no palpable masses or organomegaly. Bowel soundsnormoactive. Musculoskeletal: Grossly normal; appropriate for age. Integumentary: Kaufman, warm, dry, and intact. No rashes or skin discoloration appreciated. Good skin turgor. Neurologic: Alert and oriented, no gross deficits. Cognition and Speech: Oriented, Speech clear and coherent. Psychiatric: Cooperative, Appropriate mood & affect. Medical Decision Making LABORATORY or RADIOLOGICAL IMAGING ORDERS/RESULTS: None IMPRESSION/PLAN: Course: Worsening; stable 1. Acute bronchitis, unspecified organism (Primary) - doxycycline (Adoxa) 100 mg tablet; Take 1 tablet (100 mg) by mouth 2 times a day for 10 days. Take with a full glass of water and do not lie down for at least 30 minutes after. Dispense: 20 tablet;Refill: 0 - predniSONE (Deltasone) 10 mg tablet; Take 6 tabs PO daily x1 day, then take 5 tabs daily x1 day, then take 4 tabs daily x1 day, then take 3 tabs daily x1 day, then take 2 tabs daily x1 day, then take 1 tab daily x1 day. Take with a meal. Dispense: 21 tablet; Refill: 0 - fluconazole (Diflucan) 150 mg tablet; Take 1 tablet (150 mg) by mouth 1 time for 1 dose. Take at first sign of yeast infection. Dispense: 1 tablet; Refill: 0 - albuterol 90 mcg/actuation inhaler; Inhale 1-2 puffs every 4 hours if needed for wheezing or shortness of breath. Dispense: 8.5 g; Refill: 0 - promethazine-DM (Phenergan-DM) 6.25-15 mg/5 mL syrup; Take 5 mL by mouth every 6 hours if needed for cough. *caution - can cause drowsiness* Dispense: 120 mL; Refill: 0 No red flags on exam today. Patient requesting to defer CXR at this time. Symptoms consistent with acute bronchitis, but reviewed other potential etiologies. Due to severity and duration of symptoms,will begin treatment with Doxycycline and prednisone taper today; will also start cough medication ( Promethazine DM) and albuterol inhaler for PRN use. Rx for watch and wait Diflucan provided - canstart if she develops any s/sxs of yeast infection. Instructed to push fluids, rest, and to use appropriate over the counter medications as needed for management of symptoms - plain Mucinex may be helpful. Reviewed instructions for self-isolation and continued monitoring. Reviewed red flags to monitor for, counseled on potential adverse reactions of treatments, expectations for improvement in sxs, and advised to follow-up with primary care provider in 2-3 days if symptoms persist, or to seek care sooner if worsening or if any additional concerns/red flags develop. Patient agreed with plan of care; questions were encouraged and answered. BELLE Francis Advanced Practice Provider [facility] documented in this encounterUC Health Work Phone: [phone]) [phone] History of Present illness Narrative* BELLE Francis - 06/17/2023 11:40 AM EDT [facility] BELLE Francis Visit Note - 06/17/2023 12:18 PM This note was generated with voice recognition software and may contain errors including spelling, grammar, syntax, and misrecognization of what was dictated. Patient: Stefani Santos, , 38 y.o., female PCP: Marlon Shepherd, DO ALLERGIES: No Known Allergies CURRENT MEDICATIONS: Current Outpatient Medications Medication Instructions ELDERBERRY FRUIT ORAL oral levocetirizine (Xyzal) 5 mg tablet oral, Every evening multivitamin tablet,chewable oral phentermine (ADIPEX-P) 37.5 mg, oral, Daily triamcinolone (Nasacort) 55 mcg nasal inhaler nasal PAST MEDICAL HX: Patient Active Problem List Diagnosis Reactive airway disease Fatigue Healthcare maintenance BMI 29.0-29.9,adult SURGICAL HX: Past Surgical History: Procedure Laterality Date OTHER SURGICAL HISTORY 09/01/2018 Cholecystectomy OTHER SURGICAL HISTORY 09/01/2018 section OTHER SURGICAL HISTORY 09/01/2018 [place] tooth extraction FAMILY HX: No pertinent history. SOCIAL HX: reports that she has never smoked. She has never used smokeless tobacco. Self- employed. hasvasectomy. 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 CHIEF COMPLAINT: Chief Complaint Patient presents with URI DIZZY X TODAY, CONGESTION, RUNNY NOSE, SORE THROAT, X 4 DAYS HISTORY OF PRESENT ILLNESS: The history was obtained from patientPo Ko is a 38 y.o. female, whopresents with a chief complaint of nasal congestion/pressure (clear mucus), a sore throat, ears feel like they want to pop, mild headaches, a mild, productive cough (cloudy phlegm), and episodes ofequilibrium feeling off + nausea. Symptoms started on Tuesday. Denies any fever/chills, body aches, ear pain, abdominal pain, chest pain, wheezing/shortness of breath, rashes, urinary symptoms, vomiting, and diarrhea. Denies any lightheadedness; no changes in mental status. No swelling in legs. Appetite is decreased ; is able to eat and drink fluids without difficulty; denies loss of sense of taste or smell. Reports symptoms have gotten worse since onset- did not have issues with equilibrium until today. Has been taking Ibuprofen, Tylenol, and Nyquil without much relief; no other uezy-nzz-qnixaru medications or home remedies for symptom management. Reports one of her children is currently ill with GI symptoms; no other known ill contacts. Has not received the COVID vaccine Has not received this season's influenza vaccine. Last known COVID infection was in 02/2021. Is a former smoker. Norecent antibiotic use. Reports stopped her Xyzal recently since she was taking Nyquil. REVIEW OF SYSTEMS: 10 systems reviewed negative with exception of history of present illness as listed above. TODAY'S VITALS: BP 124/85 Pulse 73 Temp 36.4 C (97.5 F) Resp 16 Ht 1.727 m (5' 8) Wt 89.4 kg (197 lb 1.6 oz) SpO2 100% BMI 29.97 kg/m PHYSICAL EXAMINATION: General: Mildly ill-appearing, well nourished female; alert and oriented; in no acute distress. Sitting comfortably on exam table. Non-dyspneic. Eyes: Pupils equal, round and reactive to light. No conjunctival erythema; no scleral icterus. HENT: Mild maxillary sinus pressure; + audible nasal congestion. Airway patent, TM's with mild clear effusions bilat, but not erythematous, bulging, or retracted; ear canals clear/unremarkable bilaterally. Nasal mucosa mildly injected and edematous. Oral mucosa moist. Posterior pharynx moderatelyinjected but without vesicles or oropharyngeal exudate aside from PND. Uvula is midline. Managing oral secretions without difficulty. Neck: Supple. Mildly tender, mobile anterior cervical lymphadenopathy bilat. Trachea is midline. Respiratory: Respirations easy and unlabored, Breath sounds equal. Lungs are clear to auscultation;no wheezes, rhonchi, or rales; has good air movement throughout. + mild, loose, productive cough noted. Non-dyspneic with ambulation; able to maintain SpO2. Cardiovascular: Normal rate, Regular rhythm. Normal S1S2. No m/r/g. No peripheral edema. Gastrointestinal: Soft, non-tender, non-distended. Bowel sounds normoactive. Musculoskeletal: Grossly normal; appropriate for age. Integumentary: Kaufman, warm, dry, and intact. No rashes or skin discoloration appreciated. Neurologic: Alert and oriented, no gross deficits. Neg Patsy Hallpike. Cognition and Speech: Oriented, Speech clear and coherent. Psychiatric: Cooperative, Appropriate mood & affect. Medical Decision Making LABORATORY or RADIOLOGICAL IMAGING ORDERS/RESULTS: Strep A PCR test done - negative IMPRESSION/PLAN: Course: Worsening; stable 1. Acute pharyngitis, unspecified etiology 2. Acute upper respiratory infection 3. Dizziness - POCT Group A Streptococcus, PCR manually resulted No red flags on exam today. Neg Austin Hallpike. Describes her sxs as equilibrium feeling off ratherthan lightheadedness. Suspect fluid in inner ears is likely contributing. I have reviewed the COVID-19 algorithm, and counseled pt on COVID-19 current recommendations. Symptoms consistent with viral URI with associated symptoms, but reviewed other potential etiologies, and strep test done - was negative. Discussed testing for COVID/influenza but patient defers at this time. No antibiotics indicated at this point, but encouraged to continue conservative measures. Instructed to push fluids, rest, and to use appropriate over the counter medications as needed for management of symptoms. Reviewed instructions for self-isolation and continued monitoring. Reviewed red flags to monitor for, counseled on potential adverse reactions of treatments, expectations for improvement in sxs, and advisedto follow-up with primary care provider in 2-3 days if symptoms persist, or to seek care sooner if worsening or if any additional concerns/red flags develop. Patient agreed with plan of care; questions were encouraged and answered. BELLE Francis Advanced Practice Provider [facility] documented in this encounterUC Health Work Phone: [phone] History of Present illness Narrative* Marlon Shepherd, - 06/14/2023 8:40 AM EDT Subjective Patient ID: Stefani Santos is a 38 y.o. female who presents for Annual Exam. ELI Bernard is here today for annual exam. 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 She has lost 12 lbs so far. Review of Systems Constitutional: Negative for activity change, appetite change, chills and fatigue. HENT: Negative for congestion, postnasal drip, sinus pressure, sinus pain and sore throat. Respiratory: Negative for cough, shortness of breath and wheezing. Cardiovascular: Negative for chest pain and leg swelling. Gastrointestinal: Negative for abdominal distention, diarrhea, nausea and vomiting. Musculoskeletal: Negative for back pain. Neurological: Negative for weakness and numbness. Objective BP 127/81 Pulse 83 Ht 1.727 m (5' 8) Wt 89.4 kg (197 lb) BMI 29.95 kg/m Physical Exam Constitutional: General: She is not in acute distress. Appearance: Normal appearance. HENT: Head: Normocephalic. Nose: Nose normal. Mouth/Throat: Pharynx: No oropharyngeal exudate. Eyes: General: Right eye: No discharge. Left eye: No discharge. Extraocular Movements: Extraocular movements intact. Pupils: Pupils are equal, round, and reactive to light. Cardiovascular: Rate and Rhythm: Normal rate and regular rhythm. Heart sounds: No murmur heard. No gallop. Pulmonary: Effort: Pulmonary effort is normal. No respiratory distress. Breath sounds: Normal breath sounds. No wheezing. Musculoskeletal: General: No swelling. Normal range of motion. Skin: General: Skin is warm and dry. Coloration: Skin is not jaundiced. Neurological: General: No focal deficit present. Mental Status: She is alert and oriented to person, place, and time. Cranial Nerves: No cranial nerve deficit. Psychiatric: Mood and Affect: Mood normal. Behavior: Behavior normal. Immunizations Flu declines Covid declines Pna Shingles Rsv Pap 2021 Mammo -- Colonoscopy -- DEXa -- Assessment/Plan Problem List Items Addressed This Visit Reactive airway disease RESOLVED: Migraine with aura - Primary BMI 29.0-29.9,adult Obesity, bmi 30 - on adipex through marketing services specialist, has lost 12 lbs 2. Hx od RAD, not needing inhaler 3. Will defer labs to next year as everything was normal last year and she feels well. Final diagnoses: [J45.40] Moderate persistent reactive airway disease without complication [G43.109] Migraine with aura and without status migrainosus, not intractable [Z68.29] BMI 29.0-29.9,adult documented in this encounterUC Health Work Phone: 1([phone]) 244-333103-30-2023 Evaluation + Plan note* Assessment & Plan Note - Marlon Shepherd DO - 06/10/2022 9:55 AM EDTAssociated Problem(s): Healthcare maintenance - will check cbc, cmp, lipid panel [facility] Work Phone: 1([phone]) 333-424003-30-2023 Miscellaneous Notes* Assessment & Plan Note - Marlon Shepherd DO - 06/10/2022 9:55 AM EDTAssociated Problem(s): Healthcare maintenance - will check cbc, cmp, lipid panel * Assessment & Plan Note - Marlon Shepherd DO - 06/10/2022 9:54 AM EDT Associated Problem(s): Fatigue - will check tsh, b12, vit 2, a1c with inability to loose weight documented in this encounterUC Health Work Phone: 1(341) 178-955303-30-2023 Evaluation + Plan note* Assessment & Plan Note - Marlon Shepherd DO - 06/10/2022 9:54 AM EDTAssociated Problem(s): Fatigue - will check tsh, b12, vit 2, a1c with inability to loose weight [facility] Work Phone: [phone]) 381-196803-30-2023 History of Present illness Narrative* Marlon Shepherd DO - 06/10/2022 9:40 AM EDT Subjective Patient ID: Stefani Santos is a 37 y.o. female who presents for Annual Exam (3 year f/u) and Menopause (Pt would like to talk about possible hormone issues ). HPI Patient is here today for 3 year follow up Patient reports that she has been doing well. Patient is requesting hormone testing. She is having trouble loosing weight. She is counting calories, is working out, had lost 20 lbs. Review of Systems Constitutional: Positive for fatigue. Negative for activity change, appetite change and chills. Struggle loosing weight HENT: Negative for congestion, postnasal drip, sinus pressure, sinus pain and sore throat. Respiratory: Negative for cough, shortness of breath and wheezing. Cardiovascular: Negative for chest pain and leg swelling. Gastrointestinal: Negative for abdominal distention, diarrhea, nausea and vomiting. Musculoskeletal: Negative for back pain. Neurological: Negative for weakness and numbness. Objective BP 126/83 (BP Location: Right arm, Patient Position: Sitting, BP Cuff Size: Adult) Pulse 74 Ht 1.727 m (5' 8) Wt 90.7 kg (200 lb) BMI 30.41 kg/m Physical Exam Constitutional: General: She is not in acute distress. Appearance: Normal appearance. HENT: Head: Normocephalic. Nose: Nose normal. Mouth/Throat: Mouth: Mucous membranes are dry. Pharynx: No oropharyngeal exudate. Eyes: General: Right eye: No discharge. Left eye: No discharge. Extraocular Movements: Extraocular movements intact. Pupils: Pupils are equal, round, and reactive to light. Cardiovascular: Rate and Rhythm: Normal rate and regular rhythm. Heart sounds: No murmur heard. No gallop. Pulmonary: Effort: Pulmonary effort is normal. No respiratory distress. Breath sounds: Normal breath sounds. No wheezing. Musculoskeletal: General: No swelling. Normal range of motion. Skin: General: Skin is warm and dry. Coloration: Skin is not jaundiced. Neurological: General: No focal deficit present. Mental Status: She is alert and oriented to person, place, and time. Cranial Nerves: No cranial nerve deficit. Psychiatric: Mood and Affect: Mood normal. Behavior: Behavior normal. Flu shots : declines COVID: declines Pap 2021, [facility] Assessment/Plan Problem List Items Addressed This Visit Other Fatigue - will check tsh, b12, vit 2, a1c with inability to loose weight Relevant Orders TSH with reflex to Free T4 if abnormal Vitamin D 25-Hydroxy,Total Vitamin B12 Healthcare maintenance - Primary - will check cbc, cmp, lipid panel Relevant Orders Comprehensive Metabolic Panel CBC and Auto Differential Other Visit Diagnoses Screening for lipid disorders Relevant Orders Lipid Panel Irregular periods Relevant Orders FSH Luteinizing hormone Unable to lose weight Relevant Orders Hemoglobin A1C Has spot on shoulder that derm is removing Dr Ganga Shah for suspected melanoma, no bx results yet. Final diagnoses: [Z00.00] Healthcare maintenance [Z13.220] Screening for lipid disorders [R53.83] Other fatigue [N92.6] Irregular periods [R63.8] Unable to lose weight documented in this [facility] Work Phone: 1([phone]) [phone] Note ADDITIONAL PROCEDURES PRESENT Specimen originated from [facility] Specimen #: [id number] Submitting Physician: WENDI MEIER CNP SPECIMEN SUBMITTED A: CERVICAL, DIAGNOSTIC, FLUID FINAL DIAGNOSIS A. CERVICAL, DIAGNOSTIC, FLUID Satisfactory for interpretation. Negative for intraepithelial lesion or malignancy. This specimen has been analyzed by the ThinPrep Imaging System, an automated imaging and review system, which assists the laboratory in evaluating cells on ThinPrep Pap tests. Following automated imaging, selected lester from every slide are reviewed by a validation architect. Darwin Cortez M.D. (Electronic Signature) ADDITIONAL PROCEDURE(S) HUMAN PAPILLOMA VIRUS Date Ordered: 05/08/2020 Date Reported: 05/10/2020 Procedure Results and Interpretation Negative for HPV DNA high risk type 16 by PCR. Negative for HPV DNA high risk type 18 by PCR. Negative for HPV DNA high risk types: 31,33,35,39,45,51,52,56,58,59,66,68 by PCR. This test was developed and its performance characteristics determined by [facility] [place] ([facility] It has not been cleared or approved by the FDA. [facility] is regulated under CLIA as qualified to perform high-complexity testing. This test is used for clinical purposes. It should not be regarded as investigational or for research. 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, [address] [place] [address]. CLIA Number: [id number] The Pap Smear is a screening test for cervical cancer. False negative results occur with all screening tests, emphasizing the need for rescreening at recommended intervals, and clinical correlation.[facility]02-24-2021 NoteHNO ID: [id number] Author: Wendi Meier Service: ? Author Type: Nurse Practitioner Type: Progress Notes Filed: 05/07/2020 9:59 AM Note Text: Lay Brother offered: Patient declines. Stefani is a 35 year old who presents for an annual gynecologic exam with complaints - abdominal cramping, not sure if it continuation of UTI symptoms or pre-menstrual. Treated for UTI last week, feels like she is now getting cramping like at the onset of UTI. Treated with Macrobid and symptoms resolved. Was prescribed Cipro for better coverage but did not take it. Menses: cycles every 30-35 days and 3-5 days of flow. Contraception: vasectomy HPV vaccine: No Last Pap: 2016 ASCUS HPV: 2017 HRHPV positive History of abnormal pap: Yes. 2017 Colposcopy CIN1 - did not have repeat Pap Last mammogram: never Sexually active: Yes Time with current partner: 13 years Pain with intercourse: No Postcoital bleeding: No OB History T2 L2 SAB1 TAB0 Ectopic0 Multiple0 Live Births2 PAST MEDICAL HISTORY Diagnosis Date - FRACTURE ELBOW - FRACTURE ANKLE - Gestational diabetes mellitus 01/11/2014 - Headache - Infertility, female - Miscarriage PAST SURGICAL HISTORY Procedure Laterality Date - DELIVERY ONLY 08/30/15 , low transverse - PAST SURGICAL HISTORY OF age 17 wisdom teeth extracted FAMILY HISTORY Problem Relation Age of Onset - Cancer Mother lymphoma - Hypertension Mother - Cancer Paternal Grandfather colon - Diabetes Paternal Grandfather - Lipids Paternal Grandfather - Heart Maternal Grandfather - Thyroid Maternal Grandmother SOCIAL HISTORY Social History Tobacco Use - Smoking status: Former Smoker Years: 2.00 Quit date: 08/14/2005 Years since quittin.7 - Smokeless tobacco: Never Used Substance Use Topics - Alcohol use: Yes Comment: occassional,NOT WHILE - Drug use: No REVIEW OF SYSTEMS Abdomen: No abdominal pain, nausea, vomiting, diarrhea, or constipation. No bloating, early satiety, indigestion, or increased flatulence. Bladder: No dysuria, gross hematuria, urinary frequency, urinary urgency, or incontinence. Breast: No breast lumps, nipple d/c, overlying skin changes, redness or skin retraction. Allergies and current medication updated:Yes EXAM: BP 134/82 Ht 5' 8 (1.73m) Wt 210 lb (95.3kg) LMP 03/28/2020 BMI 31.94 kg/(m2). GENERAL: pleasant, female in no apparent distress HEENT: Normocephalic, atraumatic, mucus membranes moist and no lesions NECK: Supple, full range of motion, no adenopathy and thyroid normal DERMATOLOGY: Normal, without lesions, non-icteric and non-hirsute BREAST: soft, non-tender, symmetric, no dominant mass, normal nipple-areolar complex, no lymphadenopathy and no nipple discharge CHEST: Normal inspiratory effort ABDOMEN: soft, non-tender and no masses PELVIC: external genitalia normal, normal Bartholin's glands, urethra, Yonah's glands, no vulvar lesions, no cervical lesions, good vaginal support, physiologic discharge present, normal appearing perineal body and perianal region, Nabothian cyst BIMANUAL: uterus normal size, shape and consistency, no adnexal masses and non-tender RECTOVAGINAL: deferred. NEURO: alert and oriented x3,exam grossly non-focal EXTREMITIES: normal ASSESSMENT/PLAN: 1) Health maintenance: Pap done with HPV. Mammogram starting age 40. Nutrition, exercise and routine health maintenance exams reviewed. Abdominal cramping - urine dip negative 2) Contraception: vasectomy. Contraceptive options reviewed and information provided. 3) STD screening: Declined STD check. 4) Follow up one year or sooner as needed Wendi Meier APRN.[facility] HospitalvelandEvaluation noteNo assessment information availableWMercy Hospital Work Phone: Evaluation note* Diagnosis Migraine with aura and without status migrainosus, not intractable- Primary Moderate persistent reactive airway disease without complication BMI 29.0-29.9,adult documented in this encounter [facility] Work Phone: Evaluation note* Diagnosis Acute pharyngitis, unspecified etiology- Primary Acute upper respiratory infection Acute upper respiratory infections of unspecified site Dizziness Dizziness and giddiness documented in this encounter [facility] Work Phone: Evaluation note* Diagnosis Healthcare maintenance- Primary Screening for lipid disorders Other fatigue Irregular periods Unable to lose weight Acute bronchitis, unspecified organism- Primary documented in this encounter [facility] Work Phone: Evaluation note* Diagnosis Healthcare maintenance- Primary Screening for lipid disorders Other fatigue Irregular periods Unable to lose weight documented in this encounter [facility] Work Phone: Evaluation note* Diagnosis Healthcare maintenance- Primary Screening for lipid disorders Other fatigue Irregular periods Unable to lose weight Cellulitis of right breast- Primary documented in this encounter [facility] Work Phone: History of Present illness NarrativePatient presents for evaluation of follicular eruptions. Patient reports shaving the legs and then entering a hot tub soon thereafter. Patient reports a couple painful, small, erythematous pustules in the bilateral medial thighs and lower legs. Patient started applying Bactroban which did improve symptoms. No other areas of concern. No other complaints.[facility] Work Phone: Reason for referral (narrative)* Consultation (Routine) - Authorized Specialty Diagnoses / Procedures Referred By Contac t Referred To Contact Primary Care Procedures Follow Up In Primary Care - Established Marlon Shepherd DO [address] [place] [address] [place] [address] Referral ID Status Reason Start Date Expiration Date V isits Requested Visits Authorized [id number] Authorized 06/14/2023 06/13/2024 1 1 [facility] Work Phone: Reypqr for referral (narrative)* Consultation (Routine) - Authorized Specialty Diagnoses / Procedures Referred By Contac t Referred To Contact Primary Care Procedures Follow Up In Primary Care Marlon Shepherd DO [address] [place] [address] [place] [address] Referral ID Status Reason Start Date Expiration Date V isits Requested Visits Authorized [id number] Authorized 06/10/2022 12/07/2022 1 1 [facility] Work Phone: Reason for referral (narrative)No reason for referral information availableWMercy Hospital Work Phone: Summary Purpose Family History No Family History Records FoundUnknown Family Member Name Dates Details Family history of leukemia: Mother(V16.6, Z80.6) Status:Active Family history of hypertensi on: Mother(V17.49, Z82.49) Status:Active Family history of kidney dis ease: Mother(V18.69, Z84.1) Status:Active Unknown Family Member Name Dates Details Family history of leukemia: Mother(V16.6, Z80.6) Status:Active Family history of hypertensi on: Mother(V17.49, Z82.49) Status:Active Family history of kidney dis ease: Mother(V18.69, Z84.1) Status:Active Unknown Family Member Name Dates Details Family history of leukemia: Mother(V16.6, Z80.6) Status:Active Family history of hypertensi on: Mother(V17.49, Z82.49) Status:Active Family history of kidney dis ease: Mother(V18.69, Z84.1) Status:Active Relationship Condition Age at Onset Recorded Date/T judy Not Specified Malignant neoplasm of colon Unknown mother Hypertension Unknown Kidney disorder Unknown Chronic lymphocytic leukemia Unknown Malignant melanoma Unknown father Hyperlipidemia Unknown grandfather Myocardial infarction Unknown grandmother Dementia Unknown Advance Directives No Advanced Directives Records Found Advance Directive Response Recorded Date/ Time Living Will No August 30, 2015 6:57am Power of Ordnance Keeper No August 29 6 6:57am Chief Complaint Patient here today to be seen for bilateral thigh & leg skin irritation area with discomfort x 2 days. Patient states has been in the hot tub after shaving her legs. Patient has used OTC Mupirocin 2% cream last night that helped with the irritation. Patient denies any itching. Chief Complaint and Reason for Visit Chief Complaint Admit Date 4 wk med check March 05, 2024 9:54am COUGH/CHEST LAMBERTO March 05, 2024 11:32am EORDER March 05, 2024 11:44am WEIGHT MANAGEMENT CHECK March 29 10:19am 1 M FU May 01, 2024 10:08am ELEVATED HR ON WM MEDS May 02 7:50am ROUTINE May 02, 2024 7:56am L SIDE RIB PAIN FROM INJURY May 31, 2024 9:21am 1 M FU/WM May 31, 2024 10: 46am Reason for Visit Admit Date BMI 29.0-29.9,adult March 05, 2024 9:54am Borderline high cholesterol February 9:54am Cough March 05, 2024 9:54am Elevated fasting glucose March 05, 2024 9:54am Fatigue March 05, 2024 9:54am Metabolic syndrome March 05, 2024 9:54am BMI 30.0-30.9,adult March 05, 2024 9:54am BMI 29.0-29.9,adult March 29, 2024 1 0:19am Borderline high cholesterol March 10:19am Elevated fasting glucose March 29, 025 10:19am Fatigue March 29, 2024 1 0:19am Metabolic syndrome March 29, 2024 1 0:19am BMI 30.0-30.9,adult March 29, 2024 1 0:19am BMI 29.0-29.9,adult May 01, 2024 10:08am Borderline high cholesterol April 10:08am Elevated fasting glucose May 01, 2024 10:08am Fatigue May 01, 2024 10:08am Metabolic syndrome May 01, 2024 10:08am Chest wall contusion May 31, 2024 9: 21am BMI 29.0-29.9,adult May 31, 2024 10: 46am Borderline high cholesterol May 31, 2024 10:46am Elevated fasting glucose May 31 10:46am Fatigue May 31, 2024 10: 46am Metabolic syndrome May 31, 2024 10: 46am Chief Complaint Admit Date WEIGHT MANAGEMENT CHECK March 29 10:19am 1 M FU May 01, 2024 10:08am ELEVATED HR ON WM MEDS May 02 7:50am ROUTINE May 02, 2024 7:56am L SIDE RIB PAIN FROM INJURY May 31, 2024 9:21am 1 M FU/WM May 31, 2024 10: 46am 4wk med check June 27, 2024 8:3 1am 8wk check July 26, 2024 8:07a m Reason for Visit Admit Date BMI 29.0-29.9,adult March 29, 2024 1 0:19am Borderline high cholesterol March 10:19am Elevated fasting glucose March 29 025 10:19am Fatigue March 29, 2024 1 0:19am Metabolic syndrome March 29, 2024 1 0:19am BMI 30.0-30.9,adult March 29, 2024 1 0:19am BMI 29.0-29.9,adult May 01, 2024 10:08am Borderline high cholesterol April 10:08am Elevated fasting glucose May 01, 2024 10:08am Fatigue May 01, 2024 10:08am Metabolic syndrome May 01, 2024 10:08am Chest wall contusion May 31, 2024 9: 21am BMI 29.0-29.9,adult May 31, 2024 10: 46am Borderline high cholesterol May 31, 2024 10:46am Elevated fasting glucose May 31 10:46am Fatigue May 31, 2024 10: 46am Metabolic syndrome May 31, 2024 10: 46am BMI 29.0-29.9,adult July 26, 2024 8:07a m Borderline high cholesterol July 26 8:07am Elevated fasting glucose July 26, 2024 8:07am Fatigue July 26, 2024 8:07a m Metabolic syndrome July 26, 2024 8:07a m Chief Complaint Admit Date 1 M FU May 01, 2024 10:08am ELEVATED HR ON WM MEDS May 02 7:50am ROUTINE May 02, 2024 7:56am L SIDE RIB PAIN FROM INJURY May 31, 2024 9:21am 1 M FU/WM May 31, 2024 10: 46am 4wk med check June 27, 2024 8:3 1am 8wk check July 26, 2024 8:07a m 4 wk FU August 23, 2024 8:20 am Reason for Visit Admit Date BMI 29.0-29.9,adult May 01, 2024 10:08am Borderline high cholesterol April 10:08am Elevated fasting glucose May 01, 2024 10:08am Fatigue May 01, 2024 10:08am Metabolic syndrome May 01, 2024 10:08am Chest wall contusion May 31, 2024 9: 21am BMI 29.0-29.9,adult May 31, 2024 10: 46am Borderline high cholesterol May 31, 2024 10:46am Elevated fasting glucose May 31 10:46am Fatigue May 31, 2024 10: 46am Metabolic syndrome May 31, 2024 10: 46am BMI 29.0-29.9,adult July 26, 2024 8:07a m Borderline high cholesterol July 26 8:07am Elevated fasting glucose July 26, 2024 8:07am Fatigue July 26, 2024 8:07a m Metabolic syndrome July 26, 2024 8:07a m Chief Complaint Admit Date L SIDE RIB PAIN FROM INJURY May 31, 2024 9:21am 1 M FU/WM May 31, 2024 10: 46am 4wk med check June 27, 2024 8:3 1am 8wk check July 26, 2024 8:07a m 4 wk FU August 23, 2024 8:20 am 8 wk f/u September 18, 2024 8:32a m Reason for Visit Admit Date Chest wall contusion May 31, 2024 9: 21am BMI 29.0-29.9,adult May 31, 2024 10: 46am Borderline high cholesterol May 31, 2024 10:46am Elevated fasting glucose May 31 10:46am Fatigue May 31, 2024 10: 46am Metabolic syndrome May 31, 2024 10: 46am BMI 29.0-29.9,adult July 26, 2024 8:07a m Borderline high cholesterol July 26 8:07am Elevated fasting glucose July 26, 2024 8:07am Fatigue July 26, 2024 8:07a m Metabolic syndrome July 26, 2024 8:07a m BMI 29.0-29.9,adult August 23, 2024 8:20 am Borderline high cholesterol August 23, 025 8:20am Elevated fasting glucose August 23, 2024 8:20am Fatigue August 23, 2024 8:20 am Metabolic syndrome August 23, 2024 8:20 am BMI 29.0-29.9,adult September 18, 2024 8:32a m Borderline high cholesterol September 18 8:32am Elevated fasting glucose September 18, 2024 8:32am Fatigue September 18, 2024 8:32a m Metabolic syndrome September 18, 2024 8:32a m Obesity, unspecified September 18, 2024 8:32 am Chief Complaint Admit Date 8wk check July 26, 2024 8:07a m 4 wk FU August 23, 2024 8:20 am 8 wk f/u September 18, 2024 8:32a m 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, 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 12 :56pm Reason for Visit Admit Date BMI 29.0-29.9,adult July 26, 2024 8:07a m Borderline high cholesterol July 26 8:07am Elevated fasting glucose July 26, 2024 8:07am Fatigue July 26, 2024 8:07a m Metabolic syndrome July 26, 2024 8:07a m BMI 29.0-29.9,adult August 23, 2024 8:20 am Borderline high cholesterol August 23, 025 8:20am Elevated fasting glucose August 23, 2024 8:20am Fatigue August 23, 2024 8:20 am Metabolic syndrome August 23, 2024 8:20 am BMI 29.0-29.9,adult September 18, 2024 8:32a m Borderline high cholesterol September 18 8:32am Elevated fasting glucose September 18, 2024 8:32am Fatigue September 18, 2024 8:32a m Metabolic syndrome September 18, 2024 8:32a m Obesity, unspecified September 18, 2024 8:32 am Pelvic pain September 18, 2024 8:32a m Encounter for routine gynecological exam ination October 31, 2024 12:56pm Additional Source Comments INFORMATION SOURCE (unrecogn ized section and content) DATE CREATED AUTHOR 06/18/2018 [facility] DATE CREATED AUTHOR AUTHOR'S ORGANIZ ATION 05/05/2021 [facility] DATE CREATED AUTHOR AUTHOR'S ORGANIZ ATION 07/03/2021 [email or web address] DATE CREATED AUTHOR AUTHOR'S ORGANIZ ATION 06/16/2022 [facility] DATE CREATED AUTHOR AUTHOR'S ORGANIZ ATION 06/16/[address] [facility] DATE CREATED AUTHOR AUTHOR'S ORGANIZ ATION 06/15/2023 [facility] DATE CREATED AUTHOR AUTHOR'S ORGANIZ ATION 03/27/2024 [facility] DATE CREATED AUTHOR AUTHOR'S ORGANIZ ATION 11/02/2024 [facility] <item> Privacy Markings (unrecogniz ed section and content) Section Author: Shawnee Rolle PROHIBITION ON REDISCLOSURE OF CONFIDENTIAL INFORMATION This notice accompanies a disclosure of information concerning a client made to you with the consent of such client. Care Teams (unrecognized sec tion and content) Team Status: Active Member Role Status Dates No Primary Care Physician Family Provider Active Dr. Marlon Shepherd , DO Primary Care Provider Active Team Status: Inactive Member Role Status Dates Dr. Marlon Shepherd , DO Primary Care Provider Active Dr. Elyssa Ruiz MD Attending Provider, Referr ing Provider Active Director Of Sports Medicine Relationship Specialty Start Date End Date Marlon Shepherd DO [address] [facility] Physician [place] [id number] PCP - General 08/14/18 Marlon Shepherd DO [address] [facility] [place] [address] PCP - Paola ARIZAO PCP 10/12/22 Director Of Sports Medicine Relationship Specialty Start Date End Date Marlon Shepherd DO [address] [facility] [place] [address] PCP - General 08/14/18 Marlon Shepherd DO [address] [facility] Physician [facility] [place] [address] PCP - [place] [facility] PCP 10/12/22 Director Of Sports Medicine Relationship Specialty Start Date End Date Marlon Shepherd DO [address] [facility] [place] [address] PCP - General 08/14/18 Marlon Shepherd DO [address] [facility] [place] [address] PCP - [place] [facility] PCP 10/12/22 Director Of Sports Medicine Relationship Specialty Start Date End Date Marlon Shepherd DO [address] [facility] [place] [address] PCP - General 08/14/18 Team Status: Active Member Role Status Dates Dr. Marlon Shepherd DO Primary Care Provider Active Team Status: Inactive Member Role Status Dates Dr. Marlon Shepherd DO Primary Care Provider Active Start: March 05, 2024 End: March 05, 2024 Dr. Marlon Shepherd DO Referring Provider Active Start: March 05, 2024 End: March 05, 2024 AALIYAH Swann Attending Provider Active Start: March 05, 2024 End: March 05, 2024 Team Status: Inactive Member Role Status Dates Dr. Marlon Shepherd DO Primary Care Provider Active Start: March 05, 2024 End: March 05, 2024 Dr. Marlon Shepherd DO Referring Provider Active Start: March 05, 2024 End: March 05, 2024 Brannon Pacheco PA, PA Attending Provider Active Start: March 05, 2024 End: March 05, 2024 Team Status: Inactive Member Role Status Dates Dr. Marlon Shepherd DO Primary Care Provider Active Start: March 05, 2024 End: March 05, 2024 ARCELIA Steen Attending Provider Active Start: March 05, 2024 End: March 05, 2024 ARCELIA Steen Referring Provider Active Start: March 05, 2024 End: March 05, 2024 Team Status: Inactive Member Role Status Dates Dr. Marlon Shepherd DO Primary Care Provider Active Start: March 29, 2024 End: March 29, 2024 Dr. Marlon Shepherd DO Referring Provider Active Start: March 29, 2024 End: March 29, 2024 AALIYAH Swann Attending Provider Active Start: March 29, 2024 End: March 29, 2024 Team Status: Inactive Member Role Status Dates Dr. Marlon Shepherd DO Primary Care Provider Active Start: May 01, 2024 End: May 01, 2024 Dr. Marlon Shepherd DO Referring Provider Active Start: May 01, 2024 End: May 01, 2024 AALIYAH Swann Attending Provider Active Start: May 01, 2024 End: May 01, 2024 Team Status: Inactive Member Role Status Dates Dr. Marlon Shepherd DO Primary Care Provider Active Start: May 02, 2024 End: May 02, 2024 AALIYHA Swann Attending Provider Active Start: May 02, 2024 End: May 02, 2024 AALIYAH Swann Referring Provider Active Start: May 02, 2024 End: May 02, 2024 Team Status: Active Member Role Status Dates Dr. Marlon Shepherd DO Primary Care Provider Active Start: May 02, 2024 End: May 02, 2024 Dr. Seema Parks MD Attending Provider Active Start: May 02, 2024 End: May 02, 2024 AALIYAH Swann Referring Provider Active Start: May 02, 2024 End: May 02, 2024 Team Status: Inactive Member Role Status Dates Dr. Marlon Shepherd DO Primary Care Provider Active Start: May 31, 2024 End: May 31, 2024 Dr. Marlon Shepherd DO Referring Provider Active Start: May 31, 2024 End: May 31, 2024 ARCELIA Pizarro Attending Provider Active Sta rt: May 31, 2024 End: May 31, 2024 Team Status: Inactive Member Role Status Dates Dr. Marlon Shepherd DO Primary Care Provider Active Start: May 31, 2024 End: May 31, 2024 ARCELIA Pizarro Attending Provider Active Sta rt: May 31, 2024 End: May 31, 2024 ARCELIA Pizarro Referring Provider Active Sta rt: May 31, 2024 End: May 31, 2024 Team Status: Inactive Member Role Status Dates Dr. Marlon Shepherd DO Primary Care Provider Active Start: May 31, 2024 End: May 31, 2024 Dr. Marlon Shepherd DO Referring Provider Active Start: May 31, 2024 End: May 31, 2024 AALIYAH Swann Attending Provider Active Start: May 31, 2024 End: May 31, 2024 Team Status: Inactive Member Role Status Dates Dr. Marlon Shepherd DO Primary Care Provider Active Start: June 27, 2024 End: June 27, 2024 Dr. Marlon Shepherd DO Referring Provider Active Start: June 27, 2024 End: June 27, 2024 AALIYAH Swann Attending Provider Active Start: June 27, 2024 End: June 27, 2024 Team Status: Inactive Member Role Status Dates Dr. Marlon Shepherd DO Primary Care Provider Active Start: July 26, 2024 End: July 26, 2024 Dr. Marlon Shepherd DO Referring Provider Active Start: July 26, 2024 End: July 26, 2024 AALIYAH Swann Attending Provider Active Start: July 26, 2024 End: July 26, 2024 Team Status: Inactive Member Role Status Dates Dr. Marlon Shepherd DO Primary Care Provider Active Start: August 23, 2024 End: August 23, 2024 Dr. Marlon Shepherd DO Referring Provider Active Start: August 23, 2024 End: August 23, 2024 AALIYAH Swann Attending Provider Active Start: August 23, 2024 End: August 23, 2024 Team Status: Active Member Role/Relationship Status Dates Dr. Marlon Shepherd DO Primary Care Provider Active Team Status: Inactive Member Role/Relationship Status Dates Dr. Marlon Shepherd DO Primary Care Provider Active Start: May 31, 2024 End: May 31, 2024 Dr. Marlon Shepherd DO Referring Provider Active Start: May 31, 2024 End: May 31, 2024 Perry PANIAGUA PA Attending Provider Active Sta rt: May 31, 2024 End: May 31, 2024 Team Status: Inactive Member Role/Relationship Status Dates Dr. Marlon Shepherd DO Primary Care Provider Active Start: May 31, 2024 End: May 31, 2024 Perry PANIAGUA PA Attending Provider Active Sta rt: May 31, 2024 End: May 31, 2024 ARCELIA Pizarro Referring Provider Active Sta rt: May 31, 2024 End: May 31, 2024 Team Status: Inactive Member Role/Relationship Status Dates Dr. Marlon Shepherd DO Primary Care Provider Active Start: May 31, 2024 End: May 31, 2024 Dr. Marlon Shepherd DO Referring Provider Active Start: May 31, 2024 End: May 31, 2024 AALIYAH Swann Attending Provider Active Start: May 31, 2024 End: May 31, 2024 Team Status: Inactive Member Role/Relationship Status Dates Dr. Marlon Shepherd DO Primary Care Provider Active Start: June 27, 2024 End: June 27, 2024 Dr. Marlon Shepherd DO Referring Provider Active Start: June 27, 2024 End: June 27, 2024 AALIYAH Swann Attending Provider Active Start: June 27, 2024 End: June 27, 2024 Team Status: Inactive Member Role/Relationship Status Dates Dr. Marlon Shepherd DO Primary Care Provider Active Start: July 26, 2024 End: July 26, 2024 Dr. Marlon Shepherd DO Referring Provider Active Start: July 26, 2024 End: July 26, 2024 AALIYAH Swann Attending Provider Active Start: July 26, 2024 End: July 26, 2024 Team Status: Inactive Member Role/Relationship Status Dates Dr. Marlon Shepherd DO Primary Care Provider Active Start: August 23, 2024 End: August 23, 2024 Dr. Marlon Shepherd DO Referring Provider Active Start: August 23, 2024 End: August 23, 2024 AALIYAH Swann Attending Provider Active Start: August 23, 2024 End: August 23, 2024 Team Status: Inactive Member Role/Relationship Status Dates Dr. Marlon Shepherd DO Primary Care Provider Active Start: September 18, 2024 End: September 18, 2024 Dr. Marlon Shepherd DO Referring Provider Active Start: September 18, 2024 End: September 18, 2024 AALIYAH Swann Attending Provider Active Start: September 18, 2024 End: September 18, 2024 Team Status: Inactive Member Role/Relationship Status Dates Dr. Marlon Shepherd DO Primary Care Provider Active Start: July 26, 2024 End: July 26, 2024 Dr. Marlon Shepherd DO Referring Provider Active Start: July 26, 2024 End: July 26, 2024 MICHAEL SwannC Attending Provider Active Start: July 26, 2024 End: July 26, 2024 Team Status: Inactive Member Role/Relationship Status Dates Dr. Marlon Shepherd DO Primary Care Provider Active Start: August 23, 2024 End: August 23, 2024 Dr. Marlon Shepherd DO Referring Provider Active Start: August 23, 2024 End: August 23, 2024 MICHAEL SwannC Attending Provider Active Start: August 23, 2024 End: August 23, 2024 Team Status: Inactive Member Role/Relationship Status Dates Dr. Marlon Shepherd DO Primary Care Provider Active Start: September 18, 2024 End: September 18, 2024 Dr. Marlon Shepherd DO Referring Provider Active Start: September 18, 2024 End: September 18, 2024 AALIYAH Swann Attending Provider Active Start: September 18, 2024 End: September 18, 2024 Team Status: Inactive Member Role/Relationship Status Dates Dr. Marlon Shepherd DO Primary Care Provider Active Start: October 31, 2024 End: October 31, 2024 Dr. Marlon Shepherd DO Referring Provider Active Start: October 31, 2024 End: October 31, 2024 AALIYAH Swann Attending Provider Active Start: October 31, 2024 End: October 31, 2024 Goals (unrecognized section and content) Goals may be documented in a n alternate sectionGoals may be documented in an alternate sectionGoals may be documented in an alternate sectionGoals may be documented in an alternate sectionGoals may be documented in an alternate sectionGoals may be documented in an alternate section Reason for Visit (unrecogniz ed section and content) Reason Comments Annual Exam Specialty Diagnoses / Procedures Referred By Iveth franco Referred To Contact Primary Care Procedures Follow Up In Primary Care Marlon Shepherd DO [address] [facility] [place] [address] Referral ID Status Reason Start Date Expiration Date Visits Re quested Visits Authorized [id number] Closed 06/10/2022 12/07/2022 1 1 Reason Comments URI DIZZY X TODAY, CONGE STION, RUNNY NOSE, SORE THROAT, X 4 DAYS Reason Comments URI Cough, chest congest ion, sore throat, ear fullness x 1 week Reason Comments Annual Exam 3 year f/u Menopause Pt would like to abisai k about possible hormone issues Reason Comments Abscess Abscess on right arsenio ast red, hot to tough, streaking x 3-4 days FOR RECORDS PERTAINING TO PATIENTS WHO ARE OR HAVE BEEN ENROLLED IN A CHEMICAL DEPENDENCY/SUBSTANCEABUSE PROGRAM, SOME INFORMATION MAY BE OMITTED. This clinical summary was aggregated from multiple sources. Caution should be exercised in using it in the provision of clinical care. This summary normalizes information from multiple sources, and as a consequence, information in this document may materially change the coding, format and clinical context of patient data. In addition, data may be omitted in some cases. CLINICAL DECISIONS SHOULD BE BASED ON THE PRIMARY CLINICAL RECORDS. [employer] provides no warranty or guarantee of the accuracy or completeness of information in this document.
--- NOTE | 2024-11-02 10:13 | BI_ITS ---
EXAM: DIAG MAMM W/CAD, BILAT; BREAST LIMITED UNILATERAL; BILAT BRST DAMARI STAND ALONE 11/02/2024 CLINICAL HISTORY: F, Age 39 y/o , SCREEN FOR BREAST CANCER; LUMP; ABN MAMM TECHNIQUE: DIAG MAMM W/CAD, BILAT; BREAST LIMITED UNILATERAL; BILAT BRST DAMARI STAND ALONE. COMPARISON: Baseline examination, no priors. FINDINGS: MAMMOGRAM: TISSUE DENSITY: The breasts are heterogeneously dense, which may obscure small masses. The mammogram demonstrates that the patient has dense breasts. Supplemental screening with whole breast ultrasound or MRI may be considered for further evaluation. Left breast: There are triangle skin markers indicating the area of palpable concern in the central lower left breast. Underlying the skin markers are no suspicious mammographic findings. Otherwise, there are no suspicious findings in the left breast. Right breast: There is an oval circumscribed mass in the retroareolar right breast. ULTRASOUND: Left breast: Ultrasound performed of the area of patient's palpable concern in the left breast at 5 o'clock to 5:30 o'clock 8 cm from the nipple demonstrates no suspicious sonographic findings. Right breast: Ultrasound performed of the retroareolar right breast demonstrates an oval circumscribed hypoechoic mass measuring 1.6 x 1.3 x 1.0 cm. This likely represents a fibroadenoma. This correlates with the mammographic finding. BI/Bilat Brst Damari Stand Alone IMPRESSION: 1. There are no suspicious mammographic or sonographic findings in the area of patient's concern in the left breast. There is no evidence of malignancy in the left breast. 2. Probably benign mass in the retroareolar right breast, which likely represe nts a fibroadenoma. Recommend short interval six-month diagnostic ultrasound of the right breast to further evaluate. OVERALL FINAL ASSESSMENT BI-RADS 3: PROBABLY BENIGN. RECOMMENDATION: 6 Month Follow-up A letter with findings and recommendations will be mailed to the patient. Reading Location: [id number]
== END | disposition home or self-care (01) ==
PROVIDERS: Referring Provider Nurse Practitioner Family; Visit Provider Nurse Practitioner Family
DX: N63.0 Unspecified lump in unspecified breast (principal); R92.8 Other abnormal and inconclusive findings on diagnostic imaging of breast
CPT/HCPCS: 76642; 77062; 77066; G0279

== ENCOUNTER → 2024-12-26 | Outpatient (CLI) | payer BC, SELFPAY ==
[2024-12-26 12:32] LABS: Hematocrit 42.5 % (37-47); Hemoglobin 14.0 g/dL (12.0-15.0); Immature Granulocytes Count 0.020 X10^3/uL (0.0-0.0); Mean Corp Hgb Conc 32.9 g/dL (32-36); Mean Corpuscular Volume 91.0 fL (81-99); Mean Platelet Vol. 11.1 fl (6.2-12.0); NRBC Flagged by Analyzer 0 % (0-5); Platelet Count 230 K/mm3 (150-450); RBC Distribution Width CV 13.2 % (11.6-14.6); RBC Distribution Width SD 43.9 fl (35.1-43.9); Red Blood Count 4.67 M/mm3 (4.2-5.4); White Blood Count 4.3 K/mm3 (4.4-11.0)
[2024-12-26 13:16] LABS: AST(SGOT) 18 U/L (<=31); Alanine Aminotransfer ALT/SGPT 15 U/L (<=34); Albumin, Serum 4.4 g/dL (3.5-5.0); Alkaline Phosphatase 70 U/L (35-104); Anion Gap 10 (5-15); BUN 11 mg/dL (4-19); BUN/Creat Ratio 14.6 RATIO (10-20); Calcium,Total 9.2 mg/dL (7.6-11.0); Carbon Dioxide 26.2 mmol/L (21.0-32.0); Chloride 104 mmol/L (98-108); Globulin 2.8 g/dL (2.2-4.2); Glucose 98 mg/dL (70-99); Potassium 3.8 mmol/L (3.3-5.1)
== END | disposition home or self-care (01) ==
PROVIDERS: Visit Provider Nurse Practitioner Family
DX: E66.9 Obesity, unspecified (principal); Z68.29 Body mass index [BMI] 29.0-29.9, adult
CPT/HCPCS: 36415; 80053; 85025